=== PATIENT | male | born 1990 | race Caucasian/White ===

== ENCOUNTER 2018-06-30 03:08 | Emergency (ER) | payer SELFPAY ==
[2018-06-30 03:49] LABS: Absolute Lymphocytes (CBC) 3.2 K/uL (0.7-4.9); Basophils % 0.7 % (0-1.3); Eosinophils % 0.8 % (0-4.4); Hematocrit 46.2 % (39.6-49.0); MPV 8.2 fL (7.6-11.3); Monocytes % 7.1 % (3.3-12.3)
[2018-06-30 03:52] LABS: Protime INR 1.09
[2018-06-30] MEDS ORDERED: NA CHLORIDE 0.9% 1,000 ML ONE ×2 (03:59→05:02)
[2018-06-30 04:28] LABS: ALT/SGPT 33 U/L (12-78); AST/SGOT 17 U/L (15-37); Albumin 4.3 g/dL (3.4-5.0); Alkaline Phosphatase 83 U/L (45-117); BUN Blood Urea Nitrogen 21 mg/dL (7-18); Bicarbonate 21 mmol/L (21-32); Bilirubin Direct 0.3 mg/dL (0-0.2); Bilirubin Total 1.4 mg/dL (0.2-1.0); Glucose Level 118 mg/dL (74-106); Potassium 3.2 mmol/L (3.5-5.1); Protein, Total 8.1 g/dL (6.4-8.2); Sodium Level 138 mmol/L (136-145)
[2018-06-30] MEDS ORDERED: POTASSIUM 25 MEQ EFFERV TAB ONE (05:02)
[2018-06-30 05:22] LABS: Urine Blood NEGATIVE (NEG); Urine Glucose NEGATIVE (NEG); Urine Protein NEGATIVE (NEG); Urine Specific Gravity <1.005 (1.005-1.030)
--- NOTE | 2018-06-30 05:22 | ER ---
Nurse's Notes [facility] Name: Vic Hernandez Age: 27 yrs Sex: Male : 1990 Arrival Date: 06/30/2018 Time: 03:19 Bed 7 Private MD: Diagnosis: Palpitations;Abuse of non-psychoactive substances;Hypokalemia;Unspecified kidney failure-insufficency Presentation: 06/30 03:15 Presenting complaint: EMS states: Called for patient with complaint of palpitations; lp1 States meth use about 2 hours ago, + ETOH, + Xanax; States hx of cardiac arrythmia. Transition of care: patient was not received from another setting of care. Onset of symptoms was June 30, 2018. Risk Assessment: Do you want to hurt yourself or someone else? Patient reports no desire to harm self or others. Initial Sepsis Screen: Does the patient meet any 2 criteria? RR > 20 per min. HR > 90 bpm. Does the patient have a suspected source of infection? No. Patient's initial sepsis screen is negative. Care prior to arrival: None. 03:15 Method Of Arrival: EMS: [facility] lp1 03:15 Acuity: ARISTIDES 2 lp1 Historical: - Allergies: 03:31 No Known Allergies; lp1 - Home Meds: 03:31 None [Active]; lp1 - PMHx: 03:31 ADD/ADHD; Anxiety; heart arrythmia; lp1 - PSHx: 03:31 None; lp1 - Immunization history:: Adult Immunizations up to date. - Social history:: Smoking status: Patient uses tobacco products, denies chronic smoking, but will smoke occasionally. - Ebola Screening: : No symptoms or risks identified at this time. - Family history:: not pertinent. Screenin:32 Abuse screen: Denies threats or abuse. Denies injuries from another. Nutritional lp1 screening: No deficits noted. Tuberculosis screening: No symptoms or risk factors identified. Fall Risk None identified. Assessment: 03:32 General: Appears uncomfortable, Behavior is anxious. Pain: Denies pain. Neuro: Level of lp1 Consciousness is awake, alert, obeys commands, Oriented to person, place, time, situation. Cardiovascular: Patient's skin is warm and dry. Respiratory: Respiratory effort is even, Breath sounds are clear bilaterally. Denies shortness of breath. GI: No deficits noted. : No deficits noted. EENT: No deficits noted. Derm: Skin is pink, warm \T\ dry. Musculoskeletal: No deficits noted. 04:30 Reassessment: Patient appears in no apparent distress at this time. Patient and/or lp1 family updated on plan of care and expected duration. Pain level reassessed. Patient states feeling better. 05:30 Reassessment: Patient and/or family updated on plan of care and expected duration. Pain lp1 level reassessed. Patient resting, eyes closed, respirations unlabored Patient states symptoms have improved. 05:57 Reassessment: Patient waiting for Taxi to arrive for ride home. lp1 Vital Signs: 03:15 BP 149 / 108; Pulse 117; Resp 24; Temp 98(O); Pulse Ox 100% on R/A; Weight 77.11 kg; lp1 Height 5 ft. 7 in. (170.18 cm); Pain 0/10; 03:37 BP 145 / 102; Pulse 108; Resp 20; Pulse Ox 99% on R/A; lp1 04:25 BP 136 / 85; Pulse 106; Resp 19; Pulse Ox 98% on R/A; lp1 05:25 BP 144 / 92; Pulse 90; Resp 20; Pulse Ox 98% on R/A; Pain 0/10; lp1 05:56 BP 137 / 89; Pulse 87; Resp 20; Pulse Ox 97% on R/A; Pain 0/10; lp1 03:15 Body Mass Index 26.63 (77.11 kg, 170.18 cm) lp1 ED Course: 03:14 Inserted saline lock: 20 gauge in right antecubital area, using aseptic technique. lp1 Blood collected. 03:18 EKG done, by ED staff, reviewed by Alvarez Leiva MD. lp1 03:19 Patient arrived in ED. ds1 03:22 Peg Yin, RN is Primary Nurse. lp1 03:27 Triage completed. lp1 03:30 Arm band placed on left wrist. lp1 03:32 Patient has correct armband on for positive identification. Placed in gown. Cardiac lp1 monitor on. Pulse ox on. NIBP on. 04:13 Alvarez Leiva MD is Attending Physician. shawn 05:17 Chest Single View XRAY In Process Unspecified. EDMS 05:26 No provider procedures requiring assistance completed. lp1 05:56 IV discontinued, No redness/swelling at site. Pressure dressing applied. lp1 Administered Medications: 03:49 Drug: NS 0.9% 1000 ml Route: IV; Rate: 1000 ml; Site: right antecubital; lp1 05:06 Follow up: IV Status: Completed infusion; IV Intake: 1000ml lp1 05:07 Drug: NS 0.9% 1000 ml Route: IV; Rate: 1 bolus; Site: right antecubital; lp1 05:57 Follow up: IV Status: Completed infusion; IV Intake: 1000ml lp1 05:07 Drug: Potassium Effervescent Tablet 50 mEq Route: PO; lp1 05:57 Follow up: Response: No adverse reaction lp1 Intake: 05:06 IV: 1000ml; Total: 1000ml. lp1 05:57 IV: 1000ml; Total: 2000ml. lp1 Outcome: 05:22 Discharge ordered by MD. escobar 05:56 Discharged to home ambulatory, with taxi lp1 05:56 Condition: good 05:56 Discharge instructions given to patient, Instructed on discharge instructions, follow up and referral plans. Demonstrated understanding of instructions, follow-up care. 06:14 Patient left the ED. lp1 Signatures: Dispatcher [employer] EDMS Alvarez Leiva MD MD cha Sanford, Demi ds1 Peg Yin, RN RN lp1 Corrections: (The following items were deleted from the chart) 03:30 03:30 BP 149 / 108; Pulse 117bpm; Resp 24bpm; Pulse Ox 100% RA; Temp 98F Oral; 77.11 lp1 kg; Height 5 ft. 7 in.; BMI: 26.6; Pain 0/10; lp1
--- NOTE | 2018-06-30 05:23 | EDPHYS ---
Physician Documentation [facility] Name: Vic Hernandez Age: 27 yrs Sex: Male : 1990 Arrival Date: 06/30/2018 Time: 03:19 Bed 7 Private MD: ED Physician Alvarez Leiva HPI: 06/30 04:47 This 27 yrs old Male presents to ER via EMS with complaints of Palpitations. shawn 04:47 The patient presents with a history of irregular heart beat, heart racing. Context: The shawn symptoms occur with anxiety. Onset: The symptoms/episode began/occurred just prior to arrival. Duration: The patient or guardian reports a single episode, that is still ongoing. Modifying factors: The symptoms are aggravated by nothing. The symptoms are alleviated by nothing. Associated signs and symptoms: The patient has no apparent associated signs or symptoms. Severity of symptoms: At their worst the symptoms were moderate. The patient has not experienced similar symptoms in the past. Historical: - Allergies: 03:31 No Known Allergies; lp1 - Home Meds: 03:31 None [Active]; lp1 - PMHx: 03:31 ADD/ADHD; Anxiety; heart arrythmia; lp1 - PSHx: 03:31 None; lp1 - Immunization history:: Adult Immunizations up to date. - Social history:: Smoking status: Patient uses tobacco products, denies chronic smoking, but will smoke occasionally. - Ebola Screening: : No symptoms or risks identified at this time. - Family history:: not pertinent. ROS: 04:47 Constitutional: Negative for fever, chills, and weight loss, Eyes: Negative for injury, shawn pain, redness, and discharge, ENT: Negative for injury, pain, and discharge, Neck: Negative for injury, pain, and swelling, Respiratory: Negative for shortness of breath, cough, wheezing, and pleuritic chest pain, Abdomen/GI: Negative for abdominal pain, nausea, vomiting, diarrhea, and constipation, Back: Negative for injury and pain, : Negative for injury, bleeding, discharge, and swelling, MS/Extremity: Negative for injury and deformity, Skin: Negative for injury, rash, and discoloration, Neuro: Negative for headache, weakness, numbness, tingling, and seizure, Psych: Negative for depression, anxiety, suicide ideation, homicidal ideation, and hallucinations, Allergy/Immunology: Negative for hives, rash, and allergies, Endocrine: Negative for neck swelling, polydipsia, polyuria, polyphagia, and marked weight changes, Hematologic/Lymphatic: Negative for swollen nodes, abnormal bleeding, and unusual bruising. 04:47 Cardiovascular: Positive for chest pain, palpitations. Exam: 04:47 Constitutional: This is a well developed, well nourished patient who is awake, alert, shawn and in no acute distress. Head/Face: Normocephalic, atraumatic. Eyes: Pupils equal round and reactive to light, extra-ocular motions intact. Lids and lashes normal. Conjunctiva and sclera are non-icteric and not injected. Cornea within normal limits. Periorbital areas with no swelling, redness, or edema. ENT: Nares patent. No nasal discharge, no septal abnormalities noted. Tympanic membranes are normal and external auditory canals are clear. Oropharynx with no redness, swelling, or masses, exudates, or evidence of obstruction, uvula midline. Mucous membranes moist. Neck: Trachea midline, no thyromegaly or masses palpated, and no cervical lymphadenopathy. Supple, full range of motion without nuchal rigidity, or vertebral point tenderness. No Meningismus. Chest/axilla: Normal chest wall appearance and motion. Nontender with no deformity. No lesions are appreciated. Cardiovascular: Regular rate and rhythm with a normal S1 and S2. No gallops, murmurs, or rubs. Normal PMI, no JVD. No pulse deficits. Respiratory: Lungs have equal breath sounds bilaterally, clear to auscultation and percussion. No rales, rhonchi or wheezes noted. No increased work of breathing, no retractions or nasal flaring. Abdomen/GI: Soft, non-tender, with normal bowel sounds. No distension or tympany. No guarding or rebound. No evidence of tenderness throughout. Back: No spinal tenderness. No costovertebral tenderness. Full range of motion. Skin: Warm, dry with normal turgor. Normal color with no rashes, no lesions, and no evidence of cellulitis. MS/ Extremity: Pulses equal, no cyanosis. Neurovascular intact. Full, normal range of motion. Neuro: Awake and alert, GCS 15, oriented to person, place, time, and situation. Cranial nerves II-XII grossly intact. Motor strength 5/5 in all extremities. Sensory grossly intact. Cerebellar exam normal. Normal gait. Psych: Awake, alert, with orientation to person, place and time. Behavior, mood, and affect are within normal limits. 04:47 Musculoskeletal/extremity: DVT Exam: No signs of deep vein thrombosis. no pain, no swelling, no tenderness, negative Homans' sign noted on exam, no appreciated bluish discoloration, no erythema, no increased warmth. Vital Signs: 03:15 BP 149 / 108; Pulse 117; Resp 24; Temp 98(O); Pulse Ox 100% on R/A; Weight 77.11 kg; lp1 Height 5 ft. 7 in. (170.18 cm); Pain 0/10; 03:37 BP 145 / 102; Pulse 108; Resp 20; Pulse Ox 99% on R/A; lp1 04:25 BP 136 / 85; Pulse 106; Resp 19; Pulse Ox 98% on R/A; lp1 05:25 BP 144 / 92; Pulse 90; Resp 20; Pulse Ox 98% on R/A; Pain 0/10; lp1 05:56 BP 137 / 89; Pulse 87; Resp 20; Pulse Ox 97% on R/A; Pain 0/10; lp1 03:15 Body Mass Index 26.63 (77.11 kg, 170.18 cm) lp1 MDM: 04:13 Patient medically screened. [facility] 04:49 Data reviewed: vital signs, nurses notes, lab test result(s), EKG, radiologic studies, shawn plain films. 06/30 03:28 Order name: Acetaminophen; Complete Time: 04:46 06/30 03:28 Order name: Basic Metabolic Panel; Complete Time: 04:46 06/30 03:28 Order name: CBC with Diff; Complete Time: 04:46 06/30 03:28 Order name: ETOH Level; Complete Time: 04:46 06/30 03:28 Order name: Hepatic Function; Complete Time: 04:46 06/30 03:28 Order name: PT-INR; Complete Time: 04:46 06/30 03:28 Order name: Ptt, Activated; Complete Time: 04:46 06/30 03:28 Order name: Salicylate; Complete Time: 04:46 06/30 03:28 Order name: Urine Drug Screen lp1 06/30 03:28 Order name: Troponin (emerg Dept Use Only); Complete Time: 04:46 [facility] 06/30 04:50 Order name: Chest Single View XRAY [facility] 06/30 05:04 Order name: Urine Dipstick--Ancillary (enter results) [facility] 06/30 03:28 Order name: EKG; Complete Time: 03:32 [facility] 06/30 03:28 Order name: EKG - Nurse/Tech; Complete Time: 03:36 [facility] 06/30 03:28 Order name: IV Saline Lock; Complete Time: 03:36 06/30 03:28 Order name: Labs collected and sent; Complete Time: 03:36 [facility] 06/30 03:28 Order name: Urine Dipstick-Ancillary (obtain specimen); Complete Time: 05:11 lp Administered Medications: 03:49 Drug: NS 0.9% 1000 ml Route: IV; Rate: 1000 ml; Site: right antecubital; 1 05:06 Follow up: IV Status: Completed infusion; IV Intake: 1000ml lp1 05:07 Drug: NS 0.9% 1000 ml Route: IV; Rate: 1 bolus; Site: right antecubital; lp1 05:57 Follow up: IV Status: Completed infusion; IV Intake: 1000ml lp1 05:07 Drug: Potassium Effervescent Tablet 50 mEq Route: PO; lp1 05:57 Follow up: Response: No adverse reaction 1 Disposition: 06/30/18 05:22 Discharged to Home. Impression: Palpitations, Abuse of non-psychoactive substances, Hypokalemia, Unspecified kidney failure - insufficency. - Condition is Stable. - Discharge Instructions: Stimulant Use Disorder-Amphetamines, Potassium Content of Foods, Palpitations, Substance Use Disorder, Stimulant Use Disorder-Methamphetamines, Palpitations, [id number], Chronic Kidney Disease, Adult, [id number], Hypokalemia. - Medication Reconciliation Form, Thank You Letter, Antibiotic Education, Prescription Opioid Use form. - Follow up: Private Physician; When: 2 - 3 days; Reason: Recheck today's complaints, Continuance of care, Re-evaluation by your physician. - Problem is new. - Symptoms have improved. Signatures: Dispatcher [employer] Alvarez Saenz MD MD cha Pena, Peg, RN RN lp1 Corrections: (The following items were deleted from the chart) 06:14 05:22 06/30/2018 05:22 Discharged to Home. Impression: Palpitations; Abuse of lp1 non-psychoactive substances; Hypokalemia; Unspecified kidney failure - insufficency. Condition is Stable. Discharge Instructions: Stimulant Use Disorder-Amphetamines, Potassium Content of Foods, Palpitations, Substance Use Disorder, Stimulant Use Disorder-Methamphetamines, Palpitations, [id number], Chronic Kidney Disease, Adult, Ilve-ry-Lbod, Hypokalemia. Forms are Medication Reconciliation Form, Thank You Letter, Antibiotic Education, Prescription Opioid Use. Follow up: Private Physician; When: 2 - 3 days; Reason: Recheck today's complaints, Continuance of care, Re-evaluation by your physician. Problem is new. Symptoms have improved. shawn
[2018-06-30 05:37] LABS: Barbiturates NEGATIVE (NEGATIVE); Benzodiazepines NEGATIVE (NEGATIVE); Cocaine NEGATIVE (NEGATIVE); METHAMPHETAM POSITIVE (NEGATIVE); Methadone NEGATIVE (NEGATIVE); Opiates NEGATIVE (NEGATIVE); Phencyclidine NEGATIVE (NEGATIVE); THC Cannibis NEGATIVE (NEGATIVE)
--- NOTE | 2018-06-30 07:11 | EKG ---
Test Date: 2018-06-30 Test Time: 03:18:05 Help Desk Engineer: ROSARIO MEASUREMENT RESULTS: Intervals: Rate: 107 HI: 184 QRSD: 96 QT: 332 QTc: 443 [place]: P: 59 HI: 184 QRS: 45 T: -20 INTERPRETIVE STATEMENTS: Sinus tachycardia T wave abnormality, consider inferior ischemia Abnormal ECG Compared to ECG 11/14/2015 16:09:51 T-wave abnormality now present Possible ischemia now present Sinus rhythm no longer present ST (T wave) deviation no longer present Electronically Signed On 06-30-18 07:11:09 CDT by Keyur Keane
--- NOTE | 2018-06-30 08:36 | RAD REPORT ---
EXAM DESCRIPTION: RAD - Chest Single View - 06/30/2018 5:16 am CLINICAL HISTORY: CHEST PAIN Chest pain. COMPARISON: Chest Single View dated 06/05/2016; CHEST SINGLE VIEW dated 09/14/2008; CHEST PA AND LAT 2 VIEW dated 05/30/2005 FINDINGS: Portable technique limits examination quality. The lungs are grossly clear. The heart is normal in size. No displaced fractures. IMPRESSION: No acute intrathoracic process suspected.
== END 2018-06-30 06:14 | disposition home or self-care (01) ==
LOC: ER 03:08
DX: R00.2 Palpitations (principal); F55.8 Abuse of other non-psychoactive substances; E87.6 Hypokalemia; N19 Unspecified kidney failure; F90.9 Attention-deficit hyperactivity disorder, unspecified type; F41.9 Anxiety disorder, unspecified; Z72.0 Tobacco use
CPT/HCPCS: 36415; 71045; 80048; 80076; 80307; 80320; 80329; 81003; 84484; 85025; 85610; 85730; 93005; 96360; 96361; 99285; J7030

== ENCOUNTER 2018-08-31 22:05 | Emergency (ER) | payer SELFPAY ==
--- NOTE | 2018-08-31 22:54 | EDPHYS ---
Physician Documentation [facility] Name: Vic Hernandez Age: 27 yrs Sex: Male : 1990 Arrival Date: 08/31/2018 Time: 22:07 Bed 13 Private MD: ED Physician Crow Go HPI: 08/31 22:49 This 27 yrs old Male presents to ER via Ambulatory with complaints of Boil. gs 22:49 The patient presents with an abscess of the suprapubic area. Description: The affected gs area is small, confluent, draining, erythematous. Onset: The symptoms/episode began/occurred 2 day(s) ago. Possible cause(s): unknown. Associated signs and symptoms: Pertinent negatives: fever. Modifying factors: the symptoms are alleviated by nothing, the symptoms are aggravated by squeezing the lesion and expressing the contents, touching. Severity of symptoms: At their worst the symptoms were moderate, in the emergency department the symptoms are unchanged. The patient has experienced similar episodes in the past, a few times. Historical: - Allergies: 22:25 No Known Allergies; ak1 - Home Meds: 22:25 hydroxyzine HCl 25 mg Oral tab 1 tab as needed for Anxiety [Active]; ak1 - PMHx: 22:25 ADD/ADHD; Anxiety; Heart Arrythmia; ak1 - PSHx: 22:25 None; ak1 - Immunization history:: Adult Immunizations unknown. - Social history:: Smoking status: Patient uses tobacco products, vape. - Ebola Screening: : No symptoms or risks identified at this time. ROS: 22:49 All other systems are negative. gs Exam: 22:49 Head/Face: Normocephalic, atraumatic. Eyes: Pupils equal round and reactive to light, gs extra-ocular motions intact. Lids and lashes normal. Conjunctiva and sclera are non-icteric and not injected. Cornea within normal limits. Periorbital areas with no swelling, redness, or edema. ENT: Nares patent. No nasal discharge, no septal abnormalities noted. Tympanic membranes are normal and external auditory canals are clear. Oropharynx with no redness, swelling, or masses, exudates, or evidence of obstruction, uvula midline. Mucous membranes moist. Neck: Trachea midline, no thyromegaly or masses palpated, and no cervical lymphadenopathy. Supple, full range of motion without nuchal rigidity, or vertebral point tenderness. No Meningismus. Chest/axilla: Normal chest wall appearance and motion. Nontender with no deformity. No lesions are appreciated. Cardiovascular: Regular rate and rhythm with a normal S1 and S2. No gallops, murmurs, or rubs. Normal PMI, no JVD. No pulse deficits. Respiratory: Lungs have equal breath sounds bilaterally, clear to auscultation and percussion. No rales, rhonchi or wheezes noted. No increased work of breathing, no retractions or nasal flaring. Abdomen/GI: Soft, non-tender, with normal bowel sounds. No distension or tympany. No guarding or rebound. No evidence of tenderness throughout. Back: No spinal tenderness. No costovertebral tenderness. Full range of motion. MS/ Extremity: Pulses equal, no cyanosis. Neurovascular intact. Full, normal range of motion. Neuro: Awake and alert, GCS 15, oriented to person, place, time, and situation. Cranial nerves II-XII grossly intact. Motor strength 5/5 in all extremities. Sensory grossly intact. Cerebellar exam normal. Normal gait. 22:49 Constitutional: The patient appears alert, awake. 22:49 Skin: abscess, that is small, of the suprapubic area, with drainage, with induration, cellulitis, that is mild, on the suprapubic area. Vital Signs: 22:22 BP 132 / 90; Pulse 87; Resp 16; Temp 98.2(O); Pulse Ox 99% on R/A; Weight 76.2 kg (R); ak1 Height 5 ft. 7 in. (170.18 cm) (R); Pain 8/10; 22:22 Body Mass Index 26.31 (76.20 kg, 170.18 cm) ak1 MDM: 22:38 Patient medically screened. gs 22:49 Differential diagnosis: abscess, cellulitis. Data reviewed: vital signs, nurses notes. gs Response to treatment: the patient's symptoms have mildly improved after treatment. ED course: asked for pain meds he has not tried any tylenol or motrin was instructed to try before a rx would be given. Administered Medications: No medications were administered Disposition: 08/31/18 22:52 Discharged to Home. Impression: Cutaneous abscess of trunk, unspecified, Cellulitis of trunk. - Condition is Stable. - Discharge Instructions: Skin Abscess. - Prescriptions for Bactrim DS 800- 160 mg Oral Tablet - take 2 tablet by ORAL route every 12 hours for 7 days; 28 tablet. - Medication Reconciliation Form, Thank You Letter, Antibiotic Education, Prescription Opioid Use form. - Follow up: Private Physician; When: 2 - 3 days; Reason: Re-evaluation by your physician. Signatures: Suzanne Colmenares RN RN cr4 Jade Barfield RN RN ak1 Crow Go MD MD Corrections: (The following items were deleted from the chart) 23:12 22:52 08/31/2018 22:52 Discharged to Home. Impression: Cutaneous abscess of trunk, cr4 unspecified; Cellulitis of trunk. Condition is Stable. Forms are Medication Reconciliation Form, Thank You Letter, Antibiotic Education, Prescription Opioid Use. Follow up: Private Physician; When: 2 - 3 days; Reason: Re-evaluation by your physician. gs
--- NOTE | 2018-08-31 22:54 | ER ---
Nurse's Notes [facility] Name: Vic Hernandez Age: 27 yrs Sex: Male : 1990 Arrival Date: 08/31/2018 Time: 22:07 Bed 13 Private MD: Diagnosis: Cutaneous abscess of trunk, unspecified;Cellulitis of trunk Presentation: 08/31 22:23 Presenting complaint: Patient states: abscess to right lower abd X5 days with ak1 discharge. pt c/o abscess on penis shaft with no discharge at this time. Transition of care: patient was not received from another setting of care. Onset of symptoms is unknown. Risk Assessment: Do you want to hurt yourself or someone else? Patient reports no desire to harm self or others. Initial Sepsis Screen: Does the patient meet any 2 criteria? No. Patient's initial sepsis screen is negative. Does the patient have a suspected source of infection? No. Patient's initial sepsis screen is negative. Care prior to arrival: None. 22:23 Acuity: ARISTIDES 4 ak1 22:23 Method Of Arrival: Ambulatory ak1 Triage Assessment: 22:25 General: Appears in no apparent distress. Behavior is calm, cooperative. ak1 Historical: - Allergies: 22:25 No Known Allergies; ak1 - Home Meds: 22:25 hydroxyzine HCl 25 mg Oral tab 1 tab as needed for Anxiety [Active]; ak1 - PMHx: 22:25 ADD/ADHD; Anxiety; Heart Arrythmia; ak1 - PSHx: 22:25 None; ak1 - Immunization history:: Adult Immunizations unknown. - Social history:: Smoking status: Patient uses tobacco products, vape. - Ebola Screening: : No symptoms or risks identified at this time. Screenin:25 Abuse screen: Denies threats or abuse. Denies injuries from another. Nutritional ak1 screening: No deficits noted. Tuberculosis screening: No symptoms or risk factors identified. Fall Risk None identified. Assessment: 22:35 General: Appears uncomfortable, slender, well groomed, Behavior is calm, cooperative. cr4 Pain: Complains of pain in pelvis and suprapubic area. Neuro: No deficits noted. Cardiovascular: No deficits noted. Respiratory: No deficits noted. GI: No deficits noted. : No deficits noted. EENT: No deficits noted. Derm: Skin has lesions on boil that is draining small amounts of blood, area red and tender to touch. Skin is red. Musculoskeletal: No deficits noted. Vital Signs: 22:22 BP 132 / 90; Pulse 87; Resp 16; Temp 98.2(O); Pulse Ox 99% on R/A; Weight 76.2 kg (R); ak1 Height 5 ft. 7 in. (170.18 cm) (R); Pain 8/10; 22:22 Body Mass Index 26.31 (76.20 kg, 170.18 cm) ak1 ED Course: 22:07 Patient arrived in ED. ds1 22:19 Crow Go MD is Attending Physician. 22:22 Arm band placed on Patient placed in an exam room, on a stretcher, on pulse oximetry, ak1 Patient notified of wait time. 22:24 Triage completed. ak1 22:25 Patient has correct armband on for positive identification. Bed in low position. Call ak1 light in reach. Side rails up X 1. Pulse ox on. NIBP on. 23:09 No provider procedures requiring assistance completed. Patient did not have IV access cr4 during this emergency room visit. Administered Medications: No medications were administered Outcome: 22:52 Discharge ordered by . 23:09 Discharged to home ambulatory. cr4 23:09 Condition: good 23:09 Discharge instructions given to patient, Instructed on discharge instructions, follow up and referral plans. medication usage, Demonstrated understanding of instructions, follow-up care, medications, instructed in use of hibiclens soap. 23:12 Patient left the ED. cr4 Signatures: Christine Prieto ds1 Suzanne Colmenares RN RN cr4 Jade Barfield RN RN ak1 Crow Go MD MD
== END 2018-08-31 23:12 | disposition home or self-care (01) ==
LOC: ER 22:05
DX: L03.319 Cellulitis of trunk, unspecified (principal); F90.9 Attention-deficit hyperactivity disorder, unspecified type; F41.9 Anxiety disorder, unspecified; Z72.0 Tobacco use
CPT/HCPCS: 99283

== ENCOUNTER 2018-09-07 13:55 | Emergency (ER) | payer SELFPAY ==
[2018-09-07 14:33] LABS: Urine Blood TRACE (NEG); Urine Glucose NEGATIVE (NEG); Urine Protein NEGATIVE (NEG); Urine pH 6.5 (5.0-7.0)
[2018-09-07 14:37] LABS: Absolute Lymphocytes (CBC) 2.7 K/uL (0.7-4.9); Basophils % 0.7 % (0-1.3); Eosinophils % 0.2 % (0-4.4); Hematocrit 46.3 % (39.6-49.0); Lymphocytes % 18.2 % (15.3-44.8); MPV 8.2 fL (7.6-11.3); Monocytes % 5.4 % (3.3-12.3)
--- NOTE | 2018-09-07 14:39 | RAD REPORT ---
EXAM DESCRIPTION: RAD - Chest Single View - 09/07/2018 2:33 pm CLINICAL HISTORY: CHEST PAIN Chest pain. COMPARISON: Chest Single View dated 06/30/2018; Chest Single View dated 06/05/2016; CHEST SINGLE VIEW dated 09/14/2008; CHEST PA AND LAT 2 VIEW dated 05/30/2005 FINDINGS: Portable technique limits examination quality. The lungs are grossly clear. The heart is upper limit of normal in size. No displaced fractures. IMPRESSION: No acute intrathoracic process suspected.
[2018-09-07 14:46] LABS: Barbiturates NEGATIVE (NEGATIVE); Benzodiazepines NEGATIVE (NEGATIVE); Cocaine NEGATIVE (NEGATIVE); METHAMPHETAM POSITIVE (NEGATIVE); Methadone NEGATIVE (NEGATIVE); Opiates NEGATIVE (NEGATIVE); Phencyclidine NEGATIVE (NEGATIVE); THC Cannibis NEGATIVE (NEGATIVE)
--- NOTE | 2018-09-07 14:51 | EKG ---
Test Date: 2018-09-07 Test Time: 14:43:47 Security Administrator: RICHA/ MEASUREMENT RESULTS: Intervals: Rate: 91 CO: 198 QRSD: 100 QT: 350 QTc: 430 [place]: P: 49 CO: 198 QRS: 2 T: 0 INTERPRETIVE STATEMENTS: Normal sinus rhythm Minimal voltage criteria for LVH, may be normal variant Borderline ECG Compared to ECG 06/30/2018 03:18:05 Left ventricular hypertrophy now present Sinus tachycardia no longer present T-wave abnormality no longer present Possible ischemia no longer present Electronically Signed On 09-07-18 14:51:08 CDT by Keyur Keane
[2018-09-07 14:56] LABS: Albumin 4.1 g/dL (3.4-5.0); Bilirubin Direct 0.2 mg/dL (0-0.2); Bilirubin Total 0.6 mg/dL (0.2-1.0); Magnesium 2.2 mg/dL (1.8-2.4); Potassium 3.7 mmol/L (3.5-5.1); Protein, Total 8.2 g/dL (6.4-8.2); Troponin (Emerg Dept Use Only) 0.03 ng/mL (0.0-0.045)
--- NOTE | 2018-09-07 16:03 | EDPHYS ---
Physician Documentation [facility] Name: Vic Hernandez Age: 27 yrs Sex: Male : 1990 Arrival Date: 09/07/2018 Time: 13:59 Bed 26 Private MD: ED Physician Crow Go HPI: 09/07 15:50 This 27 yrs old Male presents to ER via EMS with complaints of Chest pain, pm1 palpitations, anxiety. 15:50 The patient or guardian reports chest pain that is located primarily in the mid-sternal pm1 area. The pain does not radiate. Associated signs and symptoms: Pertinent positives: palpitations, Anxiety. The chest pain is described as sharp. Duration: The patient or guardian reports a single episode, that is now resolved. Modifying factors: The symptoms are alleviated by nothing. the symptoms are aggravated by Meth - smoke and ate it last night. Onset of palpitations, chest pain, and anxiety after drug use. Severity of pain: in the emergency department the pain has resolved. The patient has not recently seen a physician. Historical: - Allergies: 14:04 No Known Allergies; mg2 - Home Meds: 14:04 hydroxyzine HCl 25 mg Oral tab 1 tab as needed for Anxiety [Active]; Metoprolol mg2 Tartrate Oral [Active]; - PMHx: 14:04 ADD/ADHD; Anxiety; Heart Arrythmia; mg2 - PSHx: 14:04 None; mg2 - Immunization history:: Flu vaccine is not up to date. - Social history:: Smoking status: Patient uses tobacco products, vape, Patient uses alcohol, on a daily basis. street drugs, Methamphetamine (Meth). - Ebola Screening: : No symptoms or risks identified at this time. ROS: 15:50 Constitutional: Negative for fever, chills, and weight loss, Eyes: Negative for injury, pm1 pain, redness, and discharge, ENT: Negative for injury, pain, and discharge, Neck: Negative for injury, pain, and swelling, Respiratory: Negative for shortness of breath, cough, wheezing, and pleuritic chest pain. 15:50 Abdomen/GI: Negative for abdominal pain, nausea, vomiting, diarrhea, and constipation, Back: Negative for injury and pain, : Negative for injury, bleeding, discharge, and swelling, MS/Extremity: Negative for injury and deformity, Skin: Negative for injury, rash, and discoloration, Neuro: Negative for headache, weakness, numbness, tingling, and seizure. 15:50 Cardiovascular: Positive for chest pain, palpitations, Negative for edema. 15:50 Psych: Positive for anxiety, Negative for auditory hallucinations, visual hallucinations, homicidal ideation, suicide gesture, suicidal ideation. Exam: 15:50 Constitutional: This is a well developed, well nourished patient who is awake, alert, pm1 and in no acute distress. Head/Face: Normocephalic, atraumatic. Eyes: Pupils equal round and reactive to light, extra-ocular motions intact. Lids and lashes normal. Conjunctiva and sclera are non-icteric and not injected. Cornea within normal limits. Periorbital areas with no swelling, redness, or edema. ENT: Nares patent. No nasal discharge, no septal abnormalities noted. Tympanic membranes are normal and external auditory canals are clear. Oropharynx with no redness, swelling, or masses, exudates, or evidence of obstruction, uvula midline. Mucous membranes moist. Neck: Trachea midline, no thyromegaly or masses palpated, and no cervical lymphadenopathy. Supple, full range of motion without nuchal rigidity, or vertebral point tenderness. No Meningismus. Chest/axilla: Normal chest wall appearance and motion. Nontender with no deformity. No lesions are appreciated. Cardiovascular: Regular rate and rhythm with a normal S1 and S2. No gallops, murmurs, or rubs. Normal PMI, no JVD. No pulse deficits. Respiratory: Lungs have equal breath sounds bilaterally, clear to auscultation and percussion. No rales, rhonchi or wheezes noted. No increased work of breathing, no retractions or nasal flaring. Abdomen/GI: Soft, non-tender, with normal bowel sounds. No distension or tympany. No guarding or rebound. No evidence of tenderness throughout. Back: No spinal tenderness. No costovertebral tenderness. Full range of motion. Skin: Warm, dry with normal turgor. Normal color with no rashes, no lesions, and no evidence of cellulitis. MS/ Extremity: Pulses equal, no cyanosis. Neurovascular intact. Full, normal range of motion. 15:50 Neuro: Orientation: is normal, Motor: is normal, moves all fours, Sensation: is normal, no obvious gross deficits, Gait: is steady, at a normal pace, without difficulty. Vital Signs: 14:02 BP 144 / 101; Pulse 98; Resp 18; Temp 99.2; Pulse Ox 100% on R/A; Weight 76.2 kg; mg2 Height 5 ft. 6 in. (167.64 cm); Pain 0/10; 15:21 Pulse 97; Resp 18; Pulse Ox 100% on R/A; Pain 0/10; mg2 16:15 BP 149 / 91; Pulse 97; Resp 18; Temp 98; Pulse Ox 100% on R/A; Pain 0/10; mg2 14:02 Body Mass Index 27.12 (76.20 kg, 167.64 cm) mg2 MDM: 14:14 Patient medically screened. pm1 16:00 Data reviewed: vital signs. Data interpreted: Pulse oximetry: on room air is 100 %. pm1 Interpretation: normal. 16:00 Counseling: I had a detailed discussion with the patient and/or guardian regarding: the pm1 historical points, exam findings, and any diagnostic results supporting the discharge/admit diagnosis, lab results, radiology results, the need for outpatient follow up, to return to the emergency department if symptoms worsen or persist or if there are any questions or concerns that arise at home, Drug use cessation. 09/07 14:11 Order name: Basic Metabolic Panel; Complete Time: 15:[facility] [place] 09/07 14:11 Order name: CBC with Diff; Complete Time: 15:49 [facility] [place] 09/07 14:11 Order name: LFT's; Complete Time: 15:49 [facility] [place] 09/07 14:11 Order name: Magnesium; Complete Time: 15:49 [facility] [place] 09/07 14:11 Order name: NT PRO-BNP; Complete Time: 15:49 [facility] [place] 09/07 14:11 Order name: PT-INR; Complete Time: 14:54 [facility] [place] 09/07 14:11 Order name: Troponin (emerg Dept Use Only); Complete Time: 15:49 [facility] [place] 09/07 14:12 Order name: UDS; Complete Time: 14:54 [facility] [place] 09/07 14:19 Order name: Acetaminophen; Complete Time: 15:49 pm1 09/07 14:19 Order name: ETOH Level; Complete Time: 15:49 pm1 09/07 14:19 Order name: Ptt, Activated; Complete Time: 15:49 pm1 09/07 14:19 Order name: Salicylate; Complete Time: 15:49 pm1 09/07 14:31 Order name: Urine Dipstick--Ancillary (enter results) 09/07 14:33 Order name: Urine Dipstick-Ancillary EDND 09/07 14:05 Order name: EKG - Nurse/Tech; Complete Time: 14:51 mg2 09/07 14:11 Order name: XRAY Chest (1 view); Complete Time: 14:54 mg2 09/07 14:11 Order name: EKG; Complete Time: 14:12 mg2 09/07 14:11 Order name: Cardiac monitoring; Complete Time: 14:23 mg2 09/07 14:11 Order name: IV Saline Lock; Complete Time: 14:23 mg2 09/07 14:11 Order name: Labs collected and sent; Complete Time: 14:23 mg2 09/07 14:11 Order name: O2 Per Protocol; Complete Time: 14:23 mg2 09/07 14:11 Order name: O2 Sat Monitoring; Complete Time: 14:23 mg2 09/07 14:19 Order name: Urine Dipstick-Ancillary (obtain specimen); Complete Time: 14:23 pm1 Administered Medications: No medications were administered Disposition: 09/07/18 16:02 Discharged to Home. Impression: Other stimulant abuse - methamphetmine abuse, Chest pain, unspecified, Palpitations. - Condition is Stable. - Discharge Instructions: Nonspecific Chest Pain, Palpitations, Stimulant Use Disorder-Methamphetamines. - Medication Reconciliation Form, Thank You Letter, Antibiotic Education, Prescription Opioid Use form. - Follow up: Emergency Department; When: As needed; Reason: Worsening of condition. Follow up: Private Physician; When: 2 - 3 days; Reason: Recheck today's complaints, Continuance of care, Re-evaluation by your physician. - Problem is new. - Symptoms have improved. Addendum: 09/09/2018 07:37 Co-signature as Attending Physician, Crow Go MD. g s Signatures: Dispatcher [employer] [facility] Richard Guallpa, CULINARY SPECIALIST CULINARY SPECIALIST pm1 Crow Go MD MD Aristeo Strange RN RN mg2 Corrections: (The following items were deleted from the chart) 09/07 16:19 16:02 09/07/2018 16:02 Discharged to Home. Impression: Other stimulant abuse - mg2 methamphetmine abuse; Chest pain, unspecified; Palpitations. Condition is Stable. Forms are Medication Reconciliation Form, Thank You Letter, Antibiotic Education, Prescription Opioid Use. Follow up: Emergency Department; When: As needed; Reason: Worsening of condition. Follow up: Private Physician; When: 2 - 3 days; Reason: Recheck today's complaints, Continuance of care, Re-evaluation by your physician. Problem is new. Symptoms have improved. pm1
--- NOTE | 2018-09-07 16:03 | ER ---
Nurse's Notes [facility] Name: Vic Hernandez Age: 27 yrs Sex: Male : 1990 Arrival Date: 09/07/2018 Time: 13:59 Bed 26 Private MD: Diagnosis: Other stimulant abuse-methamphetmine abuse;Chest pain, unspecified;Palpitations Presentation: 09/07 13:59 Presenting complaint: EMS states: patient reported chest pain and palpitation and mg2 anxiety since last night. denies chest pain now. had 0.2 gm of meth last night. BGL-80 mg/dl, history of cardiac arrythmia on metoprolol. he also had hydroxyzine for his anxiety. Transition of care: patient was not received from another setting of care. Onset of symptoms was September 06, 2018. Risk Assessment: Do you want to hurt yourself or someone else? Patient reports no desire to harm self or others. Initial Sepsis Screen: Does the patient meet any 2 criteria? No. Patient's initial sepsis screen is negative. Does the patient have a suspected source of infection? No. Patient's initial sepsis screen is negative. Care prior to arrival: None. 13:59 Method Of Arrival: EMS mg2 13:59 Acuity: ARISTIDES 3 mg2 Historical: - Allergies: 14:04 No Known Allergies; mg2 - Home Meds: 14:04 hydroxyzine HCl 25 mg Oral tab 1 tab as needed for Anxiety [Active]; Metoprolol mg2 Tartrate Oral [Active]; - PMHx: 14:04 ADD/ADHD; Anxiety; Heart Arrythmia; mg2 - PSHx: 14:04 None; mg2 - Immunization history:: Flu vaccine is not up to date. - Social history:: Smoking status: Patient uses tobacco products, vape, Patient uses alcohol, on a daily basis. street drugs, Methamphetamine (Meth). - Ebola Screening: : No symptoms or risks identified at this time. Screenin:26 Abuse screen: Denies threats or abuse. Denies injuries from another. Nutritional mg2 screening: No deficits noted. Tuberculosis screening: No symptoms or risk factors identified. Fall Risk IV access (20 points). Assessment: 14:24 General: Appears in no apparent distress. comfortable, Behavior is calm, cooperative. mg2 Pain: Denies pain. Neuro: Level of Consciousness is awake, alert, obeys commands, Oriented to person, place, time, situation. Cardiovascular: Capillary refill < 3 seconds Patient's skin is warm and dry. Cardiovascular: Reports chest pain, palpitations. Respiratory: Airway is patent Respiratory effort is even, unlabored, Respiratory pattern is regular, symmetrical. GI: No signs and/or symptoms were reported involving the gastrointestinal system. : No signs and/or symptoms were reported regarding the genitourinary system. EENT: No signs and/or symptoms were reported regarding the EENT system. Derm: Skin is intact, is healthy with good turgor, Skin is pink, warm \T\ dry. normal. Musculoskeletal: Circulation, motion, and sensation intact. Capillary refill < 3 seconds. 14:26 Neuro: Reports anxiety last night. mg2 Vital Signs: 14:02 BP 144 / 101; Pulse 98; Resp 18; Temp 99.2; Pulse Ox 100% on R/A; Weight 76.2 kg; mg2 Height 5 ft. 6 in. (167.64 cm); Pain 0/10; 15:21 Pulse 97; Resp 18; Pulse Ox 100% on R/A; Pain 0/10; mg2 16:15 BP 149 / 91; Pulse 97; Resp 18; Temp 98; Pulse Ox 100% on R/A; Pain 0/10; mg2 14:02 Body Mass Index 27.12 (76.20 kg, 167.64 cm) mg2 ED Course: 13:59 Patient arrived in ED. mg2 14:02 Triage completed. mg2 14:05 Aristeo Strange, RICKY is Primary Nurse. mg2 14:05 Arm band placed on. mg2 14:11 Richard Guallpa NP is PHCP. pm1 14:11 Crow Go MD is Attending Physician. pm1 14:26 No provider procedures requiring assistance completed. Inserted saline lock: 20 gauge mg2 in left antecubital area, using aseptic technique. Blood collected. by ANNA Bryan Tech. 14:27 Patient has correct armband on for positive identification. surveillance system monitor on. Pulse mg2 ox on. NIBP on. Door closed. Warm blanket given. 14:31 X-ray completed. Portable x-ray completed in exam room. Patient tolerated procedure ls3 well. 14:34 XRAY Chest (1 view) In Process Unspecified. EDMS 14:48 EKG done, by configuration technician. reviewed by Crow Go MD. tc 16:15 IV discontinued, intact, bleeding controlled, No redness/swelling at site. Pressure mg2 dressing applied. Administered Medications: No medications were administered Outcome: 16:02 Discharge ordered by . pm1 16:15 Discharged to home ambulatory. mg2 16:15 Condition: stable 16:15 Discharge instructions given to patient, Instructed on discharge instructions, follow up and referral plans. Demonstrated understanding of instructions, follow-up care. 16:19 Patient left the ED. mg2 Signatures: Dispatcher [employer] EDMS Pinky Reaves, plowing gardens EKG Ttc Richard Guallpa, KAROL CARBURETOR REBUILDER pm1 Aristeo Strange, RICKY RN mg2 Az Mahmood ls3
== END 2018-09-07 16:19 | disposition home or self-care (01) ==
LOC: ER 13:55
DX: F15.10 Other stimulant abuse, uncomplicated (principal); R07.9 Chest pain, unspecified; R00.2 Palpitations; F41.9 Anxiety disorder, unspecified; F90.9 Attention-deficit hyperactivity disorder, unspecified type; Z72.0 Tobacco use
CPT/HCPCS: 36415; 71045; 80048; 80076; 80307; 80320; 80329; 81003; 83735; 83880; 84484; 85025; 85610; 85730; 93005; 99284

== ENCOUNTER 2018-10-30 23:06 | Emergency (ER) | payer SELFPAY ==
--- OUTSIDE RECORDS SUMMARY | 2018-10-30 23:08 | XMS REPORT | Summary of Care ---
:1990 Author Organization [facility] - Health Address [address] [place] [id number] Care Team Providers Name Role Phone Lupe Arora Primary Care Provider Reason for Visit Reason Comments Penis/Scrotum Problem Auth/Cert Status Reason Specialty Diagnoses / Referred By Referred To Procedures Contact Contact [facility] [address] [place] [address] [place] [address] Encounter Details Date Type Department Care Team Description 10/20/2018 Emergency [facility]Emer[facility] Kassandra Ybarra, Folliculitis (Primary Department NURSE MONITORING Dx) [address] [place] [address] [facility] [place] [address] [id number] [place], [place] [id number] Allergies No Known Allergiesdocumented as of this encounter (statuses as of 10/20/2018) Medications Medication Sig Dispensed Refills Start Date End Date Status losartan 50 mg tablet Take 50 mg by 0 Active mouth daily. cephALEXin (KEFLEX) Take 1 capsule 28 capsule 0 10/20/2018 10/27/2018 Active 500 mg by mouth 4 capsuleIndications: (four) times Folliculitis daily for 7 days. ibuprofen 600 mg Take 1 tablet 30 tablet 0 10/20/2018 Active tabletIndications: by mouth every Folliculitis 6 (six) hours as needed for Pain (scale 1-3). chlorhexidine 4 % Apply to 1 Bottle 2 10/20/2018 Active external area(s) once liquidIndications: daily as needed Folliculitis for Wound care. documented as of this encounter (statuses as of 10/20/2018) Active Problems No known active problemsdocumented as of this encounter (statuses as of 2018) Social History Tobacco Use Types Packs/Day Years Used Date Never Assessed Sex Assigned at Date Recorded Not on file Job Start Date Occupation Industry Not on file Not on file Not on file Travel History Travel Start Travel End No recent travel history available. documented as of this encounter Last Filed Vital Signs Vital Sign Reading Time Taken Comments Blood Pressure 134/77 10/20/2018 8:06 PM CDT Pulse 98 10/20/2018 8:06 PM CDT Temperature 37.1 C (98.8 F) 10/20/2018 8:06 PM CDT Respiratory Rate 20 10/20/2018 8:06 PM CDT Oxygen Saturation 98% 10/20/2018 8:06 PM CDT Inhaled Oxygen Concentration - - Weight 77.1 kg (170 lb) 10/20/2018 8:06 PM CDT Height 167.6 cm (5' 6") 10/20/2018 8:06 PM CDT Body Mass Index 27.44 10/20/2018 8:06 PM CDT documented in this encounter Discharge Instructions Kassandra Ortiz NP - 10/20/2018Diagnosis: Folliculitis Prescriptions for Cephalexin , Motrin, Chlorhexidine liquid Sent to your [facility] Follow up in the clinic as needed ALWAYS USE PROTECTION AttachmentsThe following attachments cannot be sent through Care Everywhere.Folliculitis (Rwandan)Folliculitis, Understanding (Rwandan) documented in this encounter Plan of Treatment Health Maintenance Due Date Last Done Comments VARICELLA VACCINES (1 of 2 - 13+ 2001 2-dose series) DTaP,Tdap,and Td Vaccines (1 - 12/27/2007 Tdap) INFLUENZA VACCINE (#1) 2018 PNEUMOCOCCAL 0-64 YEARS COMBINED Aged Out No longer eligible based on SERIES patient's age to complete this topic documented as of this encounter Procedures Procedure Name Priority Date/Time Associated Diagnosis Comments NOTICE OF PRIVACY Routine 10/20/2018 7:57 PM CDT PRACTICES CONSENT/REFUSAL FOR Routine 10/20/2018 7:56 PM CDT DIAGNOSIS AND TREATMENT documented in this encounter Results Not on filedocumented in this encounter Visit Diagnoses Diagnosis Folliculitis - Primary Other specified disease of hair and hair follicles documented in this encounter Administered Medications Medication Order MAR Action Action Date Dose Rate Site cephALEXin (KEFLEX) capsule 500 Given 10/20/2018 8:42 PM CDT 500 mg mg 500 mg, Oral, ONCE, 1 dose, Tue10/20/18 at 2130, JOEL, Reason for Anti-Infective: Documented Infection, Documented Infection Site: Skin / Soft Tissue, Duration of Therapy: 7 days ibuprofen (IBU) tablet 800 mg Given 10/20/2018 8:42 PM CDT 800 mg 800 mg, Oral, ONCE, 1 dose, Tue10/20/18 at 2130, JOEL documented in this encounter
--- OUTSIDE RECORDS SUMMARY | 2018-10-30 23:08 | XMS REPORT ---
:1990 [facility] Address [address] [place] [address] Dr. Alicia [address] [place] [id number] Care Team Providers Name Role Phone Unavailable Unavailable Unavailable Problems This patient has no known problems. Allergies, Adverse Reactions, Alerts This patient has no known allergies or adverse reactions. Medications This patient has no known medications.
--- NOTE | 2018-10-30 23:37 | ER ---
Nurse's Notes [facility] Name: Vic Hernandez Age: 27 yrs Sex: Male : 1990 Arrival Date: 10/30/2018 Time: 23:09 Bed 19 Private MD: Diagnosis: Other stimulant abuse-methamphetamine abuse;Benzodiazepine abuse Presentation: 10/30 23:16 Presenting complaint: Patient states: States "my heart was feeling like it was beating ea out of my chest" pt reports symptoms started 5 hours ago. Reports he started feeling dizzy and started having tingling that radiated to his left arm. Pt reports he used xanax and meth today. Transition of care: patient was not received from another setting of care. Onset of symptoms was October 30, 2018. Risk Assessment: Do you want to hurt yourself or someone else? Patient reports no desire to harm self or others. Initial Sepsis Screen: Does the patient meet any 2 criteria? No. Patient's initial sepsis screen is negative. Does the patient have a suspected source of infection? No. Patient's initial sepsis screen is negative. Care prior to arrival: None. 23:16 Method Of Arrival: Ambulatory ea 23:16 Acuity: ARISTIDES 3 ea Triage Assessment: 23:21 General: Appears in no apparent distress. Behavior is appropriate for age. Pain: ea Complains of pain in chest. Cardiovascular: Patient's skin is warm and dry. Historical: - Allergies: 23:20 No Known Allergies; ea - Home Meds: 23:20 Metoprolol Tartrate Oral [Active]; hydroxyzine HCl 25 mg Oral tab 1 tab as needed for ea Anxiety [Active]; - PMHx: 23:20 Heart Arrythmia; Anxiety; ADD/ADHD; ea - PSHx: 23:20 None; ea - Immunization history:: Adult Immunizations up to date. - Social history:: Smoking status: Patient/guardian denies using tobacco, Patient uses alcohol, on a daily basis. street drugs, Methamphetamine (Meth). - Ebola Screening: : No symptoms or risks identified at this time. Screenin:19 Abuse screen: Denies threats or abuse. Nutritional screening: No deficits noted. ea Tuberculosis screening: No symptoms or risk factors identified. Fall Risk None identified. Assessment: 23:22 General: Appears in no apparent distress. Behavior is appropriate for age. Pain: ea Complains of pain in chest Pain does not radiate. report his left arm feels like it is tingling Pain began 5 hours ago. Neuro: Level of Consciousness is awake, alert, obeys commands, Oriented to person, place, time, situation. Cardiovascular: Patient's skin is warm and dry. Respiratory: Airway is patent Respiratory effort is even, unlabored, Respiratory pattern is regular, symmetrical. 10/31 00:06 Reassessment: Discharge instructions given to patient. Patient agree with the POC and ao to follow up with PCP. Patient refused to sign Discharge paper and states that he want to get lab work done. Richard Guallpa NP notified. Vital Signs: 10/30 23:18 BP 150 / 102; Pulse 81; Resp 20; Temp 97.9; Pulse Ox 100% ; Weight 77.11 kg; Height 5 ea ft. 6 in. (167.64 cm); Pain 9/10; 23:18 Body Mass Index 27.44 (77.11 kg, 167.64 cm) ea ED Course: 23:09 Patient arrived in ED. cf2 23:11 Cruz Ramesh RN is Primary Nurse. ao 23:13 Richard Guallpa NP is PHCP. pm1 23:13 Koko Alvares MD is Attending Physician. pm1 23:18 Triage completed. ea 23:20 Patient has correct armband on for positive identification. Bed in low position. Call ea light in reach. youth nutritional monitor on. Pulse ox on. NIBP on. 23:23 Arm band placed on right wrist. Patient placed in an exam room, on a stretcher, on ea pulse oximetry. 23:23 Patient maintains SpO2 saturation greater than 95% on room air. ea 23:29 EKG done, by ED staff. jd2 10/31 00:05 No provider procedures requiring assistance completed. Patient did not have IV access ao during this emergency room visit. Administered Medications: No medications were administered Outcome: 10/30 23:36 Discharge ordered by . pm1 10/31 00:06 Discharged to home ambulatory. ao Condition: stable Discharge instructions given to patient, Instructed on discharge instructions, follow up and referral plans. Demonstrated understanding of instructions, follow-up care, medications. 00:10 Patient left the ED. ao Signatures: Cruz Ramesh RN RN ao Marinas, Patrick, NP SAFETY AIDE pm1 Aruna Zimmerman jd2 Ankita Salmon, RN RN ea Sunni Mendez cf2
--- NOTE | 2018-10-30 23:37 | EDPHYS ---
Physician Documentation [facility] Name: Vic Hernandez Age: 27 yrs Sex: Male : 1990 Arrival Date: 10/30/2018 Time: 23:09 Bed 19 Private MD: ED Physician Koko Alvares HPI: 10/30 23:35 This 27 yrs old Male presents to ER via Ambulatory with complaints of Chest pm1 Pain. 23:35 The patient or guardian reports chest pain that is located primarily in the anterior pm1 chest wall, bilaterally. The pain does not radiate. Associated signs and symptoms: Pertinent negatives: abdominal pain, cough, dizziness, headache, nausea, shortness of breath, vomiting. The chest pain is described as aching. Modifying factors: the symptoms are aggravated by Drug abuse. Patient smoked meth and then started feeling anxious with chest pain so he took some Xanax in an attempt to calm down. The patient has experienced similar episodes in the past, multiple times, and the symptoms today are exactly the same, Drug abuse with chest pain. The patient has not recently seen a physician. Historical: - Allergies: 23:20 No Known Allergies; ea - Home Meds: 23:20 Metoprolol Tartrate Oral [Active]; hydroxyzine HCl 25 mg Oral tab 1 tab as needed for ea Anxiety [Active]; - PMHx: 23:20 Heart Arrythmia; Anxiety; ADD/ADHD; ea - PSHx: 23:20 None; ea - Immunization history:: Adult Immunizations up to date. - Social history:: Smoking status: Patient/guardian denies using tobacco, Patient uses alcohol, on a daily basis. street drugs, Methamphetamine (Meth). - Ebola Screening: : No symptoms or risks identified at this time. ROS: 23:35 Constitutional: Negative for fever, chills, and weight loss, Eyes: Negative for injury, pm1 pain, redness, and discharge, ENT: Negative for injury, pain, and discharge, Neck: Negative for injury, pain, and swelling. 23:35 Respiratory: Negative for shortness of breath, cough, wheezing, and pleuritic chest pain, Abdomen/GI: Negative for abdominal pain, nausea, vomiting, diarrhea, and constipation, Back: Negative for injury and pain, : Negative for injury, bleeding, discharge, and swelling, MS/Extremity: Negative for injury and deformity, Skin: Negative for injury, rash, and discoloration, Neuro: Negative for headache, weakness, numbness, tingling, and seizure. 23:35 Cardiovascular: Positive for chest pain, Negative for edema, palpitations. 23:35 Psych: Positive for anxiety, drug abuse. Exam: 23:35 Constitutional: This is a well developed, well nourished patient who is awake, alert, pm1 and in no acute distress. Head/Face: Normocephalic, atraumatic. Eyes: Pupils equal round and reactive to light, extra-ocular motions intact. Lids and lashes normal. Conjunctiva and sclera are non-icteric and not injected. Cornea within normal limits. Periorbital areas with no swelling, redness, or edema. ENT: Nares patent. No nasal discharge, no septal abnormalities noted. Tympanic membranes are normal and external auditory canals are clear. Oropharynx with no redness, swelling, or masses, exudates, or evidence of obstruction, uvula midline. Mucous membranes moist. Neck: Trachea midline, no thyromegaly or masses palpated, and no cervical lymphadenopathy. Supple, full range of motion without nuchal rigidity, or vertebral point tenderness. No Meningismus. Chest/axilla: Normal chest wall appearance and motion. Nontender with no deformity. No lesions are appreciated. Cardiovascular: Regular rate and rhythm with a normal S1 and S2. No gallops, murmurs, or rubs. Normal PMI, no JVD. No pulse deficits. Respiratory: Lungs have equal breath sounds bilaterally, clear to auscultation and percussion. No rales, rhonchi or wheezes noted. No increased work of breathing, no retractions or nasal flaring. Abdomen/GI: Soft, non-tender, with normal bowel sounds. No distension or tympany. No guarding or rebound. No evidence of tenderness throughout. Back: No spinal tenderness. No costovertebral tenderness. Full range of motion. Skin: Warm, dry with normal turgor. Normal color with no rashes, no lesions, and no evidence of cellulitis. MS/ Extremity: Pulses equal, no cyanosis. Neurovascular intact. Full, normal range of motion. 23:35 Neuro: Orientation: is normal, Mentation: is normal, Motor: is normal, moves all fours, Sensation: is normal, no obvious gross deficits. 23:35 Psych: Behavior/mood is anxious, Affect is animated, Oriented to person, place, time. Vital Signs: 23:18 BP 150 / 102; Pulse 81; Resp 20; Temp 97.9; Pulse Ox 100% ; Weight 77.11 kg; Height 5 ea ft. 6 in. (167.64 cm); Pain 9/10; 23:18 Body Mass Index 27.44 (77.11 kg, 167.64 cm) ea MDM: 23:13 Patient medically screened. pm1 23:35 Data reviewed: vital signs. Data interpreted: Pulse oximetry: on room air is 100 %. pm1 Interpretation: normal. Counseling: I had a detailed discussion with the patient and/or guardian regarding: the historical points, exam findings, and any diagnostic results supporting the discharge/admit diagnosis, the need for outpatient follow up, to return to the emergency department if symptoms worsen or persist or if there are any questions or concerns that arise at home. 10/30 23:18 Order name: EKG; Complete Time: 23:19 pm1 10/30 23:18 Order name: EKG - Nurse/Tech; Complete Time: 23:29 pm1 EC:20 Rate is 91 beats/min. Rhythm is regular. No Q waves. T waves are Normal. No ST changes pm1 noted. Clinical impression: Normal ECG. Administered Medications: No medications were administered Disposition: 10/31 06:26 Co-signature as Attending Physician, Koko Alvares MD I agree with the assessment and tw4 plan of care. Disposition: 10/30/18 23:36 Discharged to Home. Impression: Other stimulant abuse - methamphetamine abuse, Benzodiazepine abuse. - Condition is Stable. - Discharge Instructions: Finding Treatment for Addiction, Nonspecific Chest Pain, Stimulant Use Disorder-Methamphetamines. - Medication Reconciliation Form, Thank You Letter, Antibiotic Education, Prescription Opioid Use form. - Follow up: Emergency Department; When: As needed; Reason: Worsening of condition. Follow up: Private Physician; When: 2 - 3 days; Reason: Recheck today's complaints, Continuance of care, Re-evaluation by your physician. - Problem is new. - Symptoms have improved. Signatures: Cruz Ramesh RN Richard Jose, CONTINUOUS MINING MACHINE LODE MINER CONTINUOUS MINING MACHINE LODE MINER pm1 Ankita Salmon RN RN ea Wadley, Terrence, MD MD tw4 Corrections: (The following items were deleted from the chart) 00:10 10/30 23:36 10/30/2018 23:36 Discharged to Home. Impression: Other stimulant abuse - ao methamphetamine abuse; Benzodiazepine abuse. Condition is Stable. Discharge Instructions: Finding Treatment for Addiction, Stimulant Use Disorder-Methamphetamines, Nonspecific Chest Pain. Forms are Medication Reconciliation Form, Thank You Letter, Antibiotic Education, Prescription Opioid Use. Follow up: Emergency Department; When: As needed; Reason: Worsening of condition. Follow up: Private Physician; When: 2 - 3 days; Reason: Recheck today's complaints, Continuance of care, Re-evaluation by your physician. Problem is new. Symptoms have improved. pm1
[2018-10-31 01:01] VITALS: BP 150/102; TEMP 97.9; O2SAT 100
--- NOTE | 2018-10-31 10:37 | EKG ---
Test Date: 2018-10-30 Test Time: 23:15:52 Solid Waste Disposal Manager: RENETTA MEASUREMENT RESULTS: Intervals: Rate: 91 [place]: 186 QRSD: 100 QT: 372 QTc: 457 [place]: P: 47 NJ: 186 QRS: 15 T: 34 INTERPRETIVE STATEMENTS: Normal sinus rhythm Normal ECG Compared to ECG 09/07/2018 14:43:47 Left ventricular hypertrophy no longer present Electronically Signed On 10-31-18 10:36:31 CDT by Keyur Keane
== END 2018-10-31 00:10 | disposition home or self-care (01) ==
LOC: ER 23:06
DX: T43.621S Poisoning by amphetamines, accidental (unintentional), sequela (principal); T42.4X1S Poisoning by benzodiazepines, accidental (unintentional), sequela; F41.9 Anxiety disorder, unspecified
CPT/HCPCS: 93005; 99284

== ENCOUNTER 2018-10-31 01:11 | Emergency (ER) | payer SELFPAY ==
--- OUTSIDE RECORDS SUMMARY | 2018-10-31 01:14 | XMS REPORT ---
:1990 [facility] Address [address] [place] [address] Dr. Alicia [address] [place] [id number] Care Team Providers Name Role Phone Unavailable Unavailable Unavailable Problems This patient has no known problems. Allergies, Adverse Reactions, Alerts This patient has no known allergies or adverse reactions. Medications This patient has no known medications.
--- NOTE | 2018-10-31 01:48 | EDPHYS ---
Physician Documentation [facility] Name: Vic Hernandez Age: 27 yrs Sex: Male : 1990 Arrival Date: 10/31/2018 Time: 01:15 Bed 20 Private MD: ED Physician Koko Alvares HPI: 10/31 01:43 This 27 yrs old Male presents to ER via EMS with complaints of Chest pain, pm1 Palpitations. 01:43 The patient presents with a history of heart racing. Context: The symptoms occur due to pm1 drug use - methamphetamine - smoked and ate it. Onset: The symptoms/episode began/occurred yesterday. Duration: The patient or guardian reports a single episode, that is still ongoing. Modifying factors: The symptoms are aggravated by substance abuse amphetamines, The symptoms are alleviated by nothing. Associated signs and symptoms: Pertinent positives: anxiety, chest pain, SOB, Pertinent negatives: cough, fever, nausea, vomiting. Severity of symptoms: in the emergency department the symptoms are unchanged. The patient has experienced similar episodes in the past, multiple times. The patient has been recently seen at the [facility] Emergency Department, just prior to arrival, by me, for similar complaints normal EKG. Historical: - Allergies: 01:22 No Known Allergies; ea - Home Meds: 01:22 None [Active]; ea - PMHx: 01:22 Heart Arrythmia; Anxiety; ADD/ADHD; ea - PSHx: 01:22 None; ea - Immunization history:: Adult Immunizations up to date. - Social history:: Smoking status: Patient/guardian denies using tobacco, Patient uses alcohol, on a daily basis. street drugs, Methamphetamine (Meth). - Ebola Screening: : No symptoms or risks identified at this time. ROS: 01:43 Constitutional: Negative for fever, chills, and weight loss, Eyes: Negative for injury, pm1 pain, redness, and discharge, ENT: Negative for injury, pain, and discharge, Neck: Negative for injury, pain, and swelling. 01:43 Abdomen/GI: Negative for abdominal pain, nausea, vomiting, diarrhea, and constipation, Back: Negative for injury and pain, : Negative for injury, bleeding, discharge, and swelling, MS/Extremity: Negative for injury and deformity, Skin: Negative for injury, rash, and discoloration, Neuro: Negative for headache, weakness, numbness, tingling, and seizure. 01:43 Cardiovascular: Positive for chest pain, palpitations, Negative for edema. 01:43 Respiratory: Positive for shortness of breath, Negative for cough, sputum production, wheezing. Exam: 01:43 Constitutional: This is a well developed, well nourished patient who is awake, alert, pm1 and in no acute distress. Head/Face: Normocephalic, atraumatic. Eyes: Pupils equal round and reactive to light, extra-ocular motions intact. Lids and lashes normal. Conjunctiva and sclera are non-icteric and not injected. Cornea within normal limits. Periorbital areas with no swelling, redness, or edema. ENT: Nares patent. No nasal discharge, no septal abnormalities noted. Tympanic membranes are normal and external auditory canals are clear. Oropharynx with no redness, swelling, or masses, exudates, or evidence of obstruction, uvula midline. Mucous membranes moist. Neck: Trachea midline, no thyromegaly or masses palpated, and no cervical lymphadenopathy. Supple, full range of motion without nuchal rigidity, or vertebral point tenderness. No Meningismus. Chest/axilla: Normal chest wall appearance and motion. Nontender with no deformity. No lesions are appreciated. Cardiovascular: Regular rate and rhythm with a normal S1 and S2. No gallops, murmurs, or rubs. Normal PMI, no JVD. No pulse deficits. Respiratory: Lungs have equal breath sounds bilaterally, clear to auscultation and percussion. No rales, rhonchi or wheezes noted. No increased work of breathing, no retractions or nasal flaring. Abdomen/GI: Soft, non-tender, with normal bowel sounds. No distension or tympany. No guarding or rebound. No evidence of tenderness throughout. Back: No spinal tenderness. No costovertebral tenderness. Full range of motion. Skin: Warm, dry with normal turgor. Normal color with no rashes, no lesions, and no evidence of cellulitis. MS/ Extremity: Pulses equal, no cyanosis. Neurovascular intact. Full, normal range of motion. 01:43 Neuro: Orientation: is normal, Motor: is normal, moves all fours. 01:43 Psych: Behavior/mood is anxious, Affect is animated, Oriented to person, place, time. Vital Signs: 01:20 BP 154 / 107; Pulse 97; Resp 18; Temp 97.6; Pulse Ox 100% on R/A; ea 02:07 BP 148 / 96; Pulse 92; Resp 19; Temp 97.8(O); Pulse Ox 100% ; ea MDM: 01:20 Patient medically screened. pm1 01:43 Data reviewed: vital signs. Data interpreted: Pulse oximetry: on room air is 100 %. pm1 Interpretation: normal. Counseling: I had a detailed discussion with the patient and/or guardian regarding: the historical points, exam findings, and any diagnostic results supporting the discharge/admit diagnosis, the need for outpatient follow up, to return to the emergency department if symptoms worsen or persist or if there are any questions or concerns that arise at home. Administered Medications: No medications were administered Disposition: 06:26 Co-signature as Attending Physician, Koko Alvares MD I agree with the assessment and tw4 plan of care. Disposition: 10/31/18 01:47 Discharged to Home. Impression: Other stimulant abuse - Methamphetamine, Benzodiazepine abuse. - Condition is Stable. - Discharge Instructions: Substance Use Disorder, Stimulant Use Disorder-Methamphetamines. - Medication Reconciliation Form, Thank You Letter, Antibiotic Education, Prescription Opioid Use form. - Follow up: Emergency Department; When: As needed; Reason: Worsening of condition. Follow up: Private Physician; When: 2 - 3 days; Reason: Recheck today's complaints, Continuance of care, Re-evaluation by your physician. - Problem is new. - Symptoms have improved. Signatures: Richard Guallpa, KAROL MEDICAL INTERPRETER pm1 Ankita Salmon RN RN ea Wadley, Terrence, MD MD tw4 Corrections: (The following items were deleted from the chart) 02:08 01:47 10/31/2018 01:47 Discharged to Home. Impression: Other stimulant abuse - ea Methamphetamine; Benzodiazepine abuse. Condition is Stable. Discharge Instructions: Stimulant Use Disorder-Methamphetamines. Forms are Medication Reconciliation Form, Thank You Letter, Antibiotic Education, Prescription Opioid Use. Follow up: Emergency Department; When: As needed; Reason: Worsening of condition. Follow up: Private Physician; When: 2 - 3 days; Reason: Recheck today's complaints, Continuance of care, Re-evaluation by your physician. Problem is new. Symptoms have improved. pm1
--- NOTE | 2018-10-31 01:48 | ER ---
Nurse's Notes [facility] Name: Vic Hernandez Age: 27 yrs Sex: Male : 1990 Arrival Date: 10/31/2018 Time: 01:15 Bed 20 Private MD: Diagnosis: Other stimulant abuse-Methamphetamine;Benzodiazepine abuse Presentation: 10/31 01:15 Presenting complaint: EMS states: Pt called EMS reported his heart was beating fast and ea he is feeling short of breath. EMS reports pt was at the ED a few hours ago. Pt admitted to doing meth yesterday. Transition of care: patient was not received from another setting of care. Onset of symptoms was October 31, 2018. Risk Assessment: Do you want to hurt yourself or someone else? Patient reports no desire to harm self or others. Initial Sepsis Screen: Does the patient meet any 2 criteria? No. Patient's initial sepsis screen is negative. Does the patient have a suspected source of infection? No. Patient's initial sepsis screen is negative. Care prior to arrival: 12 lead. 01:15 Method Of Arrival: EMS: [facility] ea 01:15 Acuity: ARIST[place] 4 ea Triage Assessment: 01:20 General: Appears in no apparent distress. Behavior is calm, cooperative, appropriate ea for age. Pain: Complains of pain in chest. Historical: - Allergies: 01:22 No Known Allergies; ea - Home Meds: 01:22 None [Active]; ea - PMHx: 01:22 Heart Arrythmia; Anxiety; ADD/ADHD; ea - PSHx: 01:22 None; ea - Immunization history:: Adult Immunizations up to date. - Social history:: Smoking status: Patient/guardian denies using tobacco, Patient uses alcohol, on a daily basis. street drugs, Methamphetamine (Meth). - Ebola Screening: : No symptoms or risks identified at this time. Screenin:19 Abuse screen: Denies threats or abuse. Nutritional screening: No deficits noted. ea Tuberculosis screening: No symptoms or risk factors identified. Fall Risk None identified. Assessment: 01:20 General: Appears in no apparent distress. Behavior is cooperative. Pain: Complains of ea pain in chest. Neuro: Level of Consciousness is awake, alert, obeys commands, Oriented to person, place, time, situation. Cardiovascular: Patient's skin is warm and dry. Respiratory: Airway is patent Respiratory effort is even, unlabored, Respiratory pattern is regular, symmetrical. Derm: Skin is pink, warm \T\ dry. Musculoskeletal: Circulation, motion, and sensation intact. Vital Signs: 01:20 BP 154 / 107; Pulse 97; Resp 18; Temp 97.6; Pulse Ox 100% on R/A; ea 02:07 BP 148 / 96; Pulse 92; Resp 19; Temp 97.8(O); Pulse Ox 100% ; ea ED Course: 01:15 Patient arrived in ED. ea 01:16 Richard Guallpa NP is PHCP. pm1 01:16 Koko Alvares MD is Attending Physician. pm1 01:19 Triage completed. ea 01:19 Arm band placed on right wrist. Patient placed in an exam room, on a stretcher, on ea pulse oximetry. 01:20 Patient has correct armband on for positive identification. Bed in low position. Call ea light in reach. Side rails up X2. 02:06 No provider procedures requiring assistance completed. Patient did not have IV access ea during this emergency room visit. Administered Medications: No medications were administered Outcome: 01:47 Discharge ordered by . pm1 02:06 Discharged to home ambulatory. ea 02:06 Condition: stable 02:06 Discharge instructions given to patient, Instructed on discharge instructions, follow up and referral plans. Demonstrated understanding of instructions, follow-up care. 02:08 Patient left the ED. ea Signatures: Richard Guallpa NP SOUND DESIGNER pm1 Ankita Salmon RN RN ea
[2018-10-31 02:15] VITALS: O2SAT 100
[2018-10-31 02:17] VITALS: BP 148/96; TEMP 97.8
== END 2018-10-31 02:08 | disposition home or self-care (01) ==
LOC: ER 01:11
DX: T43.621S Poisoning by amphetamines, accidental (unintentional), sequela (principal); T42.4X1S Poisoning by benzodiazepines, accidental (unintentional), sequela; R00.2 Palpitations
CPT/HCPCS: 99283

== ENCOUNTER 2018-11-09 13:49 | Emergency (ER) | payer SELFPAY ==
--- OUTSIDE RECORDS SUMMARY | 2018-11-09 13:51 | XMS REPORT ---
:1990 [facility] Address [address] [place] [address] Dr. Alicia [address] [place] [id number] Care Team Providers Name Role Phone Unavailable Unavailable Unavailable Problems This patient has no known problems. Allergies, Adverse Reactions, Alerts This patient has no known allergies or adverse reactions. Medications This patient has no known medications.
[2018-11-09 14:40] LABS: Absolute Lymphocytes (CBC) 2.6 K/uL (0.7-4.9); Basophils % 0.7 % (0-1.3); Hematocrit 44.3 % (39.6-49.0); Lymphocytes % 26.4 % (15.3-44.8); RBC Red Blood Cell Count 5.03 M/uL (4.33-5.43)
[2018-11-09 14:52] LABS: Potassium 3.3 mmol/L (3.5-5.1)
--- NOTE | 2018-11-09 14:58 | RAD REPORT ---
EXAM DESCRIPTION: RAD - Chest Single View - 11/09/2018 2:38 pm CLINICAL HISTORY: Shortness of breath, palpitations COMPARISON: September 07 TECHNIQUE: AP portable chest image was obtained 1421 hours . FINDINGS: Lungs are clear. Heart size is upper normal to slightly enlarged. This is similar to jack rison. No acute vascular engorgement. No measurable pleural effusion and no pneumothorax. No acute anupam ny abnormality seen. No acute aortic findings suspected. IMPRESSION: No acute lung parenchymal process. Heart size upper normal to slightly enlarged. No failure or volume overload findings.
[2018-11-09 15:07] LABS: Barbiturates NEGATIVE (NEGATIVE); Benzodiazepines NEGATIVE (NEGATIVE); Cocaine NEGATIVE (NEGATIVE); METHAMPHETAM POSITIVE (NEGATIVE); Methadone NEGATIVE (NEGATIVE); Opiates NEGATIVE (NEGATIVE); Phencyclidine NEGATIVE (NEGATIVE); THC Cannibis NEGATIVE (NEGATIVE)
[2018-11-09] MEDS ORDERED: NA CHLORIDE 0.9% 1,000 ML ONE (15:08)
[2018-11-09 15:09] LABS: Urine Blood NEGATIVE (NEG); Urine Glucose NEGATIVE (NEG); Urine Protein NEGATIVE (NEG); Urine Specific Gravity <1.005 (1.005-1.030); Urine pH 6.5 (5.0-7.0)
--- NOTE | 2018-11-09 15:37 | ER ---
Nurse's Notes [facility] Name: Vic Hernandez Age: 27 yrs Sex: Male : 1990 Arrival Date: 11/09/2018 Time: 13:53 Bed 16 Private MD: Diagnosis: Palpitations;Drug Abuse Presentation: 11/09 14:00 Presenting complaint: Patient states: He has been using meth for the past 2 days, today aj1 he started having dizziness and palpitations. Denies shortness of breath, denies pain. Transition of care: patient was not received from another setting of care. Onset of symptoms was November 09, 2018. Risk Assessment: Do you want to hurt yourself or someone else? Patient reports no desire to harm self or others. Initial Sepsis Screen: Does the patient meet any 2 criteria? HR > 90 bpm. No. Patient's initial sepsis screen is negative. Does the patient have a suspected source of infection? No. Patient's initial sepsis screen is negative. Care prior to arrival: None. 14:00 Method Of Arrival: EMS: [facility] aj1 14:00 Acuity: ARISTIDES 3 aj1 Triage Assessment: 14:02 General: Appears in no apparent distress. comfortable, Behavior is calm, cooperative, aj1 appropriate for age. Pain: Denies pain. Historical: - Allergies: 14:02 No Known Allergies; aj1 - Home Meds: 14:02 losartan oral oral [Active]; aj1 - PMHx: 14:02 ADD/ADHD; Anxiety; Heart Arrythmia; Hypertension; aj1 - Immunization history:: Flu vaccine is not up to date. - Social history:: Smoking status: Patient uses tobacco products, denies chronic smoking, but will smoke occasionally, Patient uses alcohol, [address], Methamphetamine (Meth). - Ebola Screening: : Patient denies travel to an Ebola-affected area in the 21 days before illness onset. Screenin:04 Abuse screen: Denies threats or abuse. Denies injuries from another. Nutritional aj1 screening: No deficits noted. Tuberculosis screening: No symptoms or risk factors identified. 15:52 Fall Risk None identified. aj1 Assessment: 14:04 General: Appears in no apparent distress. comfortable, Behavior is calm, cooperative, aj1 appropriate for age. Pain: Denies pain. Neuro: Level of Consciousness is awake, alert, obeys commands, Oriented to person, place, time, situation. Cardiovascular: Reports palpitations, Denies chest pain, shortness of breath, Heart tones S1 S2 present Patient's skin is warm and dry. Rhythm is sinus tachycardia. Respiratory: Airway is patent Respiratory effort is even, unlabored, Respiratory pattern is regular, symmetrical, Breath sounds are clear bilaterally. GI: No signs and/or symptoms were reported involving the gastrointestinal system. Abdomen is flat, non-distended. : No signs and/or symptoms were reported regarding the genitourinary system. EENT: No signs and/or symptoms were reported regarding the EENT system. Derm: No signs and/or symptoms reported regarding the dermatologic system. Skin is pink, warm \T\ dry. normal. Musculoskeletal: No signs and/or symptoms reported regarding the musculoskeletal system. Circulation, motion, and sensation intact. 15:05 Reassessment: Patient appears in no apparent distress at this time. No changes from aj1 previously documented assessment. Patient and/or family updated on plan of care and expected duration. Pain level reassessed. Patient is alert, oriented x 3, equal unlabored respirations, skin warm/dry/pink. Vital Signs: 14:02 BP 133 / 96; Pulse 101; Resp 22; Temp 99.2; Pulse Ox 100% on R/A; Weight 77.11 kg (R); aj1 Height 5 ft. 6 in. (167.64 cm) (R); Pain 0/10; 14:02 Body Mass Index 27.44 (77.11 kg, 167.64 cm) aj1 ED Course: 13:53 Patient arrived in ED. aj1 13:54 Nawaf Wilson PA is PHCP. jr8 13:54 Jaylen Hay MD is Attending Physician. jr8 13:58 Jes Mauricio, RICKY is Primary Nurse. aj1 14:01 Triage completed. aj1 14:02 Arm band placed on. aj1 14:04 Patient has correct armband on for positive identification. shelter monitor on. Pulse aj1 ox on. NIBP on. 14:04 No provider procedures requiring assistance completed. aj1 14:30 Inserted saline lock: 20 gauge in right antecubital area, using aseptic technique. aj1 Blood collected. 14:47 EKG done, by mammography technician. reviewed by Nawaf RAM. at1 14:53 Bed in low position. Verbal reassurance given. mb4 15:52 IV discontinued, intact, bleeding controlled, No redness/swelling at site. Pressure aj1 dressing applied. Administered Medications: 15:12 Drug: NS 0.9% 1000 ml Route: IV; Rate: 1 bolus; Site: left forearm; aj1 15:50 Follow up: IV Status: Completed infusion; IV Intake: 1000ml aj1 15:50 Drug: Potassium Chloride 20 mEq Route: PO; aj1 15:51 Follow up: Response: No adverse reaction aj1 Intake: 15:50 IV: 1000ml; Total: 1000ml. aj1 Outcome: 15:35 Discharge ordered by . jr8 15:52 Discharged to home ambulatory. aj1 15:52 Condition: good 15:52 Discharge instructions given to patient, Instructed on discharge instructions, follow up and referral plans. Demonstrated understanding of instructions, follow-up care. 15:53 Patient left the ED. aj1 Signatures: Jes Mauricio RN RN aj1 Nawaf Wilson PA PA jr8 Narda More, cathode maker EKG Tat1 Aubrie Samaniego mb4
--- NOTE | 2018-11-09 15:38 | EDPHYS ---
Physician Documentation [facility] Name: Vic Hernandez Age: 27 yrs Sex: Male : 1990 Arrival Date: 11/09/2018 Time: 13:53 Bed 16 Private MD: ED Physician Jaylen Hay HPI: 11/09 14:04 This 27 yrs old Male presents to ER via EMS with complaints of palpitations. jr8 14:04 The patient presents with a history of irregular heart beat. Context: The symptoms jr8 occur after using meth. Onset: The symptoms/episode began/occurred this morning. The patient has not experienced similar symptoms in the past. I used meth this morning and when I was coming down I started having palpitations and it felt like my heart was going to stop so I wanted to get checked out. Pt denies chest pain at this time. . Historical: - Allergies: 14:02 No Known Allergies; aj1 - Home Meds: 14:02 losartan oral oral [Active]; aj1 - PMHx: 14:02 ADD/ADHD; Anxiety; Heart Arrythmia; Hypertension; aj1 - Immunization history:: Flu vaccine is not up to date. - Social history:: Smoking status: Patient uses tobacco products, denies chronic smoking, but will smoke occasionally, Patient uses alcohol, [address], Methamphetamine (Meth). - Ebola Screening: : Patient denies travel to an Ebola-affected area in the 21 days before illness onset. ROS: 14:04 Constitutional: Negative for fever, chills, and weight loss, Eyes: Negative for injury, jr8 pain, redness, and discharge, ENT: Negative for injury, pain, and discharge, Neck: Negative for injury, pain, and swelling, Cardiovascular: Negative for chest pain, palpitations, and edema, Respiratory: Negative for shortness of breath, cough, wheezing, and pleuritic chest pain, Abdomen/GI: Negative for abdominal pain, nausea, vomiting, diarrhea, and constipation, Back: Negative for injury and pain, MS/Extremity: Negative for injury and deformity, Skin: Negative for injury, rash, and discoloration, Neuro: Negative for headache, weakness, numbness, tingling, and seizure. Exam: 14:04 Constitutional: This is a well developed, well nourished patient who is awake, alert, jr8 and in no acute distress. Head/Face: Normocephalic, atraumatic. Eyes: Pupils equal round and reactive to light, extra-ocular motions intact. Lids and lashes normal. Conjunctiva and sclera are non-icteric and not injected. Cornea within normal limits. Periorbital areas with no swelling, redness, or edema. ENT: Nares patent. No nasal discharge, no septal abnormalities noted. Tympanic membranes are normal and external auditory canals are clear. Oropharynx with no redness, swelling, or masses, exudates, or evidence of obstruction, uvula midline. Mucous membranes moist. Neck: Trachea midline, no thyromegaly or masses palpated, and no cervical lymphadenopathy. Supple, full range of motion without nuchal rigidity, or vertebral point tenderness. No Meningismus. Chest/axilla: Normal chest wall appearance and motion. Nontender with no deformity. No lesions are appreciated. Cardiovascular: Regular rate and rhythm with a normal S1 and S2. No gallops, murmurs, or rubs. Normal PMI, no JVD. No pulse deficits. Respiratory: Lungs have equal breath sounds bilaterally, clear to auscultation and percussion. No rales, rhonchi or wheezes noted. No increased work of breathing, no retractions or nasal flaring. Abdomen/GI: Soft, non-tender, with normal bowel sounds. No distension or tympany. No guarding or rebound. No evidence of tenderness throughout. Skin: Warm, dry with normal turgor. Normal color with no rashes, no lesions, and no evidence of cellulitis. MS/ Extremity: Pulses equal, no cyanosis. Neurovascular intact. Full, normal range of motion. Neuro: Awake and alert, GCS 15, oriented to person, place, time, and situation. Cranial nerves II-XII grossly intact. Motor strength 5/5 in all extremities. Sensory grossly intact. Cerebellar exam normal. Normal gait. Vital Signs: 14:02 BP 133 / 96; Pulse 101; Resp 22; Temp 99.2; Pulse Ox 100% on R/A; Weight 77.11 kg (R); aj1 Height 5 ft. 6 in. (167.64 cm) (R); Pain 0/10; 14:02 Body Mass Index 27.44 (77.11 kg, 167.64 cm) aj1 MDM: 13:54 Patient medically screened. 8 15:31 Data reviewed: vital signs, nurses notes, lab test result(s), EKG, radiologic studies, [facility] and as a result, I will discharge patient. Data interpreted: Pulse oximetry: on room air is 99 %. Interpretation: normal. Counseling: I had a detailed discussion with the patient and/or guardian regarding: the historical points, exam findings, and any diagnostic results supporting the discharge/admit diagnosis, the presence of at least one elevated blood pressure reading (>120/80) during this emergency department visit, lab results, radiology results, the need for outpatient follow up, to return to the emergency department if symptoms worsen or persist or if there are any questions or concerns that arise at home. ED course: EKG, CXR, labs WNL, pt denies symptoms during ED stay, discussed need to stop using meth and decrease ETOH consumption, strict return precautions given.. 11/09 14:03 Order name: CBC with Diff [facility] 11/09 14:03 Order name: BMP [facility] 11/09 14:03 Order name: UDS [facility] 11/09 14:40 Order name: Urine Dipstick--Ancillary (enter results) 11/09 14:55 Order name: Basic Metabolic Panel; Complete Time: 14:57 EDFL 11/09 15:08 Order name: Urine Drug Screen; Complete Time: 15:12 EDFL 11/09 14:03 Order name: EKG - Nurse/Tech; Complete Time: 14:43 [facility] 11/09 14:03 Order name: Chest Single View XRAY [facility] 11/09 15:11 Order name: Urine Dipstick-Ancillary; Complete Time: 15:12 EDFL 11/09 15:13 Order name: CBC with Automated Diff; Complete Time: 15:21 EDMS Administered Medications: 15:12 Drug: NS 0.9% 1000 ml Route: IV; Rate: 1 bolus; Site: left forearm; aj1 15:50 Follow up: IV Status: Completed infusion; IV Intake: 1000ml aj1 15:50 Drug: Potassium Chloride 20 mEq Route: PO; aj1 15:51 Follow up: Response: No adverse reaction aj1 Disposition: 11/10 07:57 Co-signature as Attending Physician, Jaylen Hay MD I agree with the assessment and kdr plan of care. Disposition: 11/09/18 15:35 Discharged to Home. Impression: Palpitations, Drug Abuse. - Condition is Stable. - Discharge Instructions: Palpitations, Stimulant Use Disorder-Methamphetamines. - Medication Reconciliation Form, Thank You Letter form. - Follow up: Private Physician; When: 2 - 3 days; Reason: Recheck today's complaints, Re-evaluation by your physician. Follow up: Emergency Department; When: As needed; Reason: Worsening of condition. - Problem is new. - Symptoms are resolved. Signatures: Dispatcher [employer] EDJes Hillman RN RN aj1 Jaylen Hay MD MD kdr Nawaf Wilson PA PA jr8 Corrections: (The following items were deleted from the chart) 11/09 15:37 15:35 11/09/2018 15:35 Discharged to Home. Impression: Palpitations. Condition is jr8 Stable. Forms are Medication Reconciliation Form, Thank You Letter, Antibiotic Education, Prescription Opioid Use. Follow up: Private Physician; When: 2 - 3 days; Reason: Recheck today's complaints, Re-evaluation by your physician. Follow up: Emergency Department; When: As needed; Reason: Worsening of condition. Problem is new. Symptoms are resolved. jr8 15:53 15:37 11/09/2018 15:35 Discharged to Home. Impression: Palpitations; Drug Abuse. aj1 Condition is Stable. Discharge Instructions: Palpitations, Stimulant Use Disorder-Methamphetamines. Forms are Medication Reconciliation Form, Thank You Letter. Follow up: Private Physician; When: 2 - 3 days; Reason: Recheck today's complaints, Re-evaluation by your physician. Follow up: Emergency Department; When: As needed; Reason: Worsening of condition. Problem is new. Symptoms are resolved. jr8
[2018-11-09] MEDS ORDERED: POTASSIUM CL SA 10 MEQ TAB PO ONE (15:42)
[2018-11-09 17:14] VITALS: BP 133/96; TEMP 99.2; O2SAT 100
--- NOTE | 2018-11-10 10:34 | EKG ---
Test Date: 2018-11-09 Test Time: 14:34:49 Bakery Helper: JAYME MEASUREMENT RESULTS: Intervals: Rate: 88 NJ: 196 QRSD: 98 QT: 358 QTc: 433 [place]: P: 45 NJ: 196 QRS: 40 T: 9 INTERPRETIVE STATEMENTS: Normal sinus rhythm T wave abnormality, consider inferior ischemia Abnormal ECG Compared to ECG 10/30/2018 23:15:52 T-wave abnormality now present Possible ischemia now present Electronically Signed On 11-10-18 10:31:41 CDT by Keyur Keane
== END 2018-11-09 15:53 | disposition home or self-care (01) ==
LOC: ER 13:49
DX: R00.2 Palpitations (principal); F15.10 Other stimulant abuse, uncomplicated; I10 Essential (primary) hypertension
CPT/HCPCS: 36415; 71045; 80048; 80307; 81003; 85025; 93005; 96360; 99284; J7030

== ENCOUNTER 2019-04-19 00:55 | Observation (INO) | payer SELFPAY ==
--- OUTSIDE RECORDS SUMMARY | 2019-04-19 01:27 | XMS REPORT ---
:1990 [facility] Address [address] [place] [address] Dr. Alicia [address] [place] [id number] Care Team Providers Name Role Phone Unavailable Unavailable Unavailable Problems This patient has no known problems. Allergies, Adverse Reactions, Alerts This patient has no known allergies or adverse reactions. Medications This patient has no known medications.
[2019-04-19 02:08] VITALS: BMI 27.7
[2019-04-19] MEDS ORDERED: ACETAMINOPHEN 500 MG TAB PO PRN (03:13)
[2019-04-19] MEDS ORDERED: ALPRAZOLAM 0.25 MG TABLET PO PRN (03:13)
[2019-04-19] MEDS ORDERED: MORPHINE 4 MG/ML SYR IV PRN (03:13)
[2019-04-19 07:23] LABS: Barbiturates NEGATIVE (NEGATIVE); Benzodiazepines NEGATIVE (NEGATIVE); Cocaine NEGATIVE (NEGATIVE); METHAMPHETAM NEGATIVE (NEGATIVE); Methadone NEGATIVE (NEGATIVE); Opiates NEGATIVE (NEGATIVE); Phencyclidine NEGATIVE (NEGATIVE); THC Cannibis NEGATIVE (NEGATIVE)
[2019-04-19] MEDS ORDERED: ENOXAPARIN 40 MG/0.4 ML SQ SCH (09:00)
[2019-04-19] MEDS ORDERED: FOLIC ACID 1 MG TABLET PO SCH (09:00)
[2019-04-19] MEDS ORDERED: THIAMINE HCL 100 MG TABLET PO SCH (09:00)
[2019-04-19] MEDS ORDERED: lisinopriL 10 MG TAB PO SCH (09:00)
[2019-04-19] MEDS ORDERED: ASPIRIN EC 81 MG TAB PO SCH (09:00)
[2019-04-19 09:42] VITALS: O2SAT 98
--- NOTE | 2019-04-19 11:30 | P.DS ---
Admission Date: 04/19/19 Discharge Date: 04/19/19 Primary Care Provider: none Disposition: ROUTINE DISCHARGE Discharge Condition: GOOD Reason for Admission: chest pain Consultations: Cardiology-Dr. Keane Procedures: Cardiac exercise stress test: No stress-induced ischemia noted. Echocardiogram: Unremarkable Medical problem list: Chest pain likely atypical Hypertension Alcohol abuse Brief History of Present Illness: 28-year-old male presented to outpatient ER-[place] for chest pain. Patient was a direct admit to further observe. Patient with history of hypertension and alcohol abuse. Hospital Course: Patient presented with chest pain. Cardiac enzymes unremarkable. Cardiac stress test performed. Cardiac stress test and echocardiogram unremarkable. No stress-induced ischemia noted. No further intervention required. Patient also with underlying hypertension. Lisinopril was started. Blood pressure better controlled. At discharge patient may continue with lisinopril 10 mg daily. Recommend to maintain blood pressures less 150/80. Further adjustment can be done by his PCP. Patient will follow up with a PCP to establish care and to follow up this hospitalization. Patient admits alcohol abuse. Alcohol cessation addressed in detail. Patient plans to quit. Will provide thiamine 100 mg daily. Vital Signs/Physical Exam: Temp Pulse Resp BP Pulse Ox 97.5 F 68 18 134/81 98 04/19/19 08:00 04/19/19 09:57 04/19/19 08:00 04/19/19 09:57 04/19/19 08:00 General: Alert, In no apparent distress, Oriented x3, Cooperative HEENT: Atraumatic Neck: Supple Respiratory: Clear to auscultation bilaterally, Normal air movement Cardiovascular: Normal pulses, Regular rate/rhythm Gastrointestinal: Normal bowel sounds, Soft and benign, Non-distended, No masses , No rebound, No guarding Neurological: Normal speech, Normal strength at 5/5 x4 extr, Normal tone, Normal affect Laboratory Data at Discharge: Troponin I < 0.02 ng/mL (0.0-0.045) 04/19/19 07:07 Triglycerides 160 mg/dL (<150) H 04/19/19 03:24 Cholesterol 137 mg/dL (<200) 04/19/19 03:24 HDL Cholesterol 36 mg/dL (40-60) L 04/19/19 03:24 Cholesterol/HDL Ratio 3.81 04/19/19 03:24 Home Medications: Thiamine HCl [Vitamin B-1*] 100 mg PO DAILY #90 tablet 04/19/19 lisinopriL [Prinivil*] 10 mg PO DAILY #30 tab 04/19/19 New Medications: lisinopriL [Prinivil*] 10 mg PO DAILY #30 tab Thiamine HCl [Vitamin B-1*] 100 mg PO DAILY #90 tablet Patient Discharge Instructions: Patient presented with chest pain. Cardiac enzymes unremarkable. Cardiac stress test performed. No further intervention required. Patient also with underlying hypertension. Lisinopril was started. Blood pressure better controlled. At discharge patient may continue with lisinopril 10 mg daily. Recommend to maintain blood pressures less 150/80. Further adjustment can be done by his PCP. Patient will follow up with a PCP to establish care and to follow up this hospitalization. Patient admits alcohol abuse. Alcohol cessation addressed in detail. Patient plans to quit. Will provide thiamine 100 mg daily. Diet: AHA Activity: Ad arabella Time spent managing pt's care (in minutes): 55
[2019-04-19 13:22] VITALS: BP 145/80; TEMP 98
--- NOTE | 2019-04-19 13:30 | ECHO ---
HEIGHT: 5 ft 6 in WEIGHT: 172 lb 0 oz DATE OF STUDY: 04/19/[address]: Yuni Amaya MD 2-DIMENSIONAL: YES M.MODE: YES DOPPLER: YES COLOR FLOW: YES TDS: NO PORTABLE: NO DEFINITY: NO BUBBLE STUDY: NO DIAGNOSIS: CHEST PAIN RULE OUT ACS CARDIAC HISTORY: CATHERIZATION: NO SURGERY: NO PROSTHETIC VALVE: NO PACEMAKER: NO MEASUREMENTS (cm) DIASTOLIC (NORMALS) SYSTOLIC (NORMALS) IVSd 1.0 (0.6-1.2) LA Diam 3.5 (1.9-4.0) LVEF 57% LVIDd 4.2 (3.5-5.7) LVIDs 2.9 (2.0-3.5) %FS 30% LVPWd 1.1 (0.6-1.2) Ao Diam 2.6 (2.0-3.7) 2 DIMENSIONAL ASSESSMENT: RIGHT ATRIUM: NORMAL LEFT ATRIUM: NORMAL RIGHT VENTRICLE: NORMAL LEFT VENTRICLE: NORMAL TRICUSPID VALVE: NORMAL MITRAL VALVE: NORMAL PULMONIC VALVE: NORMAL AORTIC VALVE: NORMAL PERICARDIAL EFFUSION: NONE AORTIC ROOT: NORMAL LEFT VENTRICULAR WALL MOTION: NORMAL DOPPLER/COLOR FLOW: NORMAL COMMENTS: NORMAL 2D ECHOCARDIOGRAM WITH DOPPLER. NO WALL MOTION ABNORMALITY. NO EFFUSION. TECHNOLOGIST: Yoan BOUDREAUX
--- NOTE | 2019-04-19 13:35 | TREADMILL ---
70% H.R.: 133 85% H.R.: 162 90% H.R.: 171 100% H.R.: 190 DX: CHEST PAIN Date of Study: 04/19/2019 Ht: 5 6 Wt: 172 lb 0 oz Consulting Physician: GAGAN MEDICATIONS: TYLENOL, ASPIRIN, LOVENOX, PRINIVIL. HISTORY: 28 YEAR OLD MALE WITH HYPERTENSION, ARRHYTHMIA, SMOKER OF ONE PACK DAILY, DAILYT DRINKER, METH AND COCAINE USE. PHYSICIAL EXAMINATION: RESTING B.P.: 134/88 RESTING H.R.: 61 RESTING EKG: NORMAL PROTOCOL: FABIOLA ROUTINE EXERCISE TIME: 5:11 MAXIMUM HEART RATE: 171 90 % OF PREDICTED B.P. AT PEAK STRESS: 164/86 H.R. AT 1 MINUTE POST EXERCISE: 139 IMPRESSION: ROUTINE TREADMILL, STOPPED DUE TO TARGET HEART RATE REACH. NO SUPRAVENTRICULAR TACHYCARDIA, VENTRICULAR TACHYCARDIA, PREMATURE ATRIAL COMPLEXES OR PREMATURE VENTRICULAR COMPLEXES NOTED. PATIENT REPORTED NO CHEST PAIN.
--- NOTE | 2019-04-20 01:15 | P.HP ---
Certification for Inpatient Patient admitted to: Observation With expected LOS: <2 Midnights Patient will require the following post-hospital care: None Practitioner: I am a practitioner with admitting privileges, knowledge of patient current condition, hospital course, and medical plan of care. Services: Services provided to patient in accordance with Admission requirements found in Title 42 Section 412.3 of the Code of Federal Regulations Patient History Date of Service: 04/19/19 Reason for admission: chest pain History of Present Illness: Patient is a 28-year-old gentleman who came to the hospital with chest discomfort. He actually was was at [facility] when he came into the emergency room for evaluation. In the emergency room he was found to have an arrhythmia in the emergency room. I spoke to the physician at the local emergency room for transfer to our facility. Because of concern regarding his arrhythmia which was new and he had never suffered from before I decided to admit him for observation. When he got here his initial troponins have been negative. We will go ahead and repeat EKG in the morning. I will get an echocardiogram and a treadmill stress test. If these are negative then he should be able to go home for outpatient follow-up. Patient does admit to polysubstance abuse. The last time he did in fact it means was 4 weeks ago. He did use cocaine 3 weeks ago. But since that time he has been exercising. He has cut down on his alcohol use to a couple of drinks daily. He wants to cut it completely. He is running regularly and he is hoping that he will be able to stop completely over the next week. Hopefully patient will be able does get away from polysubstance abuse as that will increase his risk of cardiac disease. Allergies No Known Allergies Allergy (Verified 04/19/19 03:22) Home Medications: Thiamine HCl [Vitamin B-1*] 100 mg PO DAILY #90 tablet 04/19/19 lisinopriL [Prinivil*] 10 mg PO DAILY #30 tab 04/19/19 - Past Medical/Surgical History Diabetic: No -: anxiety -: panic disorder -: drug/alcohol abuse -: smoker (quit early February) -: arrythmia - Family History Father Medical History: Heart disease, Hypertension, Diabetes Notes: cardiac arrest Mother Medical History: Liver disease Notes: cirrhosis. spinal stenosis - Social History Smoking Status: Former smoker Alcohol use: Yes CD- Drugs: Yes Caffeine use: No Place of Residence: Home Review of Systems 10-point ROS is otherwise unremarkable Physical Examination - Vital Signs Temperature: 98 F Blood Pressure: 145/80 Pulse: 89 Respirations: 18 Pulse Ox (%): 96 - Physical Exam General: Alert, In no apparent distress, Oriented x3 HEENT: Atraumatic, PERRLA, Mucous membr. moist/pink, EOMI, Sclerae nonicteric Neck: Supple, 2+ carotid pulse no bruit, No LAD, Without JVD or thyroid abnormality Respiratory: Clear to auscultation bilaterally, Normal air movement Cardiovascular: Regular rate/rhythm, Normal S1 S2, No murmurs Gastrointestinal: Normal bowel sounds, Soft and benign, Non-distended, No tenderness Musculoskeletal: No clubbing, No swelling, No tenderness Integumentary: No rashes Neurological: Normal gait, Normal speech, Normal strength at 5/5 x4 extr, Normal tone, Sensation intact, Cranial nerves 3-12 intact, Normal affect Lymphatics: No axilla or inguinal lymphadenopathy - Studies Laboratory Data (last 24 hrs) 04/19/19 07:07: Troponin I < 0.02 04/19/19 03:24: Triglycerides 160 H, Cholesterol 137, HDL Cholesterol 36 L, Cholesterol/HDL Ratio 3.81 04/19/19 03:24: Troponin I < 0.02 Assessment & Plan - Problems (Diagnosis) (1) Chest pain, rule out acute myocardial infarction Status: Acute - Plan 1. Serial troponins and EKG 2. Cardiology consultation 3. Echocardiogram and inpatient Treadmill stress test(pending cardiology evaluation) 4. Anti-platelet therapy, anti coagulation, beta-eleuterio, statin, and O2 as needed 5. IV morphine for pain 6. Nitro p.r.n. 7. Patient has been counseled regarding polysubstance abuse. I spent about 30 minutes talking to him regarding this and he told me his game plan on quitting. Hopefully patient will be able to continue with his exercise regimen and quit using alcohol completely. He has cut down on the amphetamine and cocaine use completely and hopefully he will be able to accomplish his goals of stopping drinking over the next 7 days. Discharge Plan: Home Plan to discharge in: 24 Hours - Advance Directives Does patient have a Living Will: No Does patient have a Durable POA for Healthcare: No - Code Status/Comfort Care Code Status Assessed: Yes Code Status: Full Code Critical Care: No Time Spent Managing PTS Care (In Minutes): 45
== END 2019-04-19 13:50 | disposition home or self-care (01) ==
LOC: 4TH 01:25
PROVIDERS: ADMIT Hospitalist; ATTEND Family Medicine
DX: R07.9 Chest pain, unspecified (principal); I10 Essential (primary) hypertension; F10.20 Alcohol dependence, uncomplicated; Z79.899 Other long term (current) drug therapy; Z87.891 Personal history of nicotine dependence
CPT/HCPCS: 36415; 80061; 80307; 84484; 93017; 93306; G0378; G0379; J1650

== ENCOUNTER 2020-04-18 00:01 | Emergency (ER) | payer SELFPAY ==
--- OUTSIDE RECORDS SUMMARY | 2020-04-18 00:04 | XMS REPORT | Continuity of Care Document ---
:1990 Author Organization [facility] t Address [address] [place] [address] Care Team Providers Name Role Phone Adrien GARCÍA, D Attending Clinician Unavailable Mitali VAZQUEZ R Attending Clinician Jareth Ybarra NP Attending Clinician Problems This patient has no known problems. Allergies, Adverse Reactions, Alerts This patient has no known allergies or adverse reactions. Medications This patient has no known medications. Procedures This patient has no known procedures. Encounters Start End Encounter Admission Attending Care Care Encounter Source Date/Time Date/Time Type Type Clinicians Facility Department ID 2020-03-16 2020-03-16 Telephone MILAGRO Jurado [id number] 00:00:00 00:00:00 Clarita PLASCENCIA [id number] [place] [id number] 2020-03-09 2020-03-09 Emergency [facility] [id number] 19:09:00 19:31:00 Chantelle Guadarrama [id number] [place] [id number] [place] [id number] 2018-10-20 2018-10-20 Emergency [facility] [id number] 20:09:23 21:25:00 Kassandra Guadarrama [id number] [place] [id number] [place] [id number] Results This patient has no known results.
[2020-04-18 00:59] LABS: Absolute Lymphocytes (CBC) 2.4 K/uL (0.7-4.9); Basophils % 0.5 % (0-1.3); Hematocrit 46.9 % (39.6-49.0); Lymphocytes % 28.7 % (15.3-44.8); MPV 8.4 fL (7.6-11.3); RBC Red Blood Cell Count 5.19 M/uL (4.33-5.43)
[2020-04-18 01:00] LABS: Protime INR 1.05
[2020-04-18 01:15] LABS: ALT/SGPT 28 U/L (12-78); AST/SGOT 12 U/L (15-37); Albumin 4.2 g/dL (3.4-5.0); Alkaline Phosphatase 67 U/L (45-117); BUN Blood Urea Nitrogen 11 mg/dL (7-18); Bicarbonate 28 mmol/L (21-32); Bilirubin Direct 0.2 mg/dL (0-0.2); Bilirubin Total 1.1 mg/dL (0.2-1.0); Glucose Level 90 mg/dL (74-106); Magnesium 2.2 mg/dL (1.8-2.4); NT PRO-BNP 15 pg/mL (<125); Potassium 3.4 mmol/L (3.5-5.1); Protein, Total 7.9 g/dL (6.4-8.2); Sodium Level 138 mmol/L (136-145); Troponin (Emerg Dept Use Only) < 0.02 ng/mL (0.0-0.045)
--- NOTE | 2020-04-18 01:48 | ER ---
Nurse's Notes [facility] [place] Name: Vic Hernandez Age: 29 yrs Sex: Male : 1990 Arrival Date: 04/18/2020 Time: 00:04 Bed 2 Private MD: Diagnosis: Chest pain, unspecified;Adverse effect of amphetamines;Abuse of non-psychoactive substances;Hypokalemia Presentation: 04/18 00:05 Chief complaint: EMS states: complaints of chest pain started around 5 PM today. rr5 Coronavirus screen: Client denies travel out of the [place] in the last 14 days. At this time, the client does not indicate any symptoms associated with coronavirus-19. Ebola Screen: Patient negative for fever greater than or equal to 101.5 degrees Fahrenheit, and additional compatible Ebola Virus Disease symptoms Patient denies exposure to infectious person. Patient denies travel to an Ebola-affected area in the 21 days before illness onset. Initial Sepsis Screen: Does the patient meet any 2 criteria? No. Patient's initial sepsis screen is negative. Does the patient have a suspected source of infection? No. Patient's initial sepsis screen is negative. Risk Assessment: Do you want to hurt yourself or someone else? Patient reports no desire to harm self or others. Note patient denies chest pain right now. characteristic of on and off pain. he feels weak. last intake of alcohol last night. methamphetamine and Xanax taken as stated. Onset of symptoms was April 17, 2020 at 17:00. 00:05 Method Of Arrival: EMS: [facility] rr5 00:05 Acuity: [place] 3 rr5 Triage Assessment: 00:05 General: Appears in no apparent distress. Behavior is calm, cooperative, appropriate rr5 for age. Historical: - Allergies: 00:09 No Known Allergies; rr5 - PMHx: 00:09 ADD/ADHD; Anxiety; Heart Arrythmia; Hypertension; rr5 - Immunization history:: Adult Immunizations not up to date. - Social history:: Smoking status: Patient reports the use of cigarette tobacco products, denies chronic smoking, but will smoke occasionally, Patient uses alcohol, on a daily basis. claims drinking about a 6 pack/day. street drugs, Methamphetamine (Meth) xanax. - Family history:: not pertinent. Screenin:38 Abuse screen: Denies threats or abuse. Nutritional screening: No deficits noted. ea Tuberculosis screening: No symptoms or risk factors identified. Fall Risk IV access (20 points). Assessment: 00:05 General: Appears in no apparent distress. Behavior is calm, cooperative, appropriate rr5 for age. Pain: Denies pain. Complains of pain in chest Pain does not radiate. Pain currently is 0 out of 10 on a pain scale. Pain began. Neuro: Level of Consciousness is awake, alert, obeys commands, Oriented to person, place, time, situation, Reports weakness. Cardiovascular: Reports chest pain, Capillary refill < 3 seconds Patient's skin is warm and dry. 00:05 Respiratory: Airway is patent Respiratory effort is even, unlabored, Respiratory rr5 pattern is regular, symmetrical. GI: No signs and/or symptoms were reported involving the gastrointestinal system. : No signs and/or symptoms were reported regarding the genitourinary system. EENT: No signs and/or symptoms were reported regarding the EENT system. Derm: Skin is intact, is healthy with good turgor, Skin temperature is warm. Musculoskeletal: Capillary refill < 3 seconds. 01:55 Reassessment: Patient appears in no apparent distress at this time. Patient is alert, rr5 oriented x 3, equal unlabored respirations, skin warm/dry/pink. order for discharge after the UDS result. 02:05 Reassessment: confirm by Ankita to provider if patient can go home, with verbal order he rr5 can go. 02:35 Reassessment: Patient appears in no apparent distress at this time. Patient is alert, rr5 oriented x 3, equal unlabored respirations, skin warm/dry/pink. discharge instruction given and explained without complaints made. Vital Signs: 00:05 BP 131 / 93; Pulse 98; Resp 18; Temp 98; Pulse Ox 100% ; Weight 74.84 kg; Height 5 ft. rr5 6 in. (167.64 cm); Pain 0/10; 02:04 BP 128 / 99; Pulse 80; Resp 18; Pulse Ox 100% ; ea 02:34 BP 121 / 70; Pulse 75; Resp 17; Pulse Ox 98% ; rr5 00:05 Body Mass Index 26.63 (74.84 kg, 167.64 cm) rr5 ED Course: 00:04 Patient arrived in ED. rr5 00:09 Triage completed. rr5 00:16 Logan Maynard, RN is Primary Nurse. rr5 00:16 Arm band placed on right wrist. rr5 00:30 EKG done, by ED staff, reviewed by Alvarez Leiva MD. rr5 00:43 Alvarez Leiva MD is Attending Physician. shawn 00:51 XRAY Chest (1 view) In Process Unspecified. EDMS 01:38 Patient has correct armband on for positive identification. Bed in low position. Call ea light in reach. telemetry monitor on. Pulse ox on. NIBP on. 01:47 Kendall Toscano MD is Referral Physician. shawn 02:05 Patient maintains SpO2 saturation greater than 95% on room air. ea 02:35 No provider procedures requiring assistance completed. IV discontinued, intact, ea bleeding controlled, No redness/swelling at site. Pressure dressing applied. Administered Medications: 01:55 Drug: Potassium Effervescent Tablet 25 mEq Route: PO; ea 02:30 Follow up: Response: No adverse reaction ea 01:55 Drug: NS 0.9% 1000 ml Route: IV; Rate: 1 bolus; Site: right antecubital; ea 02:30 Follow up: Response: No adverse reaction; IV Status: Completed infusion; IV Intake: ea 1000ml Intake: 02:30 IV: 1000ml; Total: 1000ml. ea Outcome: 01:48 Discharge ordered by . shawn 02:35 Discharged to home with family. ea 02:35 Condition: stable 02:35 Discharge instructions given to patient, Instructed on discharge instructions, follow up and referral plans. medication usage, Demonstrated understanding of instructions, follow-up care, medications, Prescriptions given X 1. 02:36 Patient left the ED. ea Signatures: Dispatcher [employer] EDND Alvarez Leiva MD MD cha Antunez, Elena, RN RN Logan Salcedo, RN RN rr5 Corrections: (The following items were deleted from the chart) 00:16 00:05 BP 131 / 93; Pulse 98bpm; Resp 88bpm; Pulse Ox 100%; Temp 98F; 74.84 kg; Height 5 rr5 ft. 6 in.; BMI: 26.6; Pain 0/10; rr5 02:34 00:05 Note patient denies chest pain right now. characteristic of on and off pain. he rr5 feels weak. last intake of alcohol last night rr5
--- NOTE | 2020-04-18 01:48 | EDPHYS ---
Physician Documentation [facility] [place] Name: Vic Hernandez Age: 29 yrs Sex: Male : 1990 Arrival Date: 04/18/2020 Time: 00:04 Bed 2 Private MD: ANNA Physician Alvarez Leiva HPI: 04/18 01:09 This 29 yrs old Male presents to ER via EMS with complaints of Chest Pain. shawn 01:09 The patient or guardian reports chest pain that is located primarily in the anterior [facility] chest wall. The pain does not radiate. Associated signs and symptoms: The patient has no apparent associated signs or symptoms. The chest pain is described as a pressure. Duration: The patient or guardian reports multiple episodes, with no pattern. Modifying factors: The symptoms are alleviated by nothing. the symptoms are aggravated by nothing. Severity of pain: At its worst the pain was mild in the emergency department the pain is unchanged. The patient has not experienced similar symptoms in the past. Historical: - Allergies: 00:09 No Known Allergies; rr5 - PMHx: 00:09 ADD/ADHD; Anxiety; Heart Arrythmia; Hypertension; rr5 - Immunization history:: Adult Immunizations not up to date. - Social history:: Smoking status: Patient reports the use of cigarette tobacco products, denies chronic smoking, but will smoke occasionally, Patient uses alcohol, on a daily basis. claims drinking about a 6 pack/day. street drugs, Methamphetamine (Meth) xanax. - Family history:: not pertinent. ROS: 01:09 Constitutional: Negative for fever, chills, and weight loss, Eyes: Negative for injury, shawn pain, redness, and discharge, ENT: Negative for injury, pain, and discharge, Neck: Negative for injury, pain, and swelling, Respiratory: Negative for shortness of breath, cough, wheezing, and pleuritic chest pain, Abdomen/GI: Negative for abdominal pain, nausea, vomiting, diarrhea, and constipation, Back: Negative for injury and pain, : Negative for injury, bleeding, discharge, and swelling, MS/Extremity: Negative for injury and deformity, Skin: Negative for injury, rash, and discoloration, Neuro: Negative for headache, weakness, numbness, tingling, and seizure, Psych: Negative for depression, anxiety, suicide ideation, homicidal ideation, and hallucinations, Allergy/Immunology: Negative for hives, rash, and allergies, Endocrine: Negative for neck swelling, polydipsia, polyuria, polyphagia, and marked weight changes, Hematologic/Lymphatic: Negative for swollen nodes, abnormal bleeding, and unusual bruising. : Cardiovascular: Positive for chest pain, of the chest. Exam: : Constitutional: This is a well developed, well nourished patient who is awake, alert, shawn and in no acute distress. Head/Face: Normocephalic, atraumatic. Eyes: Pupils equal round and reactive to light, extra-ocular motions intact. Lids and lashes normal. Conjunctiva and sclera are non-icteric and not injected. Cornea within normal limits. Periorbital areas with no swelling, redness, or edema. ENT: Nares patent. No nasal discharge, no septal abnormalities noted. Tympanic membranes are normal and external auditory canals are clear. Oropharynx with no redness, swelling, or masses, exudates, or evidence of obstruction, uvula midline. Mucous membranes moist. Neck: Trachea midline, no thyromegaly or masses palpated, and no cervical lymphadenopathy. Supple, full range of motion without nuchal rigidity, or vertebral point tenderness. No Meningismus. Chest/axilla: Normal chest wall appearance and motion. Nontender with no deformity. No lesions are appreciated. Cardiovascular: Regular rate and rhythm with a normal S1 and S2. No gallops, murmurs, or rubs. Normal PMI, no JVD. No pulse deficits. Respiratory: Lungs have equal breath sounds bilaterally, clear to auscultation and percussion. No rales, rhonchi or wheezes noted. No increased work of breathing, no retractions or nasal flaring. Abdomen/GI: Soft, non-tender, with normal bowel sounds. No distension or tympany. No guarding or rebound. No evidence of tenderness throughout. Back: No spinal tenderness. No costovertebral tenderness. Full range of motion. Male : Normal genitalia with no discharge or lesions. Skin: Warm, dry with normal turgor. Normal color with no rashes, no lesions, and no evidence of cellulitis. MS/ Extremity: Pulses equal, no cyanosis. Neurovascular intact. Full, normal range of motion. Neuro: Awake and alert, GCS 15, oriented to person, place, time, and situation. Cranial nerves II-XII grossly intact. Motor strength 5/5 in all extremities. Sensory grossly intact. Cerebellar exam normal. Normal gait. Psych: Awake, alert, with orientation to person, place and time. Behavior, mood, and affect are within normal limits. 01:09 Musculoskeletal/extremity: Extremities: all appear grossly normal, with no appreciated pain with palpation, ROM: no acute changes, Circulation is intact in all extremities. Sensation intact. Compartment Syndrome exam of affected extremity: is normal. DVT Exam: No signs of deep vein thrombosis. no pain, no swelling, no tenderness, negative Homans' sign noted on exam, no appreciated bluish discoloration, no erythema, no increased warmth. 01:13 ECG was reviewed by the Attending Physician. [facility] Vital Signs: 00:05 BP 131 / 93; Pulse 98; Resp 18; Temp 98; Pulse Ox 100% ; Weight 74.84 kg; Height 5 ft. rr5 6 in. (167.64 cm); Pain 0/10; 02:04 BP 128 / 99; Pulse 80; Resp 18; Pulse Ox 100% ; ea 02:34 BP 121 / 70; Pulse 75; Resp 17; Pulse Ox 98% ; rr5 00:05 Body Mass Index 26.63 (74.84 kg, 167.64 cm) rr5 MDM: 00:43 Patient medically screened. shawn 01:11 Differential diagnosis: abnormal EKG, chest wall pain, costochondritis, hiatal hernia, shawn pancreatitis, stable angina, unstable angina. HEART Score: History: Slightly Suspicious (0), ECG: Normal (0), Age: < or = 45 years (0), Risk Factors: 1 or 2 risk factors (1), [Active Smoker] [+ Family HX] Troponin: < or = 1 x Normal Limit (0). The patient's deep vein thrombosis risk score was calculated as follows: Total Score: 3 or more points. This patient was found to be at high risk for a deep vein thrombosis by using the Well's assessment criteria. The patient's pulmonary embolism risk score was calculated as follows: Total Score: 0-2 points. This patient was found to be at low risk for a pulmonary embolism by using the Well's assessment criteria. SAI Risk Score: not applicable. Data reviewed: vital signs, nurses notes, lab test result(s), EKG, radiologic studies, plain films. Data interpreted: ekg monitor tech: rate is 98 beats/min, rhythm is regular, Pulse oximetry: on room air is 100 %. Test interpretation: by ED physician or midlevel provider: ECG, plain radiologic studies. Counseling: I had a detailed discussion with the patient and/or guardian regarding: the historical points, exam findings, and any diagnostic results supporting the discharge/admit diagnosis, lab results, radiology results, the need for outpatient follow up, for definitive care, a family practitioner, a psychiatrist. 04/18 00:18 Order name: Basic Metabolic Panel 04/18 00:18 Order name: CBC with Diff; Complete Time: 01:14 04/18 00:18 Order name: LFT's; Complete Time: :45 04/18 00:18 Order name: Magnesium; Complete Time: :45 04/18 00:18 Order name: NT PRO-BNP; Complete Time: :45 04/18 00:18 Order name: Troponin (emerg Dept Use Only); Complete Time: :45 04/18 00:19 Order name: Basic Metabolic Panel; Complete Time: 01:45 EDMS 04/18 00:26 Order name: ETOH Level; Complete Time: :45 04/18 00:26 Order name: Ptt, Activated; Complete Time: 01:14 04/18 00:26 Order name: Salicylate; Complete Time: 01:45 04/18 00:49 Order name: Protime (+INR); Complete Time: 01:14 EDMS 04/18 00:18 Order name: XRAY Chest (1 view) 04/18 00:18 Order name: EKG; Complete Time: 00:20 04/18 00:18 Order name: Cardiac monitoring; Complete Time: 00:57 04/18 00:18 Order name: EKG - Nurse/Tech; Complete Time: 00:57 04/18 00:18 Order name: IV Saline Lock; Complete Time: 00:57 04/18 00:18 Order name: Labs collected and sent; Complete Time: 00:57 04/18 00:18 Order name: O2 Per Protocol; Complete Time: 00:57 04/18 00:18 Order name: O2 Sat Monitoring; Complete Time: 00:58 rr5 04/18 00:59 Order name: Acetaminophen Level; Complete Time: 01:45 EDMS EC:13 Rate is 85 beats/min. Rhythm is regular. QRS [place] is Normal. CT interval is normal. QRS shawn interval is normal. QT interval is normal. No Q waves. T waves are Normal. No ST changes noted. Clinical impression: NSR w/ Non-specific ST/T Changes and No evidence of ischemia. Interpreted by me. Reviewed by me. Administered Medications: :55 Drug: Potassium Effervescent Tablet 25 mEq Route: PO; ea 02:30 Follow up: Response: No adverse reaction ea :55 Drug: NS 0.9% 1000 ml Route: IV; Rate: 1 bolus; Site: right antecubital; ea 02:30 Follow up: Response: No adverse reaction; IV Status: Completed infusion; IV Intake: ea 1000ml Disposition: 04/18/20 01:48 Discharged to Home. Impression: Chest pain, unspecified, Adverse effect of amphetamines, Abuse of non-psychoactive substances, Hypokalemia. - Condition is Stable. - Discharge Instructions: Stimulant Use Disorder-Amphetamines, Nonspecific Chest Pain, Potassium Content of Foods, Substance Use Disorder, Chest Wall Pain, [id number], Nonspecific Chest Pain, [id number]-kk-Frfp, Stimulant Use Disorder-Methamphetamines, Aspirin and Your Heart, Hypokalemia. - Prescriptions for Pepcid 20 mg Oral Tablet - take 1 tablet by ORAL route every 12 hours for 10 days; 20 tablet. - Medication Reconciliation Form, Thank You Letter, Antibiotic Education, Prescription Opioid Use form. - Follow up: Private Physician; When: 2 - 3 days; Reason: Recheck today's complaints, Continuance of care, Re-evaluation by your physician. Follow up: Kendall Toscano; When: 2 - 3 days; Reason: Recheck today's complaints, Continuance of care, Re-evaluation by your physician. - Problem is new. - Symptoms have improved. Signatures: Dispatcher [employer] EDChapo Pan, RN Alvarez Muñoz MD MD cha Antunez, Elena, RN RN ea Roque, Raymond RN RN rr5 Corrections: (The following items were deleted from the chart) 00:49 00:20 PROTIME (+INR)+COAG.LAB.BRZ ordered. EDMS EDMS 00:59 00:27 ACETAMINOPHEN+C.LAB.BRZ ordered. EDMN EDMS 02:36 01:48 04/18/2020 01:48 Discharged to Home. Impression: Chest pain, unspecified; Adverse ea effect of amphetamines; Abuse of non-psychoactive substances; Hypokalemia. Condition is Stable. Discharge Instructions: Stimulant Use Disorder-Amphetamines, Nonspecific Chest Pain, Substance Use Disorder, Chest Wall Pain, Rcql-sv-[id number], Nonspecific Chest Pain, Rglv-qb-Ospt, Stimulant Use Disorder-Methamphetamines, Aspirin and Your Heart. Prescriptions for Pepcid 20 mg Oral Tablet - take 1 tablet by ORAL route every 12 hours for 10 days; 20 tablet. and Forms are Medication Reconciliation Form, Thank You Letter, Antibiotic Education, Prescription Opioid Use. Follow up: Private Physician; When: 2 - 3 days; Reason: Recheck today's complaints, Continuance of care, Re-evaluation by your physician. Follow up: Kendall Toscano; When: 2 - 3 days; Reason: Recheck today's complaints, Continuance of care, Re-evaluation by your physician. Problem is new. Symptoms have improved. shawn
[2020-04-18] MEDS ORDERED: POTASSIUM 25 MEQ EFFERV TAB ONE (02:08)
[2020-04-18] MEDS ORDERED: NA CHLORIDE 0.9% 1,000 ML ONE (02:08)
[2020-04-18 07:21] VITALS: TEMP 98
[2020-04-18 07:23] VITALS: BP 121/70; O2SAT 98
--- NOTE | 2020-04-18 07:55 | RAD REPORT ---
EXAM DESCRIPTION: RAD - Chest Single View - 04/18/2020 12:51 am CLINICAL HISTORY: CHEST PAIN COMPARISON: Portable October 2018 TECHNIQUE: AP portable chest image was obtained 04/18/2020 12:51 am . FINDINGS: Lungs are clear. Interstitial pattern matches comparison. Heart and vasculature are normal . No measurable pleural effusion and no pneumothorax. No acute bony abnormality seen. No acute aortic findings suspected. IMPRESSION: No acute cardiopulmonary process. No significant change from comparison study.
--- NOTE | 2020-04-18 14:09 | EKG ---
Test Date: 2020-04-18 Test Time: 00:22:11 [employer]: RR MEASUREMENT RESULTS: Intervals: Rate: 85 ND: 204 QRSD: 102 QT: 374 QTc: 445 [place]: P: 71 ND: 204 QRS: 61 T: 41 INTERPRETIVE STATEMENTS: Normal sinus rhythm Normal ECG Compared to ECG 11/09/2018 14:34:49 T-wave abnormality no longer present Possible ischemia no longer present Electronically Signed On 04-18-20 14:08:51 ANIMAL CARE ASSISTANT by Keyur Keane
== END 2020-04-18 02:36 | disposition home or self-care (01) ==
LOC: ER 00:01
DX: F55.8 Abuse of other non-psychoactive substances (principal); T43.625A Adverse effect of amphetamines, initial encounter; E87.6 Hypokalemia; I10 Essential (primary) hypertension; F17.210 Nicotine dependence, cigarettes, uncomplicated
CPT/HCPCS: 36415; 71045; 80048; 80076; 80320; 80329; 83735; 83880; 84484; 85025; 85610; 85730; 93005; 96360; 99285; J7030

== ENCOUNTER 2020-08-25 06:53 | Emergency (ER) | payer SELFPAY ==
--- OUTSIDE RECORDS SUMMARY | 2020-08-25 07:08 | XMS REPORT | Continuity of Care Document ---
:1990 Author Organization [facility] t Address [address] [place] [address] Dr. Alicia [address] [place] [address] Care Team Providers Name Role Phone Giovani VAZQUEZ Attending Clinician Doctor Unassigned, Name Attending Clinician Unavailable Adrien RN, D Attending Clinician Unavailable Mitali VAZQUEZ, R Attending Clinician Tate ROBERSON, G Attending Clinician Problems This patient has no known problems. Allergies, Adverse Reactions, Alerts This patient has no known allergies or adverse reactions. Medications This patient has no known medications. Procedures This patient has no known procedures. Encounters Start End Encounter Admission Attending Care Care Encounter Source Date/Time Date/Time Type Type Clinicians Facility Department ID 2020-08-09 2020-08-09 Emergency Giovani [facility] [[email or web address] [id number] 12:33:00 13:51:00 Tess Guadarrama [id number] [place] [id number] [place] [id number] 2020-08-09 2020-08-09 Orders Doctor [place] [id number] 00:00:00 00:00:00 Only UnassTHAIS ho [id number] [place] [id number] 2020-03-16 2020-03-16 Telephone MILAGRO [place] [id number] 00:00:00 00:00:00 Clarita PLASCENCIA [id number] [id number] 2020-03-09 2020-03-[address] [facility] [id number] 19:09:00 19:31:00 Chantelle Guadarrama [id number] [place] [id number] [place] [id number] 2018-10-20 2018-10-20 Emergency [facility] [id number] 20:09:23 21:25:00 Kassandra Gu[place]arrama [id number] [place] [id number] [place] [id number] Results This patient has no known results.
[2020-08-25] MEDS ORDERED: NA CHLORIDE 0.9% 1,000 ML ONE (07:40)
[2020-08-25] MEDS ORDERED: ASPIRIN 81 MG CHEWABLE TABLET ONE (07:40)
[2020-08-25 08:15] LABS: Urine Blood Negative (Negative); Urine Glucose Negative (Negative); Urine Protein Negative (Negative); Urine Specific Gravity 1.015 (1.005-1.030)
[2020-08-25 08:24] LABS: Absolute Lymphocytes (CBC) 1.3 K/uL (0.7-4.9); Hematocrit 39.5 % (39.6-49.0); Lymphocytes % 11.9 % (15.3-44.8); MPV 7.5 fL (7.6-11.3); RBC Red Blood Cell Count 4.49 M/uL (4.33-5.43)
--- NOTE | 2020-08-25 08:33 | RAD REPORT ---
EXAM DESCRIPTION: RAD - Chest Single View - 08/25/2020 7:43 am CLINICAL HISTORY: CHEST PAIN COMPARISON: April 18 TECHNIQUE: AP portable chest image was obtained 08/25/2020 7:43 am . FINDINGS: Lungs are clear. Heart and vasculature are normal. No measurable pleural effusion and no p neumothorax. No acute bony abnormality seen. No acute aortic findings suspected. IMPRESSION: No acute cardiopulmonary process. No significant change from comparison study.
[2020-08-25 08:34] LABS: Protime INR 1.04
[2020-08-25 08:46] LABS: ALT/SGPT 22 U/L (12-78); AST/SGOT 13 U/L (15-37); Albumin 2.8 g/dL (3.4-5.0); Alkaline Phosphatase 46 U/L (45-117); BUN Blood Urea Nitrogen 8 mg/dL (7-18); Bicarbonate 24 mmol/L (21-32); Bilirubin Direct < 0.1 mg/dL (0-0.2); Bilirubin Total 0.3 mg/dL (0.2-1.0); Glucose Level 80 mg/dL (74-106); Potassium 3.1 mmol/L (3.5-5.1); Protein, Total 5.5 g/dL (6.4-8.2); Sodium Level 145 mmol/L (136-145); Troponin (Emerg Dept Use Only) 0.02 ng/mL (0.0-0.045)
--- NOTE | 2020-08-25 08:50 | EDPHYS ---
Physician Documentation [facility] Name: Vic Hernandez Age: 29 yrs Sex: Male : 1990 Arrival Date: 08/25/2020 Time: 06:55 Bed 8 Private MD: ED Physician Alvarez Leiva HPI: 08/25 07:27 This 29 yrs old Male presents to ER via EMS with complaints of USED COCAINE, shawn HEART RACING. 07:27 The patient presents with a history of heart racing. Context: The symptoms occur at shawn rest. Onset: The symptoms/episode began/occurred this morning, today. Duration: The patient or guardian reports multiple episodes, that are intermittent. Modifying factors: The symptoms are aggravated by nothing. The symptoms are alleviated by nothing. Associated signs and symptoms: The patient has no apparent associated signs or symptoms. Severity of symptoms: At their worst the symptoms were mild in the emergency department the symptoms are unchanged. The patient has experienced similar episodes in the past, several times. Historical: - Allergies: 06:57 No Known Allergies; em - Home Meds: 06:57 losartan Oral [Active]; em - PMHx: 06:57 ADD/ADHD; Anxiety; Heart Arrythmia; Hypertension; em - PSHx: 06:57 None; em - Immunization history:: Adult Immunizations up to date. - Social history:: Smoking status: Reported history of juuling and/or vaping. - Family history:: not pertinent. ROS: 07:27 Constitutional: Negative for fever, chills, and weight loss, Eyes: Negative for injury, shawn pain, redness, and discharge, ENT: Negative for injury, pain, and discharge, Neck: Negative for injury, pain, and swelling, Respiratory: Negative for shortness of breath, cough, wheezing, and pleuritic chest pain, Abdomen/GI: Negative for abdominal pain, nausea, vomiting, diarrhea, and constipation, Back: Negative for injury and pain, : Negative for injury, bleeding, discharge, and swelling, MS/Extremity: Negative for injury and deformity, Skin: Negative for injury, rash, and discoloration, Neuro: Negative for headache, weakness, numbness, tingling, and seizure, Psych: Negative for depression, anxiety, suicide ideation, homicidal ideation, and hallucinations, Allergy/Immunology: Negative for hives, rash, and allergies, Endocrine: Negative for neck swelling, polydipsia, polyuria, polyphagia, and marked weight changes, Hematologic/Lymphatic: Negative for swollen nodes, abnormal bleeding, and unusual bruising. 07:27 Cardiovascular: Positive for palpitations. Exam: 07:27 Constitutional: This is a well developed, well nourished patient who is awake, alert, shawn and in no acute distress. Head/Face: Normocephalic, atraumatic. Eyes: Pupils equal round and reactive to light, extra-ocular motions intact. Lids and lashes normal. Conjunctiva and sclera are non-icteric and not injected. Cornea within normal limits. Periorbital areas with no swelling, redness, or edema. ENT: Nares patent. No nasal discharge, no septal abnormalities noted. Tympanic membranes are normal and external auditory canals are clear. Oropharynx with no redness, swelling, or masses, exudates, or evidence of obstruction, uvula midline. Mucous membranes moist. Neck: Trachea midline, no thyromegaly or masses palpated, and no cervical lymphadenopathy. Supple, full range of motion without nuchal rigidity, or vertebral point tenderness. No Meningismus. Chest/axilla: Normal chest wall appearance and motion. Nontender with no deformity. No lesions are appreciated. Cardiovascular: Regular rate and rhythm with a normal S1 and S2. No gallops, murmurs, or rubs. Normal PMI, no JVD. No pulse deficits. Respiratory: Lungs have equal breath sounds bilaterally, clear to auscultation and percussion. No rales, rhonchi or wheezes noted. No increased work of breathing, no retractions or nasal flaring. Abdomen/GI: Soft, non-tender, with normal bowel sounds. No distension or tympany. No guarding or rebound. No evidence of tenderness throughout. Back: No spinal tenderness. No costovertebral tenderness. Full range of motion. Male : Normal genitalia with no discharge or lesions. Skin: Warm, dry with normal turgor. Normal color with no rashes, no lesions, and no evidence of cellulitis. MS/ Extremity: Pulses equal, no cyanosis. Neurovascular intact. Full, normal range of motion. Neuro: Awake and alert, GCS 15, oriented to person, place, time, and situation. Cranial nerves II-XII grossly intact. Motor strength 5/5 in all extremities. Sensory grossly intact. Cerebellar exam normal. Normal gait. Psych: Awake, alert, with orientation to person, place and time. Behavior, mood, and affect are within normal limits. 07:34 ECG was reviewed by the Attending Physician. [facility] Vital Signs: 06:55 BP 152 / 111; Pulse 90; Resp 16; Temp 97.8; Pulse Ox 98% on R/A; Weight 74.84 kg; em Height 5 ft. 7 in. (170.18 cm); Pain 0/10; 07:36 BP 146 / 110; Pulse 85; Resp 18; Pulse Ox 100% on R/A; ph 08:00 BP 146 / 99; Pulse 57; Resp 20; Pulse Ox 100% on R/A; kg 08:30 BP 141 / 103; Pulse 70; Resp 20; Pulse Ox 100% on R/A; kg 09:00 BP 145 / 102; Pulse 78; Resp 20; Pulse Ox 100% on R/A; kg 06:55 Body Mass Index 25.84 (74.84 kg, 170.18 cm) em MDM: 07:06 Patient medically screened. [facility] 07:31 Differential diagnosis: arrythmia, dehydration. Data reviewed: vital signs, nurses [facility] notes, lab test result(s), EKG, radiologic studies, plain films. Data interpreted: desk monitor: rate is 90 beats/min, rhythm is regular. Test interpretation: by ED physician or midlevel provider: ECG, plain radiologic studies. Counseling: I had a detailed discussion with the patient and/or guardian regarding: the historical points, exam findings, and any diagnostic results supporting the discharge/admit diagnosis, lab results, radiology results, the need for outpatient follow up, for definitive care, a sas programmer, a family practitioner. 08/25 06:58 Order name: Acetaminophen em 08/25 06:58 Order name: Basic Metabolic Panel 08/25 06:58 Order name: CBC with Diff; Complete Time: 08:49 em 08/25 06:58 Order name: ETOH Level; Complete Time: 08:49 08/25 06:58 Order name: Hepatic Function em 08/25 06:58 Order name: PT-INR; Complete Time: 08:49 08/25 06:58 Order name: Ptt, Activated; Complete Time: 08:49 em 08/25 06:58 Order name: Salicylate; Complete Time: 08:49 em 08/25 06:58 Order name: Urine Drug Screen em 08/25 06:58 Order name: Chest Single View XRAY; Complete Time: 08:49 em 08/25 06:58 Order name: Troponin (emerg Dept Use Only) em 08/25 08:14 Order name: Urine Dipstick-Ancillary; Complete Time: 08:18 EDMS 08/25 06:58 Order name: EKG; Complete Time: 06:59 em 08/25 06:58 Order name: EKG - Nurse/Tech; Complete Time: 07:34 em 08/25 06:58 Order name: IV Saline Lock; Complete Time: 07:34 em 08/25 06:58 Order name: Labs collected and sent; Complete Time: 07:34 em 08/25 06:58 Order name: Suicide Screening ([place]); Complete Time: 07:34 em 08/25 06:58 Order name: Urine Dipstick-Ancillary (obtain specimen); Complete Time: 08:15 em 08/25 08:01 Order name: Labs - recollect needed: recollect all labs; Complete Time: 08:15 bd EC:34 Rate is 82 beats/min. Rhythm is regular. QRS [place] is Normal. [place] interval is normal. QRS shawn interval is normal. QT interval is normal. No Q waves. T waves are Normal. No ST changes noted. Clinical impression: NSR w/ Non-specific ST/T Changes and No evidence of ischemia. Interpreted by me. Reviewed by me. Administered Medications: 07:33 Drug: Aspirin Chewable Tablet 162 mg Route: PO; bs2 08:15 Follow up: Response: No adverse reaction ph 07:33 Drug: NS 0.9% 1000 ml Route: IV; Rate: 1 bolus; Site: left antecubital; bs2 09:11 Follow up: IV Status: Completed infusion; IV Intake: 1000ml kg 09:10 Drug: Potassium Effervescent Tablet 50 mEq Route: PO; kg 09:11 Follow up: Response: No adverse reaction kg 09:10 Drug: Norvasc (amlodipine) 5 mg Route: PO; kg 09:11 Follow up: Response: No adverse reaction kg 09:10 Drug: Atarax (hydrOXYzine) 50 mg Route: PO; kg 09:10 Follow up: Response: No adverse reaction kg Disposition Summary: 08/25/20 08:50 Discharge Ordered Location: Home shawn Problem: new shawn Symptoms: have improved shawn Condition: Stable shawn Diagnosis - Palpitations shawn - Essential (primary) hypertension shawn - Hypokalemia shawn - Cocaine abuse(08/25/20 09:10) shawn Followup: shawn - With: Private Physician - When: 2 - 3 days - Reason: Recheck today's complaints, Continuance of care, Re-evaluation by your physician Followup: shawn - With: - When: 2 - 3 days - Reason: Recheck today's complaints, Continuance of care, Re-evaluation by your physician Discharge Instructions: - Discharge Summary Sheet shawn - Cocaine Use Disorder shawn - Hypertension, Adult shawn - Palpitations shawn - Hypertension, Adult, [id number] shawn - Potassium Content of Foods shawn - How to Take Your Blood Pressure, [id number] shawn - Aspirin and Your Heart shawn - Palpitations, Ulcx-sw-[id number] shawn - Managing Your Hypertension shawn - Hypokalemia shawn - Form - Return To Work kg Forms: - Medication Reconciliation Form shawn - Thank You Letter shawn - Antibiotic Education shawn - Prescription Opioid Use shawn - Work release form kg Prescriptions: - Norvasc 5 mg Oral Tablet - take 1 tablet by ORAL route once daily; 20 tablet; Refills: 0, Product shawn Selection Permitted - Hydroxyzine HCl 50 mg Oral Tablet - take 1 tablet by ORAL route every 8 hours As needed; 20 tablet; Refills: 0, shawn Product Selection Permitted Signatures: Dispatcher [employer] Shakira Haines Corey, MD MD cha Munoz, Edgar RN RN Melida Smith RN RN Dian Sotelo bs2 Alyssa Ramos RN ph Corrections: (The following items were deleted from the chart) : 08:50 Cocaine abuse shawn shawn
--- NOTE | 2020-08-25 08:50 | ER ---
Nurse's Notes [facility] [place] Name: Vic Hernandez Age: 29 yrs Sex: Male : 1990 Arrival Date: 08/25/2020 Time: 06:55 Bed 8 Private MD: Diagnosis: Palpitations;Essential (primary) hypertension;Hypokalemia;Cocaine abuse Presentation: 08/25 06:55 Chief complaint: EMS states: reports using cocaine last night at 2 AM, reported chest em pain and heart racing, 20 G LAC. Coronavirus screen: Client denies travel out of the [place] in the last 14 days. Ebola Screen: Patient negative for fever greater than or equal to 101.5 degrees Fahrenheit, and additional compatible Ebola Virus Disease symptoms Patient denies exposure to infectious person. Patient denies travel to an Ebola-affected area in the 21 days before illness onset. No symptoms or risks identified at this time. Initial Sepsis Screen: Does the patient meet any 2 criteria? No. Patient's initial sepsis screen is negative. Does the patient have a suspected source of infection? No. Patient's initial sepsis screen is negative. Risk Assessment: Do you want to hurt yourself or someone else? Patient reports no desire to harm self or others. Onset of symptoms was August 25, 2020. 06:55 Method Of Arrival: EMS: [facility] em 06:55 Acuity: [facility] 3 em Historical: - Allergies: 06:57 No Known Allergies; em - Home Meds: 06:57 losartan Oral [Active]; em - PMHx: 06:57 ADD/ADHD; Anxiety; Heart Arrythmia; Hypertension; em - PSHx: 06:57 None; em - Immunization history:: Adult Immunizations up to date. - Social history:: Smoking status: Reported history of juuling and/or vaping. - Family history:: not pertinent. Screenin:35 Abuse screen: Denies threats or abuse. Denies injuries from another. Nutritional bs2 screening: No deficits noted. Tuberculosis screening: No symptoms or risk factors identified. Fall Risk None identified. No fall in past 12 months (0 pts). No secondary diagnosis (0 pts). IV access (20 points). Ambulatory Aid- None/Bed Rest/Nurse Assist (0 pts). Gait- Normal/Bed Rest/Wheelchair (0 pts) Mental Status- Oriented to own ability (0 pts). Total [place] Fall Scale indicates No Risk (0-24 pts). Assessment: 07:35 General: Appears in no apparent distress. Behavior is calm, cooperative, appropriate bs2 for age, quiet. Pain: Denies pain. Neuro: No deficits noted. Cardiovascular: Heart tones S1 S2. Respiratory: No deficits noted. GI: No deficits noted. GI: Reports nausea. : No deficits noted. EENT: No deficits noted. Derm: No deficits noted. Musculoskeletal: No deficits noted. 08:14 Reassessment: Patient appears in no apparent distress at this time. Patient and/or ph family updated on plan of care and expected duration. Pain level reassessed. Patient is alert, oriented x 3, equal unlabored respirations, skin warm/dry/pink. Blood recollected and sent to lab, pt ambulated to restroom w/ steady gait, awaiting lab results. Vital Signs: 06:55 BP 152 / 111; Pulse 90; Resp 16; Temp 97.8; Pulse Ox 98% on R/A; Weight 74.84 kg; em Height 5 ft. 7 in. (170.18 cm); Pain 0/10; 07:36 BP 146 / 110; Pulse 85; Resp 18; Pulse Ox 100% on R/A; ph 08:00 BP 146 / 99; Pulse 57; Resp 20; Pulse Ox 100% on R/A; kg 08:30 BP 141 / 103; Pulse 70; Resp 20; Pulse Ox 100% on R/A; kg 09:00 BP 145 / 102; Pulse 78; Resp 20; Pulse Ox 100% on R/A; kg 06:55 Body Mass Index 25.84 (74.84 kg, 170.18 cm) em ED Course: 06:55 Patient arrived in ED. em 06:57 Triage completed. em 06:57 Arm band placed on. em 07:06 Alvarez Leiva MD is Attending Physician. [facility] 07:10 Alyssa Ramos RN is Primary Nurse. ph 07:15 Maintain EMS IV. Dressing intact. Good blood return noted. Site clean \T\ dry. Gauge \T\ kg site: 20 L AC. 07:34 Chest Single View XRAY Sent. bs2 07:34 Acetaminophen Sent. bs2 07:34 CBC with Diff Sent. bs2 07:34 Basic Metabolic Panel Sent. bs2 07:34 ETOH Level Sent. bs2 07:34 Hepatic Function Sent. bs2 07:34 Ptt, Activated Sent. bs2 07:34 Salicylate Sent. bs2 07:34 Urine Drug Screen Sent. bs2 07:35 Patient has correct armband on for positive identification. Bed in low position. Call bs2 light in reach. Side rails up X 1. 07:43 Chest Single View XRAY In Process Unspecified. EDMS 08:50 Keyur Keane MD is Referral Physician. shawn 09:17 IV discontinued, intact, bleeding controlled, No redness/swelling at site. Pressure kg dressing applied. 09:17 No provider procedures requiring assistance completed. kg Administered Medications: 07:33 Drug: Aspirin Chewable Tablet 162 mg Route: PO; bs2 08:15 Follow up: Response: No adverse reaction ph 07:33 Drug: NS 0.9% 1000 ml Route: IV; Rate: 1 bolus; Site: left antecubital; bs2 09:11 Follow up: IV Status: Completed infusion; IV Intake: 1000ml kg 09:10 Drug: Potassium Effervescent Tablet 50 mEq Route: PO; kg 09:11 Follow up: Response: No adverse reaction kg 09:10 Drug: Norvasc (amlodipine) 5 mg Route: PO; kg 09:11 Follow up: Response: No adverse reaction kg 09:10 Drug: Atarax (hydrOXYzine) 50 mg Route: PO; kg 09:10 Follow up: Response: No adverse reaction kg Intake: 09:11 IV: 1000ml; Total: 1000ml. kg Outcome: 08:50 Discharge ordered by . shawn 09:17 Discharged to home ambulatory. kg 09:17 Condition: improved 09:17 Discharge instructions given to patient, Instructed on discharge instructions, follow up and referral plans. Demonstrated understanding of instructions, follow-up care, medications, Prescriptions given X 2. 09:18 Patient left the ED. kg Signatures: Dispatcher [employer] Alvarez Saenz MD MD cha Munoz, Edgar, RN RN Alyssa Vivas RN RN Melida Sales RN RN kg Smith, Bridget bs2 Corrections: (The following items were deleted from the chart) 09:17 07:53 Maintain EMS IV. Dressing intact. Good blood return noted. Site clean \T\ dry. kg Gauge \T\ site: 20 L AC. bs2
[2020-08-25 09:23] VITALS: TEMP 97.8
[2020-08-25] MEDS ORDERED: hydrOXYzine HCL 25 MG TAB ONE (09:23)
[2020-08-25] MEDS ORDERED: POTASSIUM 25 MEQ EFFERV TAB ONE (09:23)
[2020-08-25] MEDS ORDERED: AMLODIPINE 5 MG TAB ONE (09:23)
[2020-08-25 09:24] VITALS: O2SAT 100
[2020-08-25 09:30] VITALS: BP 145/102
[2020-08-25 10:55] LABS: Barbiturates NEGATIVE (NEGATIVE); Benzodiazepines NEGATIVE (NEGATIVE); Cocaine POSITIVE (NEGATIVE); METHAMPHETAM NEGATIVE (NEGATIVE); Methadone NEGATIVE (NEGATIVE); Opiates NEGATIVE (NEGATIVE); Phencyclidine NEGATIVE (NEGATIVE); THC Cannibis NEGATIVE (NEGATIVE)
--- NOTE | 2020-08-26 16:14 | EKG ---
Test Date: 2020-08-25 Test Time: 07:08:56 [employer]crete Plant Laborer: MENG MEASUREMENT RESULTS: Intervals: Rate: 82 VT: 202 QRSD: 102 QT: 368 QTc: 429 [place]: P: 44 VT: 202 QRS: 14 T: 32 INTERPRETIVE STATEMENTS: Normal sinus rhythm Normal ECG Compared to ECG 04/18/2020 00:22:11 No significant changes Electronically Signed On 08-26-20 16:09:01 CDT by Keyur Keane
== END 2020-08-25 09:18 | disposition home or self-care (01) ==
LOC: ER 06:53
DX: F14.10 Cocaine abuse, uncomplicated (principal); I10 Essential (primary) hypertension; E87.6 Hypokalemia
CPT/HCPCS: 36415; 71045; 80048; 80076; 80307; 80320; 80329; 81003; 84484; 85025; 85610; 85730; 93005; 96360; 96361; 99284; J7030

== ENCOUNTER 2021-03-09 23:54 | Emergency (ER) | payer SELFPAY ==
--- OUTSIDE RECORDS SUMMARY | 2021-03-09 23:58 | XMS REPORT | Continuity of Care Document ---
:1990 Author Organization [facility] [place] [facility] t Address [address] [place] [address] Care Team Providers Name Role Phone Giovani VAZQUEZ Attending Clinician Doctor Unassigned, Name Attending Clinician Unavailable Adrien RN, D Attending Clinician Unavailable Elijah VAZQUEZ R Attending Clinician Savita NAVA Attending Clinician Unavailable Tate LD TEACHER, G Attending Clinician Problems Condition Condition Condition Status Onset Resolution Last Treating Co mments Source Name Details Category Date Date Treatment Clinician Date No known No known Disease Unive rs active active ity of problems problems [facility] Allergies, Adverse Reactions, Alerts Allergy Allergy Status Severity Reaction(s) Onset Inactive Treating Comm ents Source Name Type Date Date Clinician NO KNOWN Drug Active Univers ALLERGIE Class ity of S [facility] Social History Social Habit Start Date Stop Date Quantity Comments Source Exposure to Not sure [facility] SARS-CoV-2 (event) Medica l [place] Sex Assigned At [birth year] [facility] 00:00:00 00:00:00 [facility] Smoking Status Start Date Stop Date Source Unknown if ever smoked [facility] Medications Ordered Filled Start Stop Current Ordering Indication Dosage Frequency Signature Comments Components Source Medication Medication Date Date Medication? Clinician (SIG) Name Name hydrOXYzine No 25mg 25 mg, Uni vers (ATARAX) 08-09 Oral, ity of tablet 25 18:45: 17:59 [place]CE, [place] mg [place] :[place] dose, [facility] Medical 08/09/20 at Branch 1345, JOEL ondansetron 2020- No 4mg 4 mg, Univ ers (ZOFRAN-ODT 08-09 Oral, ity of ) 18:45: 17:59 ONCE, 1 [place] disintegrat 00 :00 dose, Sat Med ical ing tablet 08/09/20 at [facility] 4 mg 1345, Routine ondansetron Yes [id number] 4mg Take 1 Univers (ZOFRAN 08-09 tablet by ity of ODT) 4 mg 00:00: mouth [place] disintegrat 00 every 8 Medic al ing tablet (eight) Branch hours as needed for Nausea and Vomiting (N/V). cephALEXin 2018- No 500mg 500 mg, Un yuliet (KEFLEX) 10-21 Oral, ity of capsule 500 02:30: 01:42 [place]CE[place] 1 [place] 00 :[place] dose, Tue Medical 10/20/18 at Branch 2130, JOEL
Re ason for Anti-Infec tive: Documented Infection< br>Documen serina Infection Site: Skin / Soft Tissue
Duration of Therapy: 7 days ibuprofen 2018- No 800mg 800 mg, Uni vers (IBU) 10-21 Oral, ity of tablet 800 02:30: 01:42 ONCE, 1 [place] mg 00 :00 dose, [facility] Medical 10/20/18 at Branch 2130, JOEL losartan 50 Yes 50mg Take 50 mg Univers mg tablet 10-21 by mouth ity of 01:51: daily. [address] losartan 50 Yes 50mg Take 50 mg Univers mg tablet 10-21 by mouth ity of 01:51: daily. [address] losartan 50 Yes 50mg Take 50 mg Univers mg tablet - by mouth ity of 01:51: daily. [address] losartan 50 Yes 50mg Take 50 mg Univers mg tablet - by mouth ity of 01:51: daily. [address] losartan 50 Yes 50mg Take 50 mg Univers mg tablet 10-21 by mouth ity of 01:51: daily. [address] ibuprofen Yes [id number] 600mg Take 1 U nivers 600 mg 8-30 tablet by ity of tablet 00:00: mouth [place] 00 every 6 Medical (six) Branch hours as needed for Pain (scale 1-3). chlorhexidi Yes [id number] Apply to Univers ne 4 % 8-30 area(s) ity of external 00:00: once daily [place] liquid 00 as needed Medical for Wound Branch care. ibuprofen Yes [id number] 600mg Take 1 U nivers 600 mg 8-30 tablet by ity of tablet 00:00: mouth [place] 00 every 6 Medical (six) Branch hours as needed for Pain (scale 1-3). chlorhexidi Yes [id number] Apply to Univers ne 4 % 8-30 area(s) ity of external 00:00: once daily [place] liquid 00 as needed Medical for Wound Branch care. ibuprofen Yes [id number] 600mg Take 1 U nivers 600 mg 8-30 tablet by ity of tablet 00:00: mouth [place] 00 every 6 Medical (six) Branch hours as needed for Pain (scale 1-3). chlorhexidi Yes [id number] Apply to Univers ne 4 % 8-30 area(s) ity of external 00:00: once daily [place] liquid 00 as needed Medical for Wound Branch care. ibuprofen Yes [id number] 600mg Take 1 U nivers 600 mg 8-30 tablet by ity of tablet 00:00: mouth [place] 00 every 6 Medical (six) Branch hours as needed for Pain (scale 1-3). chlorhexidi 2018- Yes [id number] Apply to Univers ne 4 % 8-30 area(s) ity of external 00:00: once daily [place] liquid 00 as needed Medical for Wound Branch care. ibuprofen Yes [id number] 600mg Take 1 U nivers 600 mg 8-30 tablet by ity of tablet 00:00: mouth [place] 00 every 6 Medical (six) Branch hours as needed for Pain (scale 1-3). chlorhexidi 2018-0 Yes [id number] Apply to Univers ne 4 % 8-30 area(s) ity of external 00:00: once daily [place] liquid 00 as needed Medical for Wound Branch care. cephALEXin 2019- No [id number] 500mg Take 1 Univers (KEFLEX) 8-30 - capsule by ity of 500 mg 00:00: 04:59 mouth 4 [place] capsule 00 :00 (four) Medical times Branch daily for 7 days. Vital Signs Vital Name Observation Time Observation Value Comments Source Systolic blood 2020-08-09 17:30:00 150 mm[Hg] Univer sity of pressure [place] [facility] Diastolic blood 2020-08-09 17:30:00 97 mm[Hg] Unive rsity of pressure [place] [facility] Heart rate 2020-08-09 17:30:00 96 /min Universi ty [facility] [place] [facility] Body temperature 2020-08-09 17:30:00 36.89 Ligia Univ ers[facility] [place] [facility] Respiratory rate 2020-08-09 17:30:00 18 /min Univ [facility] [place] [facility] Body weight 2020-08-09 17:30:00 77.111 kg [facility] [place] [facility] BMI 2020-08-09 17:30:00 25.85 kg/m2 [facility] [place] [facility] Oxygen saturation in 2020-08-09 17:30:00 97 /min University of Arterial blood by [facility] Pulse oximetry Branch Systolic blood 2020-08-09 17:30:00 150 mm[Hg] Univer sity of pressure [place] [facility] Diastolic blood 2020-08-09 17:30:00 97 mm[Hg] Unive rsity of pressure [place] [facility] Heart rate 2020-08-09 17:30:00 96 /min [facility]i ty [facility] [place] [facility] Body temperature 2020-08-09 17:30:00 36.89 [place] Univ [facility] [place] [facility] Respiratory rate 2020-08-09 17:30:00 18 /min Univ [facility] [place] [facility] Body weight 2020-08-09 17:30:00 77.111 kg [facility] [place] [facility] BMI 2020-08-09 17:30:00 25.85 kg/m2 [facility] [place] [facility] Oxygen saturation in 2020-08-09 17:30:00 97 /min University of Arterial blood by [facility] Pulse oximetry Branch Body weight 2020-03-10 01:06:00 77.111 kg [facility]i [facility] [place] [facility] BMI 2020-03-10 01:06:00 25.85 kg/m2 [facility] [place] [facility] Systolic blood 2020-03-10 01:05:00 110 mm[Hg] Univer sity of pressure [place] [facility] Diastolic blood 2020-03-10 01:05:00 78 mm[Hg] Unive rsity of pressure [place] [facility] Heart rate 2020-03-10 01:05:00 83 /min [facility] ty [facility] [place] [facility] Body temperature 2020-03-10 01:05:00 37.06 Ligia Univ [facility] [place] [facility] Respiratory rate 2020-03-10 01:05:00 18 /min Univ [facility] [place] [facility] Body height 2020-03-10 01:05:00 172.7 cm Universi ty [facility] [place] [facility] Oxygen saturation in 2020-03-10 01:05:00 100 /min University of Arterial blood by [place] [employer] [facility] bryan Pulse oximetry Branch Body weight 2020-03-10 01:06:00 77.111 kg [facility]i [facility] [place] [facility] BMI 2020-03-10 01:06:00 25.85 kg/m2 [facility] [place] [facility] Systolic blood 2020-03-10 01:05:00 110 mm[Hg] Univer sity of pressure [place] [facility] Diastolic blood 2020-03-10 01:05:00 78 mm[Hg] Unive rsity of pressure [place] [facility] Heart rate 2020-03-10 01:05:00 83 /min [facility]i ty [facility] [place] [facility] Body temperature 2020-03-10 01:05:00 37.06 Ligia Univ [facility] [place] [facility] Respiratory rate 2020-03-10 01:05:00 18 /min Univ ers[facility] [place] [facility] Body height 2020-03-10 01:05:00 172.7 cm Universi ty [facility] [place] [facility] Oxygen saturation in 2020-03-10 01:05:00 100 /min University of Arterial blood by [place] [employer] [facility] bryan Pulse oximetry Branch Body height 2018-10-21 01:06:00 167.6 cm [facility] [place] [facility] Body weight 2018-10-21 01:06:00 77.111 kg [facility] [place] [facility] BMI 2018-10-21 01:06:00 27.44 kg/m2 [facility] [place] [facility] Oxygen saturation in 2018-10-21 01:06:00 98 /min University of Arterial blood by [place] [employer] [place] bryan Pulse oximetry Branch Systolic blood 2018-10-21 01:06:00 134 mm[Hg] Univer sity of pressure [place] [facility] Diastolic blood 2018-10-21 01:06:00 77 mm[Hg] Unive rsity of pressure [place] [facility] Heart rate 2018-10-21 01:06:00 98 /min [facility]i ty [facility] [place] [facility] [place] Body temperature 2018-10-21 01:06:00 37.11 Ligia Univ [facility] [place] [facility] Respiratory rate 2018-10-21 01:06:00 20 /min Univ [facility] [place] [facility] Body height 2018-10-21 01:06:00 167.6 cm [facility]i ty [facility] [place] [facility] [place] Body weight 2018-10-21 01:06:00 77.111 kg [facility] [place] [facility] BMI 2018-10-21 01:06:00 27.44 kg/m2 Universi ty of [facility] Oxygen saturation in 2018-10-21 01:06:00 98 /min [facility] Arterial blood by [facility] Pulse oximetry Branch Systolic blood 2018-10-21 01:06:00 134 mm[Hg] Univer sity of pressure [place] [facility] Diastolic blood 2018-10-21 01:06:00 77 mm[Hg] Unive rsity of pressure [place] [facility] Heart rate 2018-10-21 01:06:00 98 /min Universi ty of [place] [facility] [place] Body temperature 2018-10-21 01:06:00 37.11 Ligia Univ ersity of [facility] Branch Respiratory rate 2018-10-21 01:06:00 20 /min [facility] Procedures Procedure Date / Time Performed Performing Clinician Sourc e URINALYSIS 2020-08-09 17:48:00 Tess Matute [facility] CONSENT/REFUSAL FOR 2020-08-09 17:15:05 Doctor Unassigned, No [facility] [place] DIAGNOSIS AND Name Medical Branch TREATMENT NOTICE OF PRIVACY 2020-03-10 00:50:22 Doctor Unassigned, No Univ ersity of [facility] Name Medical Branch CONSENT/REFUSAL FOR 2020-03-10 00:49:54 Doctor Unassigned, No [facility] [place] DIAGNOSIS AND Name Medical Branch TREATMENT NOTICE OF PRIVACY 2018-10-21 00:57:37 Doctor Unassigned, No Univ ersity of [facility] Name Medical Branch CONSENT/REFUSAL FOR 2018-10-21 00:56:48 Doctor Unassigned, No [facility] [place] DIAGNOSIS AND Name Medical Branch TREATMENT Encounters Start End Encounter Admission Attending Care Care Encounter Source Date/Time Date/Time Type Type Clinicians Facility Department ID 2020-08-09 2020-08-09 Emergency [facility] [id number] 12:33:00 13:51:00 Tess Guadarrama [id number].686 [place] [id number] 2020-08-09 2020-08-09 Emergency [facility] [id number] Univers 12:33:00 13:51:00 Tess Fraustoton [id number] i ty [address] [place] [address] [id number] [place] [id number] [place] 2020-08-09 2020-08-09 Emergency X RUST ERT [id number] Univers 12:17:00 12:17:00 ity of [facility] 2020-08-09 2020-08-09 Orders Doctor HUMPHREY [id number] 00:00:00 00:00:00 Only Unassigned, THAIS [id number] [place] [id number] 2020-08-09 2020-08-09 Orders Doctor HUMPHREY [id number] Univers 00:00:00 00:00:00 Only Unassigned, THAIS [id number] ity of [place] [address].686 [place] [id number] [facility] 009 Branch 2020-03-16 2020-03-16 Telephone MILAGRO Jurado [id number] Univers 00:00:00 00:00:00 Clarita PLASCENCIA [id number] i ty of [facility] 4.2.7.2.686 [place] as [id number] [facility] 019 Branch 2020-03-16 2020-03-16 Telephone MILAGRO Jurado [id number] 00:00:00 00:00:00 Clarita PLASCENCIA [id number] [facility] 4.2.7.2.686 [id number] 2020-03-09 2020-03-09 Emergency Elijah, RUST [id number] Univers 19:09:00 19:31:00 Geena Barney [place] [id number] i ty of [place] 4.2.7.2.686 [facility] [id number] [address] 2020-03-09 2020-03-09 Emergency Elijah, RUST [id number] 19:09:00 19:31:00 Geena Barney [place] [id number] [place] [address] [place] [address] [id number] 2020-03-09 2020-03-09 Emergency X ELIJAH, RUST ERT [id number] Univers 19:09:00 19:09:00 GEENA buchanan [facility] 2018-10-20 2018-10-20 Emergency [facility] [id number] [facility] 20:09:23 21:25:00 Kassandra Templeton [place] [id number] ity [facility] 4.2.7.2.686 [facility] [id number] [address] 2018-10-20 2018-10-20 Emergency [facility] [id number] 20:09:23 21:25:00 Kassandra Templeton [place] [id number] [place] [address] [place] [address] [id number] Results Test Description Test Time Test Comments Results Result Comments Source Urinalysis 2020-08-09 18:03:51 Test Item Value Reference Range Interpretation Comme nts APPEARANCE (test code = Clear Clear 1908102343) COLOR (test code = 9387092300) Yellow Yellow PH (test code = 0903011277) 4.8-8.0 SP GRAVITY (test code = 1.003-1.030 3715010171) GLU U QUAL (test code = Normal Normal 2409823962) BLOOD (test code = 5277942618) Negative Negative KETONES (test code = 4366581416) Negative Negative PROTEIN (test code = 2887-8) Negative Negative UROBILIN (test code = Normal Normal 7149820688) BILIRUBIN (test code = Negative Negative 9810351707) NITRITE (test code = 9738333382) Negative Negative [facility] MED (test code = Negative Negative 5535226619) RBC/HPF (test code = 6250121238) See_Comment [Automated message] The system which ge nerated this result transmit serina reference range: 0 - 3 HP F. The reference range was not used to interpret th is result as normal/abnormal . WBC/HPF (test code = 5679117743) See_Comment [Automated message] The system which ge nerated this result transmit serina reference range: 0 - 5 HP F. The reference range was not used to interpret th is result as normal/abnormal . BACTERIA (test code = Negative Negative 2108058601) MUCOUS (test code = 4501946246) Slight Negative LPF A SQ EPITH (test code = <1 HPF 9491891929) Lab Interpretation (test code = Abnormal 24043-0) [facility]
[2021-03-10] MEDS ORDERED: NA CHLORIDE 0.9% 2,000 ML ONE (00:30)
[2021-03-10] MEDS ORDERED: METOPROLOL TARTRATE 5 MG/5 ML INJ IV ONE (00:31)
[2021-03-10 00:52] LABS: Absolute Lymphocytes (CBC) 2.8 K/uL (0.7-4.9); Hematocrit 51.2 % (39.6-49.0); Lymphocytes % 25.6 % (15.3-44.8); MPV 8.2 fL (7.6-11.3); RBC Red Blood Cell Count 5.81 M/uL (4.33-5.43)
[2021-03-10 00:54] LABS: Protime INR 1.03
[2021-03-10 01:11] LABS: ALT/SGPT 31 U/L (12-78); AST/SGOT 13 U/L (15-37); Albumin 4.4 g/dL (3.4-5.0); Alkaline Phosphatase 77 U/L (45-117); BUN Blood Urea Nitrogen 20 mg/dL (7-18); Bicarbonate 24 mmol/L (21-32); Bilirubin Direct 0.3 mg/dL (0-0.2); Bilirubin Total 1.5 mg/dL (0.2-1.0); Glucose Level 95 mg/dL (74-106); Potassium 3.4 mmol/L (3.5-5.1); Protein, Total 8.8 g/dL (6.4-8.2); Sodium Level 134 mmol/L (136-145)
[2021-03-10] MEDS ORDERED: LORazepam 2 MG/ML VIAL ONE (02:02)
[2021-03-10 02:13] LABS: Urine Blood Negative (Negative); Urine Glucose Negative (Negative); Urine Protein Negative (Negative); Urine pH 5.5 (5.0-7.0)
[2021-03-10] MEDS ORDERED: POTASSIUM 25 MEQ EFFERV TAB ONE (02:18)
[2021-03-10] MEDS ORDERED: POTASSIUM CL SA 10 MEQ TAB PO ONE (02:20)
[2021-03-10 02:39] LABS: Barbiturates NEGATIVE (NEGATIVE); Benzodiazepines NEGATIVE (NEGATIVE); Cocaine POSITIVE (NEGATIVE); METHAMPHETAM POSITIVE (NEGATIVE); Methadone NEGATIVE (NEGATIVE); Opiates NEGATIVE (NEGATIVE); Phencyclidine NEGATIVE (NEGATIVE); THC Cannibis NEGATIVE (NEGATIVE)
--- NOTE | 2021-03-10 04:59 | EDPHYS ---
Physician Documentation [facility] Name: Vic Hernandez Age: 30 yrs Sex: Male : 1990 Arrival Date: 03/10/2021 Time: 00:08 Bed 28 Private MD: ED Physician Woodrow Hendrix HPI: 03/10 00:19 This 30 yrs old Male presents to ER via EMS with unknown complaint. pkl 00:19 The patient or guardian reports chest pain that is located primarily in the substernal pkl area. The pain does not radiate. Associated signs and symptoms: Pertinent positives: palpitations. The chest pain is described as tightness. Patient admits to taking Meth for the past 3 days. Historical: - Allergies: 00:11 No Known Allergies; kd3 - Home Meds: 00:11 Norvasc 5 mg Oral tab 1 tab once daily for hypertension [Active]; Hydroxyzine Pamoate kd3 Oral for anxiety [Active]; - PMHx: 00:11 ADD/ADHD; Hypertension; Heart Arrythmia; Anxiety; kd3 - PSHx: 00:11 None; kd3 - Immunization history:: Adult Immunizations up to date, Client reports having NOT received the Covid vaccine. - Social history:: Smoking status: Patient reports the use of cigarette tobacco products, denies chronic smoking, but will smoke occasionally. ROS: 00:19 Eyes: Negative for injury, pain, redness, and discharge, ENT: Negative for injury, pkl pain, and discharge, Neck: Negative for injury, pain, and swelling. 00:19 Cardiovascular: Positive for chest pain, palpitations. 00:19 Respiratory: Negative for cough, shortness of breath. 00:19 Abdomen/GI: Negative for abdominal pain, nausea, vomiting, and diarrhea. 00:19 Back: Negative for acute changes. 00:19 : Negative for urinary symptoms. 00:19 MS/extremity: Negative for acute changes. 00:19 Skin: Negative for rash. 00:19 Neuro: Negative for altered mental status, loss of consciousness. Exam: 00:19 Head/Face: Normocephalic, atraumatic. Eyes: Pupils equal round and reactive to light, pkl extra-ocular motions intact. Lids and lashes normal. Conjunctiva and sclera are non-icteric and not injected. Cornea within normal limits. Periorbital areas with no swelling, redness, or edema. ENT: Nares patent. No nasal discharge, no septal abnormalities noted. Tympanic membranes are normal and external auditory canals are clear. Oropharynx with no redness, swelling, or masses, exudates, or evidence of obstruction, uvula midline. Mucous membranes moist. Neck: Trachea midline, no thyromegaly or masses palpated, and no cervical lymphadenopathy. Supple, full range of motion without nuchal rigidity, or vertebral point tenderness. No Meningismus. Chest/axilla: Normal chest wall appearance and motion. Nontender with no deformity. No lesions are appreciated. 00:19 Cardiovascular: Rate: tachycardic, actual rate is 111 bpm, Rhythm: regular. 00:19 Respiratory: the patient does not display signs of respiratory distress, Respirations: normal, Breath sounds: are clear throughout. 00:19 Abdomen/GI: Bowel sounds: normal, Palpation: abdomen is soft and non-tender, in all quadrants. 00:19 Back: Exam negative for acute changes. 00:19 : Exam negative for acute changes. 00:19 Musculoskeletal/extremity: Exam is negative for acute changes. 00:19 Skin: Exam negative for rash. 00:19 Neuro: Orientation: is normal, Mentation: is normal, Cranial nerves: grossly normal, Motor: is normal. Vital Signs: 00:08 BP 144 / 108; Pulse 111; Resp 16; Temp 98.1; Pulse Ox 98% on R/A; Weight 77.56 kg; kd3 Height 5 ft. 7 in. (170.18 cm); Pain 0/10; 01:36 BP 170 / 98; Pulse 97; Resp 18; Pulse Ox 99% on R/A; kd3 02:26 BP 151 / 111; Pulse 103; Resp 11; Pulse Ox 100% ; kd3 03:29 BP 127 / 94; Pulse 88; Resp 17; Pulse Ox 98% on R/A; kd3 04:01 BP 120 / 98; Pulse 94; Resp 18; Pulse Ox 99% on R/A; kd3 04:24 BP 118 / 81; Pulse 81; Resp 16; Pulse Ox 97% ; kd3 04:50 BP 111 / 82; Pulse 80; Resp 17; Pulse Ox 94% on R/A; kd3 05:18 BP 116 / 79; Pulse 81; Resp 16; Pulse Ox 95% on R/A; kd3 00:08 Body Mass Index 26.78 (77.56 kg, 170.18 cm) kd3 MDM: 00:12 Patient medically screened. pkl 04:56 Data reviewed: vital signs, nurses notes, lab test result(s), EKG. ED course: Patient pkl feeling better. Advised to follow up with PCP in 1 to 2 days. To return if necessary. Patient understood instructions. 03/10 00:17 Order name: Acetaminophen; Complete Time: pkl 03/10 00:17 Order name: Basic Metabolic Panel; Complete Time: pkl 03/10 00:17 Order name: CBC with Diff; Complete Time: pkl 03/10 00:17 Order name: ETOH Level; Complete Time: pkl 03/10 00:17 Order name: Hepatic Function; Complete Time: pkl 03/10 00:17 Order name: PT-INR; Complete Time: pkl 03/10 00:17 Order name: Ptt, Activated; Complete Time: pkl 03/10 00:17 Order name: Salicylate; Complete Time: :38 pkl 03/10 00:17 Order name: Urine Drug Screen; Complete Time: 02:46 pkl 03/10 00:17 Order name: Troponin High Sensitivity; Complete Time: :38 pkl 03/10 02:13 Order name: Urine Dipstick-Ancillary; Complete Time: 02:46 EDMS 03/10 00:17 Order name: EKG; Complete Time: 00:17 pkl 03/10 00:17 Order name: EKG - Nurse/Tech; Complete Time: 00:24 pkl 03/10 00:17 Order name: IV Saline Lock; Complete Time: 00:24 pkl 03/10 00:17 Order name: Labs collected and sent; Complete Time: 00:24 pkl 03/10 00:17 Order name: Suicide Screening ([place]); Complete Time: 02:27 pkl 03/10 00:17 Order name: Urine Dipstick-Ancillary (obtain specimen); Complete Time: 02:16 pkl Administered Medications: 00:39 Drug: Lopressor (metoprolol) 5 mg Route: IVP; Site: right antecubital; kd3 00:40 Drug: NS 0.9% 1000 ml Route: IV; Rate: 1000 ml; Site: right antecubital; kd3 02:16 Drug: Ativan (LORazepam) 1 mg Route: IVP; Site: right antecubital; kd3 02:20 Drug: K-Dur (potassium chloride) 20 mEq Route: PO; kd3 02:53 Not Given (Duplicate Order): NS 0.9% 1000 ml IV at 125 ml/hr continuous pkl 04:13 Drug: NS 0.9% 1000 ml Route: IV; Rate: 1000 ml; Site: right antecubital; kd3 Disposition Summary: 03/10/21 04:59 Discharge Ordered Location: Home pkl Problem: new pkl Symptoms: have improved pkl Condition: Stable pkl Diagnosis - Substance abuse pkl Followup: pkl - With: Private Physician - When: 1 - 2 days - Reason: Re-evaluation by your physician Forms: - Medication Reconciliation Form pkl - Thank You Letter pkl - Antibiotic Education pkl - Prescription Opioid Use pkl Signatures: Dispatcher [employer] EDWoodrow Jones MD MD pkl Roseann Mccord RN RN kd3
--- NOTE | 2021-03-10 04:59 | ER ---
Nurse's Notes [facility] [place] Name: Vic Hernandez Age: 30 yrs Sex: Male : 1990 Arrival Date: 03/10/2021 Time: 00:08 Bed 28 Private MD: Diagnosis: Substance abuse Presentation: 03/10 00:08 Chief complaint: Patient states: [facility] STATES PATIENT IS A 30 Y/O MALE WHO EAS ON A kd3 3 DAY BINGE OF METH USE. TOOK HIS LAST HIT AT 2100 LAST NIGHT. PT STARTED FEELING CHEST PAINS AND HEART RACING AND CALLED 911. Coronavirus screen: Vaccine status: Patient reports being unvaccinated. At this time, the client does not indicate any symptoms associated with coronavirus-19. Ebola Screen: No symptoms or risks identified at this time. Initial Sepsis Screen: Does the patient meet any 2 criteria? No. Patient's initial sepsis screen is negative. Does the patient have a suspected source of infection? No. Patient's initial sepsis screen is negative. Risk Assessment: Do you want to hurt yourself or someone else? Patient reports no desire to harm self or others. Onset of symptoms was March 10, 2021. 00:08 Method Of Arrival: EMS: [facility] kd3 00:08 Acuity: ARISTIDES 3 kd3 Triage Assessment: 00:11 General: Appears uncomfortable, Behavior is anxious. Pain: Complains of pain in kd3 anterior aspect of left upper chest. Historical: - Allergies: 00:11 No Known Allergies; kd3 - Home Meds: 00:11 Norvasc 5 mg Oral tab 1 tab once daily for hypertension [Active]; Hydroxyzine Pamoate kd3 Oral for anxiety [Active]; - PMHx: 00:11 ADD/ADHD; Hypertension; Heart Arrythmia; Anxiety; kd3 - PSHx: 00:11 None; kd3 - Immunization history:: Adult Immunizations up to date, Client reports having NOT received the Covid vaccine. - Social history:: Smoking status: Patient reports the use of cigarette tobacco products, denies chronic smoking, but will smoke occasionally. Screenin:15 Abuse screen: Denies threats or abuse. Denies injuries from another. Nutritional kd3 screening: No deficits noted. Tuberculosis screening: No symptoms or risk factors identified. Fall Risk IV access (20 points). Assessment: 01:35 Reassessment: Patient is alert, oriented x 3, equal unlabored respirations, skin kd3 warm/dry/pink. see triage notes- pt with better hr and bp Patient states feeling better. General: Appears in no apparent distress. Pain: Denies pain. 04:49 Reassessment: Patient and/or family updated on plan of care and expected duration. Pain kd3 level reassessed. Patient is alert, oriented x 3, equal unlabored respirations, skin warm/dry/pink. Patient states feeling better. Neuro: Level of Consciousness is awake, alert, obeys commands, Oriented to person, place, time, situation, Appropriate for age. Cardiovascular: Rhythm is regular. Respiratory: Airway is patent Respiratory effort is even, unlabored. Vital Signs: 00:08 BP 144 / 108; Pulse 111; Resp 16; Temp 98.1; Pulse Ox 98% on R/A; Weight 77.56 kg; kd3 Height 5 ft. 7 in. (170.18 cm); Pain 0/10; 01:36 BP 170 / 98; Pulse 97; Resp 18; Pulse Ox 99% on R/A; kd3 02:26 BP 151 / 111; Pulse 103; Resp 11; Pulse Ox 100% ; kd3 03:29 BP 127 / 94; Pulse 88; Resp 17; Pulse Ox 98% on R/A; kd3 04:01 BP 120 / 98; Pulse 94; Resp 18; Pulse Ox 99% on R/A; kd3 04:24 BP 118 / 81; Pulse 81; Resp 16; Pulse Ox 97% ; kd3 04:50 BP 111 / 82; Pulse 80; Resp 17; Pulse Ox 94% on R/A; kd3 05:18 BP 116 / 79; Pulse 81; Resp 16; Pulse Ox 95% on R/A; kd3 00:08 Body Mass Index 26.78 (77.56 kg, 170.18 cm) kd3 ED Course: 00:08 Patient arrived in ED. la1 00:08 Roseann Mccord, RICKY is Primary Nurse. kd3 00:11 Triage completed. kd3 00:12 Woodrow Hendrix MD is Attending Physician. pkl 00:15 Placed in gown. campus monitor on. Pulse ox on. NIBP on. kd3 00:15 Inserted saline lock: 20 gauge in right antecubital area, using aseptic technique. kd3 01:36 Arm band placed on right wrist. kd3 05:26 No provider procedures requiring assistance completed. kd3 05:41 IV discontinued, intact, bleeding controlled, No redness/swelling at site. Pressure kd3 dressing applied. Administered Medications: 00:39 Drug: Lopressor (metoprolol) 5 mg Route: IVP; Site: right antecubital; kd3 00:40 Drug: NS 0.9% 1000 ml Route: IV; Rate: 1000 ml; Site: right antecubital; kd3 02:16 Drug: Ativan (LORazepam) 1 mg Route: IVP; Site: right antecubital; kd3 02:20 Drug: K-Dur (potassium chloride) 20 mEq Route: PO; kd3 02:53 Not Given (Duplicate Order): NS 0.9% 1000 ml IV at 125 ml/hr continuous pkl 04:13 Drug: NS 0.9% 1000 ml Route: IV; Rate: 1000 ml; Site: right antecubital; kd3 Outcome: 04:59 Discharge ordered by . pkl 05:26 Discharged to home ambulatory. kd3 05:26 Condition: stable 05:26 Discharge instructions given to patient, Instructed on discharge instructions, follow up and referral plans. Demonstrated understanding of instructions, follow-up care. 05:41 Patient left the ED. kd3 Signatures: Woodrow Hendrix MD MD pkl Giuseppe Ayala, LAMP ASSEMBLER-C LAMP ASSEMBLER-Cla1 Roseann Mccord, RN RN kd3
[2021-03-10 05:49] VITALS: TEMP 98.1
[2021-03-10 05:58] VITALS: BP 116/79; O2SAT 95
--- NOTE | 2021-03-11 07:28 | EKG ---
Test Date: 2021-03-09 Test Time: 23:57:32 Shoe Puller: MEASUREMENT RESULTS: Intervals: Rate: 102 LA: 188 QRSD: 96 QT: 328 QTc: 427 [place]: P: 69 LA: 188 QRS: 46 T: -16 INTERPRETIVE STATEMENTS: Sinus tachycardia Cannot rule out Anterior infarct, age undetermined T wave abnormality, consider inferior ischemia Abnormal ECG Compared to ECG 08/25/2020 07:08:56 Myocardial infarct finding now present T-wave abnormality now present Possible ischemia now present Sinus rhythm no longer present Electronically Signed On 03-11-21 07:26:[address] by Keyur Keane
== END 2021-03-10 05:41 | disposition home or self-care (01) ==
LOC: ER 23:54
DX: R00.2 Palpitations (principal); F19.10 Other psychoactive substance abuse, uncomplicated; I10 Essential (primary) hypertension; F41.9 Anxiety disorder, unspecified; F17.210 Nicotine dependence, cigarettes, uncomplicated
CPT/HCPCS: 36415; 80048; 80076; 80307; 80320; 80329; 81003; 84484; 85025; 85610; 85730; 93005; 96374; 96375; 99284; J7030

== ENCOUNTER 2021-10-10 10:02 | Inpatient (IN) | payer SELFPAY ==
--- OUTSIDE RECORDS SUMMARY | 2021-10-10 10:08 | XMS REPORT | Continuity of Care Document ---
:1990 Author Organization [facility] t Address [address] [place] [address] Care Team Providers Name Role Phone Tess Boggs Attending Clinician Doctor Unassigned, [place] Attending Clinician Unavailable Clarita Jurado RN Attending Clinician Unavailable Geena Burns Attending Clinician GEENA NAVA Attending Clinician Unavailable Kassandra Ybarra NP Attending Clinician Problems Condition Condition Condition Status Onset Resolution Last Treating Co mments Source Name Details Category Date Date Treatment Clinician Date No known No known Disease Unive rs active active ity of problems problems [facility] Allergies, Adverse Reactions, Alerts Allergy Allergy Status Severity Reaction(s) Onset Inactive Treating Comm ents Source Name Type Date Date Clinician NO KNOWN Drug Active Univers ALLERGIE Class ity of S [facility] Social History Social Habit Start Date Stop Date Quantity Comments Source Exposure to Not sure [facility] SARS-CoV-2 (event) Medica l Branch Sex Assigned At [birth year] [facility] 00:00:00 00:00:00 [facility] Smoking Status Start Date Stop Date Source Unknown if ever smoked [facility] Medications Ordered Filled Start Stop Current Ordering Indication Dosage Frequency Signature Comments Components Source Medication Medication Date Date Medication? Clinician (SIG) Name Name hydrOXYzine 2020- No 25mg 25 mg, Uni vers (ATARAX) 6-19 06-19 Oral, ity of tablet 25 18:45: 17:59 ONCE, [place] 00 :00 dose, [facility] Medical 08/09/20 at Branch 1345, JOEL ondansetron 2020- No 4mg 4 mg, Univ ers (ZOFRAN-ODT 08-09 Oral, ity of ) 18:45: 17:59 ONCE, 1 [place] disintegrat 00 :00 dose, Sat Med ical ing tablet 08/09/20 at [facility] 4 mg 1345, Routine ondansetron Yes [id number] 4mg Take 1 Univers (ZOFRAN 08-09 tablet by ity of ODT) 4 mg 00:00: mouth [place] disintegrat 00 every 8 Medic al ing tablet (eight) Branch hours as needed for Nausea and Vomiting (N/V). cephALEXin No 500mg 500 mg, Un yuliet (KEFLEX) 10-21 Oral, ity of capsule 500 02:30: 01:42 [place] 1 [place] :[place] dose, Tue [facility] 10/20/18 at Branch 2130, JOEL
Re ason for Anti-Infec tive: Documented Infection< br>Documen serina Infection Site: Skin / Soft Tissue
Duration of Therapy: 7 days ibuprofen 2018- No 800mg 800 mg, Uni vers (IBU) 10-21 Oral, ity of tablet 800 02:30: 01:42 ONCE, 1 [place] mg 00 :00 dose, [facility] 10/20/18 at Branch 2130, JOEL losartan 50 Yes 50mg Take 50 mg Univers mg tablet 10-21 by mouth ity of 01:51: daily. [address] losartan 50 Yes 50mg Take 50 mg Univers mg tablet 10-21 by mouth ity of 01:51: daily. [address] losartan 50 Yes 50mg Take 50 mg Univers mg tablet 10-21 by mouth ity of 01:51: daily. [address] losartan 50 Yes 50mg Take 50 mg Univers mg tablet 10-21 by mouth ity of 01:51: daily. [address] losartan 50 Yes 50mg Take 50 mg Univers mg tablet 10-21 by mouth ity of 01:51: daily. [address] ibuprofen Yes [id number] 600mg Take 1 U nivers 600 mg 8-30 tablet by ity of tablet 00:00: mouth [place] 00 every 6 Medical (six) Branch hours as needed for Pain (scale 1-3). chlorhexidi Yes [id number] Apply to Univers ne 4 % 8-30 area(s) ity of external 00:00: once daily [place] liquid 00 as needed Medical for Wound Branch care. ibuprofen Yes [id number] 600mg Take 1 U nivers 600 mg 8-30 tablet by ity of tablet 00:00: mouth [place] 00 every 6 Medical (six) Branch hours as needed for Pain (scale 1-3). chlorhexidi Yes [id number] Apply to Univers ne 4 % 8-30 area(s) ity of external 00:00: once daily [place] liquid 00 as needed Medical for Wound Branch care. ibuprofen Yes [id number] 600mg Take 1 U nivers 600 mg 8-30 tablet by ity of tablet 00:00: mouth [place] 00 every 6 Medical (six) Branch hours as needed for Pain (scale 1-3). chlorhexidi Yes [id number] Apply to Univers ne 4 % 8-30 area(s) ity of external 00:00: once daily [place] liquid 00 as needed Medical for Wound Branch care. ibuprofen Yes [id number] 600mg Take 1 U nivers 600 mg 8-30 tablet by ity of tablet 00:00: mouth [place] 00 every 6 Medical (six) Branch hours as needed for Pain (scale 1-3). chlorhexidi 2018-0 Yes [id number] Apply to Univers ne 4 % 8-30 area(s) ity of external 00:00: once daily [place] liquid 00 as needed Medical for Wound Branch care. ibuprofen Yes [id number] 600mg Take 1 U nivers 600 mg 8-30 tablet by ity of tablet 00:00: mouth [place] 00 every 6 Medical (six) Branch hours as needed for Pain (scale 1-3). chlorhexidi 2019-0 Yes [id number] Apply to Univers ne 4 % 8-30 area(s) ity of external 00:00: once daily [place] liquid 00 as needed Medical for Wound Branch care. cephALEXin 2019- No [id number] 500mg Take 1 Univers (KEFLEX) 8-30 10-28 capsule by ity of 500 mg 00:00: 04:59 mouth 4 [place] capsule 00 :00 (four) Medical times Branch daily for 7 days. Vital Signs Vital Name Observation Time Observation Value Comments Source Systolic blood 2020-08-09 17:30:00 150 mm[Hg] Univer sity of pressure [place] [facility] Diastolic blood 2020-08-09 17:30:00 97 mm[Hg] Unive rsity of pressure [place] [facility] Heart rate 2020-08-09 17:30:00 96 /min Universi ty [facility] [place] [facility] Body temperature 2020-08-09 17:30:00 36.89 Ligia Univ ersity [facility] [place] [facility] Respiratory rate 2020-08-09 17:30:00 18 /min Univ ersity [facility] [place] [facility] Body weight 2020-08-09 17:30:00 77.111 kg [facility]i ty [facility] [place] [facility] BMI 2020-08-09 17:30:00 25.85 kg/m2 [facility] [place] [facility] Oxygen saturation in 2020-08-09 17:30:00 97 /min University of Arterial blood by [facility] Pulse oximetry Branch Systolic blood 2020-08-09 17:30:00 150 mm[Hg] Univer sity of pressure [place] [facility] Diastolic blood 2020-08-09 17:30:00 97 mm[Hg] Unive rsity of pressure [place] [facility] Heart rate 2020-08-09 17:30:00 96 /min [facility]i ty [facility] [place] [facility] Body temperature 2020-08-09 17:30:00 36.89 Ligia Univ ers[facility] [place] [facility] Respiratory rate 2020-08-09 17:30:00 18 /min Univ ers[facility] [place] [facility] Body weight 2020-08-09 17:30:00 77.111 kg [facility] [place] [facility] BMI 2020-08-09 17:30:00 25.85 kg/m2 [facility] [place] [facility] Oxygen saturation in 2020-08-09 17:30:00 97 /min University of Arterial blood by [facility] Pulse oximetry Branch Body weight 2020-03-10 01:06:00 77.111 kg [facility]i ty [facility] [place] [facility] BMI 2020-03-10 01:06:00 25.85 kg/m2 [facility] [place] [facility] Systolic blood 2020-03-10 01:05:00 110 mm[Hg] Univer sity of pressure [place] [facility] Diastolic blood 2020-03-10 01:05:00 78 mm[Hg] Unive rsity of pressure [place] [facility] Heart rate 2020-03-10 01:05:00 83 /min Universi ty [facility] [place] [facility] Body temperature 2020-03-10 01:05:00 37.06 Ligia Univ ers[facility] [place] [facility] Respiratory rate 2020-03-10 01:05:00 18 /min Univ ersity [facility] [place] [facility] Body height 2020-03-10 01:05:00 172.7 cm Universi ty [facility] [place] [facility] Oxygen saturation in 2020-03-10 01:05:00 100 /min University of Arterial blood by [place] [employer] bryan Pulse oximetry Branch Body weight 2020-03-10 01:06:00 77.111 kg Universi ty [facility] [place] [facility] BMI 2020-03-10 01:06:00 25.85 kg/m2 [facility] [place] [facility] Systolic blood 2020-03-10 01:05:00 110 mm[Hg] Univer sity of pressure [place] [facility] Diastolic blood 2020-03-10 01:05:00 78 mm[Hg] Unive rsity of pressure [place] [facility] Heart rate 2020-03-10 01:05:00 83 /min Universi ty [facility] [place] [facility] Body temperature 2020-03-10 01:05:00 37.06 Ligia Univ ers[facility] [place] [facility] Respiratory rate 2020-03-10 01:05:00 18 /min Univ ersity [facility] [place] [facility] Body height 2020-03-10 01:05:00 172.7 cm Universi ty [facility] [place] [facility] Oxygen saturation in 2020-03-10 01:05:00 100 /min University of Arterial blood by [place] [employer] bryan Pulse oximetry Branch Body temperature 2018-10-21 01:06:00 37.11 Ligia Univ [facility] [place] [facility] Respiratory rate 2018-10-21 01:06:00 20 /min Univ ers[facility] [place] [facility] Body height 2018-10-21 01:06:00 167.6 cm [facility]i ty [facility] [place] [facility] Body weight 2018-10-21 01:06:00 77.111 kg [facility] [place] [facility] BMI 2018-10-21 01:06:00 27.44 kg/m2 [facility]i ty [facility] [place] [facility] [place] Oxygen saturation in 2018-10-21 01:06:00 98 /min University of Arterial blood by [facility] Pulse oximetry Branch Systolic blood 2018-10-21 01:06:00 134 mm[Hg] Univer sity of pressure [place] [facility] Diastolic blood 2018-10-21 01:06:00 77 mm[Hg] Unive rsity of pressure [facility] Branch Heart rate 2018-10-21 01:06:00 98 /min Universi ty of [facility] Body temperature 2018-10-21 01:06:00 37.11 Ligia Univ ersity of [place] [facility] Respiratory rate 2018-10-21 01:06:00 20 /min Univ ersity of [facility] Branch Body height 2018-10-21 01:06:00 167.6 cm Universi ty of [place] [facility] [place] Body weight 2018-10-21 01:06:00 77.111 kg [facility]i ty [facility] [place] [facility] [place] BMI 2018-10-21 01:06:00 27.44 kg/m2 Universi ty [facility] [place] [facility] [place] Oxygen saturation in 2018-10-21 01:06:00 98 /min University of Arterial blood by [facility] Pulse oximetry Branch Systolic blood 2018-10-21 01:06:00 134 mm[Hg] Univer sity of pressure [facility] Diastolic blood 2018-10-21 01:06:00 77 mm[Hg] Unive rsity of pressure [place] [facility] Heart rate 2018-10-21 01:06:00 98 /min [facility]i ty [facility] [place] [facility] [place] Procedures Procedure Date / Time Performed Performing Clinician Sourc e URINALYSIS 2020-08-09 17:48:00 Tess Matute [facility] CONSENT/REFUSAL FOR 2020-08-09 17:15:05 Doctor Unassigned, No Un [facility] [place] DIAGNOSIS AND Name Medical Branch TREATMENT NOTICE OF PRIVACY 2020-03-10 00:50:22 Doctor Unassigned, No Univ ersity of [facility] [place] [facility] Name Medical Branch CONSENT/REFUSAL FOR 2020-03-10 00:49:54 Doctor Unassigned, No Un [facility] [place] DIAGNOSIS AND Name Medical Branch TREATMENT NOTICE OF PRIVACY 2018-10-21 00:57:37 Doctor Unassigned, No Univ ersity of [facility] [place] [facility] Name Medical Branch CONSENT/REFUSAL FOR 2018-10-21 00:56:48 [facility] T[facility] Encounters Start End Encounter Admission Attending Care Care Encounter Source Date/Time Date/Time Type Type Clinicians Facility Department ID 2020-08-09 2020-08-09 Emergency [facility], [facility] [id number] [facility] [place] [facility] 12:33:00 13:51:00 Tess Guadarrama [id number] i ty of [place] 4.2.7.2.686 [facility] [id number] [facility] 084 Branch 2020-08-09 2020-08-09 Emergency [place], [facility] [id number] 12:33:00 13:51:00 Tess Guadarrama [id number] [place] 4.2.7.2.686 [place] [id number] 2020-08-09 2020-08-09 Emergency X [facility] ERT [id number] Univers 12:17:00 12:17:00 ity of [facility] 2020-08-09 2020-08-09 Orders Doctor MILAGRO [id number] Univers 00:00:00 00:00:00 Only UnassignedTHAIS [id number] ity of [place] [address]686 [place] as [id number] [facility] 009 Branch 2020-08-09 2020-08-09 Orders Doctor HUMPHREY [id number] 00:00:00 00:00:00 Only UnassignedTHAIS [id number] [place] [address]686 [id number] 2020-03-16 2020-03-16 Telephone MILAGRO Jurado [id number] [facility] [place] [facility] 00:00:00 00:00:00 Clarita PLASCENCIA 350.1.13.10 i ty of [facility] 4.2.7.2.686 [place] as [id number] [facility] 019 Branch 2020-03-16 2020-03-16 Telephone MILAGRO Jurado [id number] 00:00:00 00:00:00 Clarita PLASCENCIA [id number] [facility] 4.2.7.2.686 [id number] 2020-03-09 2020-03-09 Emergency [facility] [id number] Univers 19:09:00 19:31:00 Geena Guadarrama [id number] i ty [facility] 4.2.7.2.686 [facility] [id number] [address] 2020-03-09 2020-03-09 Emergency [facility] [id number] 19:09:00 19:31:00 Geena Guadarrama [id number] [place] [address] [place] [address] [id number] 2020-03-09 2020-03-[address] [facility] ERT [id number] Univers 19:09:00 19:09:00 GEENA buchanan [facility] 2018-10-20 2018-10-20 Emergency [facility] [id number] [facility] [place] [facility] 20:09:23 21:25:00 Kassandra Guadarrama [id number] ity [facility] [address] [place] [id number] 2018-10-20 2018-10-20 [facility] [id number] 20:09:23 21:25:00 Kassandra Guadarrama [id number] [place] [address] [place] [address] [phone] [id number] Results Test Description Test Time Test Comments Results Result Comments Source LIPID PANEL 2021-02-28 04:18:59 Test Item Value Reference Range Interpretation Comme nts CHOLESTEROL (test code = 2210) 136 MG/DL <200 TRIGLYCERIDES (test code = 2232) 203 MG/DL <150 H HDL CHOLESTEROL (test code = 31 MG/DL >39 L 2220) CALC LDL CHOL (test code = 2237) 76 MG/DL <100 NOTE: CALCULATED LDL IS BASED ON CY-VAZQUEZ METHOD WHICHINCLUDES A DJUSTABLE TRIGLYCERIDE:VL DL CHOLESTEROL RATIO.THIS FACT OR VARIES BY MEASURED TRIGLY CERIDE AND NON-HDLCHOLESTE ROL CONCENTRATIONS WITH INCREASED CALCULATED LDL SEENIN HIGHER T RIGLYCERIDE OR LOWER NON-HDL S PECIMENS. FOR MOREINFORMATION , SEE CLIENT ANNOUNCEMENT AT [email or web address] RATIO LDL/HDL (test code = 2.45 RATIO <3.55 8) COMPREHENSIVE METABOLIC [id number] 04:18:59 Test Item Value Reference Range Interpretation Comments GLUCOSE (test code = 102 MG/DL 70-99 H 2216) BUN (test code = 22 MG/DL 6-20 H 2207) CREATININE (test 1.27 MG/DL 0.80-1.40 EFFECTIVE code = 2214) 02/02/2021, [facility] HAS IMPLEMENTED THE NKF-ASN RECOMME NDED KD-EPI EGF R REFIT CALCULATI ON THAT DOES NOT I NCLUDE A COEFFICIENT FORRACE. FOR MO RE INFORMATION, SE E ANNOUNCEMENT [email or web address] eGFR (2020 CKD-EPI) 77 >60 (test code = 46272) ML/MIN/1.73 CALC BUN/CREAT (test 17 RATIO 6-28 code = 2235) SODIUM (test code = 140 MEQ/L 035-192 4706) POTASSIUM (test code 4.3 MEQ/L 3.5-5.4 = 2228) CHLORIDE (test code 101 MEQ/L 95-107 = 2215) CARBON DIOXIDE (test 28 MEQ/L 19-31 code = 2206) CALCIUM (test code = 10.2 MG/DL 8.5-10.5 2208) PROTEIN, TOTAL (test 7.5 G/DL 6.1-8.3 code = 2229) ALBUMIN (test code = 4.7 G/DL 3.5-5.2 2200) CALC GLOBULIN (test 2.8 G/DL 1.9-3.7 code = 2240) CALC A/G RATIO (test 1.7 RATIO 1.0-2.6 code = 2234) BILIRUBIN, TOTAL 0.7 MG/DL See_Comment [Automated message] (test code = 2207) The syste m which generated this result transmitted ref erence range: <=1.2. T he reference range was not used to int erpret this result as normal/abnormal . ALKALINE PHOSPHATASE 75 U/L 40-112 (test code = 2204) AST (test code = 14 U/L 9-50 8) ALT (test code = 19 U/L 5-50 UNLESS OTH ERWISE 9) INDICATED, ALL TESTING PERFORM ED [facility], [place]. [address] [facility] [place] [address] [facility] DIRECTOR: SHAWN BHATIA M.D. IA NUMBER [id number] CAP ACCREDITATION N O. [id number] 18:03:51 Test Item Value Reference Range Interpretation Comments APPEARANCE (test code = Clear Clear [id number]) COLOR (test code = Yellow Yellow 6338200047) PH (test code = 4.8-8.0 9669161946) SP GRAVITY (test code = 1.003-1.030 0802225562) GLU U QUAL (test code = Normal Normal 8666365319) BLOOD (test code = Negative Negative 0691764431) KETONES (test code = Negative Negative 4626544004) PROTEIN (test code = Negative Negative 2887-8) UROBILIN (test code = Normal Normal 4544619584) BILIRUBIN (test code = Negative Negative 8908327998) NITRITE (test code = Negative Negative 9316209682) LEUK MED (test code = Negative Negative 3535769243) RBC/HPF (test code = See_Comment [Autom ated message] 4572043171) The system [employer] generated this result transmitted ref erence range: 0 - 3 HP F. The reference range was not used to int erpret this result as normal/abnormal . WBC/HPF (test code = See_Comment [Autom ated message] 1686335837) The system [employer] generated this result transmitted ref erence range: 0 - 5 HP F. The reference range was not used to int erpret this result as normal/abnormal . BACTERIA (test code = Negative Negative 4312686033) MUCOUS (test code = Slight Negative LPF A 0370047440) SQ EPITH (test code = <1 HPF 3932691757) Lab Interpretation (test Abnormal code = 53251-1) [facility]
[2021-10-10] MEDS ORDERED: NALOXONE 0.4 MG/ML VIAL ONE (10:19)
[2021-10-10 10:35] LABS: Urine Blood Trace-intact (Negative); Urine Glucose Negative (Negative); Urine Protein 1+ (Negative); Urine Specific Gravity 1.025 (1.005-1.030); Urine pH 5.5 (5.0-7.0)
[2021-10-10 10:39] LABS: SARS-CoV-2 Antigen Rapid Res Negative (Negative)
[2021-10-10] MEDS ORDERED: NA CHLORIDE 0.9% 500 ML ONE ×2 (11:01→11:53)
[2021-10-10] MEDS ORDERED: NALOXONE HCL 2 MG/2 ML VIAL ONE (11:01)
--- NOTE | 2021-10-10 11:04 | RAD REPORT ---
EXAM DESCRIPTION: CT - CTHCSPWOC - 10/10/2021 10:52 am CLINICAL HISTORY: altered mental status COMPARISON: No comparisonsNo comparisons TECHNIQUE: Axial 5 mm thick images of the head were obtained. Axial 2 mm thick images of the cervic al spine were obtained with sagittal and coronal reconstruction images generated and reviewed. All CT scans are performed using dose optimization technique as appropriate and may include automated exposure control or mA/KV adjustment according to patient size. FINDINGS: No intracranial hemorrhage, mass, edema or acute intracranial finding. No suspicion for ac [place] infarction. No extra-axial fluid collections. Mastoid air cells and paranasal sinuses are clear. No globe or orbit abnormality seen. Cervical body height and alignment are normal. No disk space narrowing. No fracture or acute bony abn ormality. Posterior endplate spurring present at C5 and C6. Central canal detail is inherently limite d. No paraspinal mass or hematoma. IMPRESSION: Negative CT head examination for acute or significant finding. Negative CT cervical spine examination for acute or significant finding.
[2021-10-10 11:23] LABS: Barbiturates NEGATIVE (NEGATIVE); Benzodiazepines POSITIVE (NEGATIVE); Cocaine POSITIVE (NEGATIVE); METHAMPHETAM POSITIVE (NEGATIVE); Methadone NEGATIVE (NEGATIVE); Opiates NEGATIVE (NEGATIVE); Phencyclidine NEGATIVE (NEGATIVE); THC Cannibis NEGATIVE (NEGATIVE)
--- NOTE | 2021-10-10 12:13 | RAD REPORT ---
EXAM DESCRIPTION: RAD - Chest Single View - 10/10/2021 11:10 am CLINICAL HISTORY: SOB COMPARISON: Portable 08/25/2020 TECHNIQUE: AP portable chest image was obtained 10/10/2021 11:10 am . FINDINGS: Lung volumes are very low. No diffuse pulmonary edema, mass or failure finding. Lung lisa ngs are not substantially different from comparison. Heart and vasculature are normal. No measurable pleural effusion and no pneumothorax. No acute bony abnormality seen. No acute aortic findings suspec serina. IMPRESSION: No acute cardiopulmonary process.
[2021-10-10 12:42] LABS: ALT/SGPT 55 U/L (12-78); AST/SGOT 114 U/L (15-37); Alkaline Phosphatase 72 U/L (45-117); BUN Blood Urea Nitrogen 57 mg/dL (7-18); Bicarbonate 24 mmol/L (21-32); Bilirubin Direct 0.4 mg/dL (0-0.2); Bilirubin Total 1.3 mg/dL (0.2-1.0); Glomerular Filtration Rate 34 ml/min (=/>90); Glucose Level 105 mg/dL (74-106); Potassium 4.3 mmol/L (3.5-5.1); Protein, Total 8.5 g/dL (6.4-8.2); Sodium Level 138 mmol/L (136-145)
[2021-10-10 14:55] LABS: Hematocrit 45.9 % (39.6-49.0); Lymphocytes % 8.7 % (15.3-44.8); MCV 91.1 fL (80-100); MPV 8.3 fL (7.6-11.3); RBC Red Blood Cell Count 5.03 M/uL (4.33-5.43)
[2021-10-10] MEDS ORDERED: NA CHLORIDE 0.9% 2,000 ML ONE (15:27)
--- NOTE | 2021-10-10 16:23 | RAD REPORT ---
EXAM DESCRIPTION: CT - Chest Abd Pelvis Wo Con - 10/10/2021 3:54 pm CLINICAL HISTORY: altered mental status, shortness of breath COMPARISON: No comparisons TECHNIQUE: Axial 5 millimeter thick images of the chest, abdomen and pelvis were obtained without IV contrast. Oral contrast was administered. All CT scans are performed using dose optimization technique as appropriate and may include automated exposure control or mA/KV adjustment according to patient size. FINDINGS: No dense consolidation seen. Patchy lung parenchymal opacification is present in each post erior gutter. There is significant respiratory motion limiting evaluation. This is probably atelectas is. A component of aspiration cannot be excluded. Lung hernandez are otherwise unremarkable. No pneumoth orax or pleural effusion. No chest wall mass or abnormal axillary lymphadenopathy seen. Mediastinal and hilar regions show no mass or lymphadenopathy. No significant cardiac finding. The liver, spleen and pancreas show no significant findings for non contrast imaging. Gallbladder an d biliary tree are normal. No hydronephrosis or suspicious renal mass. Isodense masses and pyelonephritis cannot be excluded on non contrast imaging. No adrenal abnormalities. Awad catheter is in place. Air within the lumen of the bladder is presumed to be from catheter placement. No dilated bowel loops or focal ball bowel wall thickening. No free air, free fluid or inflammatory stranding. No hernia, mass or bulky lymphadenopathy. No acute bone findings seen. L5 pars defects are present without subluxation of L5. No acute vascular finding suspected. Vascular assessment is limited in the absence of contrast. IMPRESSION: Patchy bilateral lung base opacification is present with assessment created due to motio n. This is most likely atelectasis though a component of aspiration cannot be excluded. CT abdomen and pelvis imaging shows no significant or suspicious finding.
--- NOTE | 2021-10-10 16:50 | EDPHYS ---
Physician Documentation [facility] Name: Vic Hernandez Age: 30 yrs Sex: Male : 1990 Arrival Date: 10/10/2021 Time: 10:07 Bed 3 Private MD: ED Physician Lupe Diaz HPI: 10/10 10:20 This 30 yrs old Male presents to ER via Wheelchair with complaints of Overdose. cp 10:20 The patient presents to the emergency department after a known overdose, a result of cp recreational substance abuse. Context: Method: the patient has a confirmed or suspected ingestion, of benzodiazepines, Time: the patient's OD/poisoning occurred at an unknown time, and was witnessed no one. Associated signs and symptoms: Pertinent positives: incontinence, vomiting, AMS, Pertinent negatives: chest pain, abdominal pain. Severity of symptoms: in the emergency department the symptoms are unchanged. Historical: - Allergies: 10:49 No Known Allergies; jl7 - PMHx: 10:49 ADD/ADHD; Anxiety; Heart Arrythmia; Hypertension; jl7 - Immunization history:: Adult Immunizations unknown. - Social history:: Smoking status: unknown. ROS: 10:25 Constitutional: Negative for fever. cp 10:25 Eyes: Negative for injury, pain, redness, and discharge. cp 10:25 Cardiovascular: Negative for chest pain. 10:25 Respiratory: Negative for cough, wheezing. 10:25 Abdomen/GI: Positive for vomiting. 10:25 Neuro: Positive for altered mental status, weakness. 10:25 All other systems are negative. Exam: 10:30 Head/Face: Normocephalic, atraumatic. cp 10:30 Constitutional: The patient appears alert, awake, non-toxic, well developed, well nourished, in obvious distress, mildly distressed, unkempt. 10:30 Eyes: Periorbital structures: appear normal, Pupils: constricted, bilaterally, Extraocular movements: intact throughout, Conjunctiva: normal, no exudate, no injection, Sclera: no appreciated abnormality, Lids and lashes: appear normal, bilaterally. 10:30 ENT: External ear(s): are unremarkable, Ear canal(s): are normal, clear, TM's: dullness, bilaterally, Nose: is normal, Mouth: Lips: dry, Oral mucosa: moist, Posterior pharynx: Airway: no evidence of obstruction, patent. 10:30 Neck: ROM/movement: is normal, is supple, no meningismus, no nuchal rigidity. 10:30 Chest/axilla: Inspection: normal, Palpation: is normal, no crepitus, no tenderness. 10:30 Cardiovascular: Rate: tachycardic, Rhythm: regular, Edema: is not appreciated, JVD: is cp not appreciated. 10:30 Respiratory: Respirations: labored breathing, that is mild, shallow respirations, that cp is mild, Breath sounds: bronchial sounds, that are mild, are heard in the left posterior lower lobe, right posterior middle lobe and right posterior lower lobe, decreased breath sounds, that are mild, throughout, stridor, is not appreciated, wheezing: is not appreciated. 10:30 Abdomen/GI: Inspection: abdomen appears normal, Bowel sounds: active, all quadrants, Palpation: soft, in all quadrants, mild abdominal tenderness, in all quadrants. 10:30 Back: CVA tenderness, is absent. 10:30 Skin: cellulitis, is not appreciated, no rash present. 10:30 Neuro: Orientation: to person, situation, Mentation: able to follow commands, slow to respond, somnolent, responsive to pain, Motor: moves all fours. Vital Signs: 10:11 BP 119 / 91; Pulse 107; Pulse Ox 92% on R/A; iw 10:15 Resp 23; Temp 97; jl7 12:15 BP 134 / 96; Pulse 89; Resp 26; Pulse Ox 98% ; jl7 13:00 BP 131 / 98; Pulse 86; Resp 25; Pulse Ox 98% ; jl7 14:42 BP 125 / 101; Pulse 83; Resp 25; Pulse Ox 98% on 1 lpm NC; jl7 15:45 BP 133 / 95; Pulse 84; Resp 24; Pulse Ox 98% on R/A; hb 17:12 BP 132 / 97; Pulse 93; Resp 24; Pulse Ox 91% on R/A; jl7 Procedures: 17:33 Peripheral line: by aseptic technique a peripheral line was placed in the left external cp jugular vein. MDM: 10:14 Patient medically screened. sd2 11:00 Differential diagnosis: intracranial hemorrhage, respiratory failure, sepsis, kidney cp failure, cardiac failure. 16:50 Data reviewed: vital signs, nurses notes, lab test result(s), EKG, radiologic studies, cp CT scan, plain films. 16:50 Test interpretation: by ED physician or midlevel provider: ECG, plain radiologic cp studies. Physician consultation: Brayan Tripp MD was called at 16:30, was contacted at 16:30, regarding admission, to the ICU, patient's condition. 10/10 10:16 Order name: Acetaminophen; Complete Time: 14:17 cp 10/10 10:16 Order name: Basic Metabolic Panel; Complete Time: 14:17 cp 10/10 14:18 Interpretation: Normal except: BUN 57; CRE 2.49; GFR 34. cp 10/10 10:16 Order name: CBC with Diff cp 10/10 15:30 Interpretation: Normal except: WBC 22.80; MCV 91.1; CORRINE% 82.6; NEUT A 18.8; LYM% 8.7; cp MNA 1.9. 10/10 10:16 Order name: ETOH Level; Complete Time: 14:17 cp 10/10 10:16 Order name: Hepatic Function; Complete Time: 14:17 cp 10/10 15:30 Interpretation: Normal except: AST 114; BILIT 1.3; BILID 0.4; TP 8.5; GLOB 4.5; A/G 0.9.cp 10/10 10:16 Order name: PT-INR cp 10/10 10:16 Order name: Ptt, Activated cp 10/10 10:16 Order name: Salicylate; Complete Time: 12:14 cp 10/10 10:16 Order name: Urine Drug Screen; Complete Time: 12:14 cp 10/10 12:14 Interpretation: Normal except: BZO POSITIVE; RADHAMES POSITIVE; METHAMPHETAMINE POSITIVE. cp 10/10 10:16 Order name: SARS RAPID; Complete Time: 12:14 cp 10/10 10:36 Order name: Urine Dipstick-Ancillary; Complete Time: 12:14 EDMS 10/10 12:14 Interpretation: Normal except: UBLD Trace-intact; UPROT 1+. cp 10/10 14:57 Order name: CK; Complete Time: 16:04 cp 10/10 16:04 Interpretation: CPK 4449; Reviewed. 10/10 16:22 Order name: Lactate cp 10/10 16:22 Order name: Procalcitonin cp 10/10 16:22 Order name: Blood Culture Adult (2) cp 10/10 16:35 Order name: ABG sd2 10/10 17:00 Order name: CBC with Automated Diff EDMS 10/10 17:00 Order name: CBC with Automated Diff EDMS 10/10 17:00 Order name: CBC with Automated Diff EDMS 10/10 17:00 Order name: CBC with Automated Diff EDMS 10/10 17:00 Order name: Comprehensive Metabolic Panel EDMS 10/10 17:00 Order name: Comprehensive Metabolic Panel EDMS 10/10 17:00 Order name: Comprehensive Metabolic Panel EDMS 10/10 17:00 Order name: Comprehensive Metabolic Panel EDMS 10/10 17:00 Order name: Creatine Phosphokinase EDMS 10/10 17:00 Order name: Creatine Phosphokinase EDMS 10/10 17:00 Order name: Creatine Phosphokinase EDMS 10/10 17:00 Order name: Creatine Phosphokinase EDMS 10/10 17:00 Order name: Magnesium EDMS 10/10 17:00 Order name: Magnesium EDMS 10/10 10:16 Order name: EKG; Complete Time: 10:18 cp 10/10 10:16 Order name: EKG - Nurse/Tech; Complete Time: 10:49 cp 10/10 10:16 Order name: IV Saline Lock; Complete Time: 10:49 cp 10/10 10:16 Order name: Labs collected and sent; Complete Time: 10:49 cp 10/10 10:16 Order name: Suicide Screening (Ste[place]); Complete Time: 10:49 cp 10/10 10:16 Order name: Urine Dipstick-Ancillary (obtain specimen); Complete Time: 10:49 cp 10/10 10:16 Order name: CT Head C Spine; Complete Time: 12:14 cp 10/10 10:31 Order name: XRAY Chest (1 view); Complete Time: 12:14 cp 10/10 10:55 Order name: Labs - recollect needed: recollect everything but the jim/; Complete Time: eb 11:30 10/10 12:21 Order name: Labs - recollect needed: recollect purple top/ redraw was short not enough eb in tube; Complete Time: 14:19 20 14:19 Order name: CT Chest Abdomen Pelvis W/O Contrast; Complete Time: 16:47 cp 10/10 17:00 Order name: NPO EDMS 10/10 17:00 Order name: Phosphorus EDMS 10/10 17:00 Order name: Phosphorus EDMS 10/10 17:00 Order name: Protime (+INR) EDMS 10/10 17:00 Order name: Protime (+INR) EDMS Administered Medications: 10:45 Drug: NS 0.9% 1000 ml Route: IV; Rate: 500 ml/hr; Site: right forearm; jl7 12:45 Follow up: IV Status: Completed infusion; IV Intake: 1000ml jl7 10:50 Drug: NARcan (naloxone) 1 mg Route: IVP; Site: right forearm; jl7 10:51 Follow up: Response: No adverse reaction; No change in condition jl7 13:00 Drug: NARcan (naloxone) 1 mg Route: IVP; Site: right forearm; jl7 13:01 Follow up: Response: No adverse reaction; No change in condition 7 15:26 Drug: NS 0.9% 1000 ml Route: IV; Rate: 1 bolus; Site: right forearm; jl7 16:30 Follow up: Response: No adverse reaction; IV Status: Completed infusion; IV Intake: jl7 1000ml 15:26 Drug: NS 0.9% 1000 ml Route: IV; Rate: 125 ml/hr; Site: right forearm; jl7 18:10 Follow up: Response: No adverse reaction; IV Status: Infusion continued upon admission jl7 17:45 Drug: Rocephin (cefTRIAXone) 1 grams Route: IV; Rate: calculated rate; Site: right jl7 forearm; 17:48 Follow up: Response: No adverse reaction; IV Status: Completed infusion jl7 17:50 Drug: Zithromax (azithromycin) 500 mg Route: IVPB; Infused Over: 1 hrs; Site: right jl7 forearm; 18:10 Follow up: IV Status: Infusion continued upon admission jl7 Disposition: 10/11 08:15 Co-signature as Attending Physician, Lupe Diaz MD STAFF ATTESTATION: The sd2 patient's history, exam findings, diagnostics and a summary of any interventions or procedures was reviewed in detail with the OSIR[facility]. I personally interviewed and examined the patient, and I have reviewed and agree with the HPI and exam. My personal exam shows a drowsy appearing male that arouses to painful stimuli. He is mildly tachycardic and tachypneic. He is able to answer my questions appropriately although with slurred speech.. I confirm the diagnosis as documented by the SOIRIS. I have reviewed and agree with the care plan articulated in the disposition section. Lupe Diaz MD. Disposition Summary: 10/10/21 16:49 Hospitalization Ordered Hospitalization Status: Inpatient Admission cp Provider: Brayan Tripp cp Condition: Fair cp Problem: new cp Symptoms: have improved cp Bed/Room Type: Standard cp Location: Intensive Care Unit(10/10/21 17:14) eb Room Assignment: 7-(10/10/21 17:14) eb Diagnosis - Acute kidney failure, unspecified cp - Pneumonia due to other specified bacteria cp - Severe sepsis without septic shock cp Forms: - Medication Reconciliation Form cp - SBAR form cp Signatures: Dispatcher [employer] EDMS Alvarez Lo PA PA cp Leal, Jahala, RN RN jl7 Kristina Shafer Stephanie, MD MD sd2 Corrections: (The following items were deleted from the chart) 10/10 17:14 16:49 Telemetry/MedSurg (Inpatient) cp eb 17:14 16:49 cp eb
--- NOTE | 2021-10-10 16:50 | ER ---
Nurse's Notes [facility] [place] Name: Vic Hernandez Age: 30 yrs Sex: Male : 1990 Arrival Date: 10/10/2021 Time: 10:07 Bed 3 Private MD: Diagnosis: Acute kidney failure, unspecified;Pneumonia due to other specified bacteria;Severe sepsis without septic shock Presentation: 10/10 10:08 Chief complaint: pt arrived via private vehicle, AMS, possible drug OD, pt was found iw "on side of road" and then brought to an acquittance's room , was cold to touch and appeared to be incontinent of urine, brought to ER by acquaintance , pt states he took Ativan. Coronavirus screen: At this time, the client does not indicate any symptoms associated with coronavirus-19. Ebola Screen: Patient negative for fever greater than or equal to 101.5 degrees Fahrenheit, and additional compatible Ebola Virus Disease symptoms Patient denies exposure to infectious person. Patient denies travel to an Ebola-affected area in the 21 days before illness onset. No symptoms or risks identified at this time. Initial Sepsis Screen: Does the patient meet any 2 criteria? No. Patient's initial sepsis screen is negative. Does the patient have a suspected source of infection? No. Patient's initial sepsis screen is negative. Risk Assessment: Do you want to hurt yourself or someone else? Patient reports no desire to harm self or others. Onset of symptoms was October 10, 2021. 10:08 Method Of Arrival: Wheelchair iw 10:08 Acuity: ARISTIDES 2 iw Triage Assessment: 10:10 General: Appears distressed, unkempt, Behavior is responsive to painful stimuli only. jl7 Pain: Denies pain. Neuro: Martínez Agitation-Sedation Scale (RASS): -4 Deep sedation. Cardiovascular: Rhythm is sinus tachycardia. Respiratory: Airway is patent Respiratory effort is unlabored, shallow, weak, Respiratory pattern is symmetrical, tachypnea. Derm: Skin is dry, Skin is pale, Skin temperature is cold. Historical: - Allergies: 10:49 No Known Allergies; jl7 - PMHx: 10:49 ADD/ADHD; Anxiety; Heart Arrythmia; Hypertension; jl7 - Immunization history:: Adult Immunizations unknown. - Social history:: Smoking status: unknown. Screenin:00 Abuse screen: Denies threats or abuse. Denies injuries from another. Nutritional jl7 screening: No deficits noted. Tuberculosis screening: No symptoms or risk factors identified. Fall Risk No fall in past 12 months (0 pts). Secondary diagnosis (15 points) impaired mobility, IV access (20 points). Ambulatory Aid- None/Bed Rest/Nurse Assist (0 pts). Gait- Impaired (20 pts.). Mental Status- Overestimates/Forgets Limitations (15 pts.). Total [place] Fall Scale indicates High Risk Score (45 or more points). Fall prevention measures have been instituted. Side Rails Up X 2 Placed Close to Nursing Station Frequent Obs/Assessments Occuring. Assessment: 11:00 Reassessment: Pt states "This stays between us. I took Percocet." ERP notified. jl7 11:30 Reassessment: Phlebotomy at bedside attempting to draw recollect labs. jl7 12:00 Reassessment: No changes from previously documented assessment. Neuro: Mauricio [email or web address] Agitation-Sedation Scale (RASS): -4 Deep sedation. 13:00 Reassessment: No changes from previously documented assessment. Neuro: Mauricio 7 Agitation-Sedation Scale (RASS): -4 Deep sedation. 14:42 Reassessment: Pt remains difficult wake with painful stimuli, VSS. jl7 16:00 Reassessment: No changes from previously documented assessment. Neuro: Mauricio 7 Agitation-Sedation Scale (RASS): -4 Deep sedation. 17:00 Reassessment: No changes from previously documented assessment. Neuro: Mauricio 7 Agitation-Sedation Scale (RASS): -4 Deep sedation. Overdose: 11:15 [place] Suicide Severity Screening: "In the past month, have you wished you were jl7 or wished you could go to sleep and not wake up?" Patient responds "no." "In the past month, have you actually had any thoughts of killing yourself?" Patient responds "no." "In your lifetime, have you ever done anything, started to do anything, or prepared to do anything to end your life?" Patient responds "no.". Vital Signs: 10:11 BP 119 / 91; Pulse 107; Pulse Ox 92% on R/A; iw 10:15 Resp 23; Temp 97; jl7 12:15 BP 134 / 96; Pulse 89; Resp 26; Pulse Ox 98% ; jl7 13:00 BP 131 / 98; Pulse 86; Resp 25; Pulse Ox 98% ; jl7 14:42 BP 125 / 101; Pulse 83; Resp 25; Pulse Ox 98% on 1 lpm NC; jl7 15:45 BP 133 / 95; Pulse 84; Resp 24; Pulse Ox 98% on R/A; hb 17:12 BP 132 / 97; Pulse 93; Resp 24; Pulse Ox 91% on R/A; jl7 ED Course: 10:07 Patient arrived in ED. eb 10:10 Triage completed. iw 10:10 Arm band placed on. iw 10:10 Patient has correct armband on for positive identification. Placed in gown. Bed in low jl7 position. Call light in reach. Side rails up X2. Client placed on continuous cardiac and pulse oximetry monitoring. NIBP monitoring applied. Warm blanket given. 10:13 Lupe Diaz MD is Attending Physician. sd2 10:15 Alvarez Lo PA is PHCP. cp 10:30 EKG done, by ED staff, reviewed by Alvarez RAM COVID swab sent to lab. Awad cath jl7 inserted, using sterile technique, 16 Fr., by ethnographic materials conservator, balloon inflated, to gravity drainage, urine specimen collected. Inserted saline lock: 22 gauge in right forearm, using aseptic technique. 10:48 Frannie Velasquez RN is Primary Nurse. jl7 10:54 CT Head C Spine In Process Unspecified. EDMS 11:12 XRAY Chest (1 view) In Process Unspecified. EDMS 15:56 CT Chest Abdomen Pelvis W/O Contrast In Process Unspecified. EDMS 16:49 Brayan Tripp MD is Hospitalizing Provider. cp 17:40 Inserted saline lock: 18 gauge in left EJ, using aseptic technique. ,using aseptic jl7 technique. inserted by YO Rai. 18:10 No provider procedures requiring assistance completed. Patient admitted, IV remains in jl7 place. intact, No redness/swelling at site. Administered Medications: 10:45 Drug: NS 0.9% 1000 ml Route: IV; Rate: 500 ml/hr; Site: right forearm; jl7 12:45 Follow up: IV Status: Completed infusion; IV Intake: 1000ml jl7 10:50 Drug: NARcan (naloxone) 1 mg Route: IVP; Site: right forearm; jl7 10:51 Follow up: Response: No adverse reaction; No change in condition jl7 13:00 Drug: NARcan (naloxone) 1 mg Route: IVP; Site: right forearm; jl7 13:01 Follow up: Response: No adverse reaction; No change in condition jl7 15:26 Drug: NS 0.9% 1000 ml Route: IV; Rate: 1 bolus; Site: right forearm; jl7 16:30 Follow up: Response: No adverse reaction; IV Status: Completed infusion; IV Intake: jl7 1000ml 15:26 Drug: NS 0.9% 1000 ml Route: IV; Rate: 125 ml/hr; Site: right forearm; jl7 18:10 Follow up: Response: No adverse reaction; IV Status: Infusion continued upon admission jl7 17:45 Drug: Rocephin (cefTRIAXone) 1 grams Route: IV; Rate: calculated rate; Site: right jl7 forearm; 17:48 Follow up: Response: No adverse reaction; IV Status: Completed infusion jl7 17:50 Drug: Zithromax (azithromycin) 500 mg Route: IVPB; Infused Over: 1 hrs; Site: right jl7 forearm; 18:10 Follow up: IV Status: Infusion continued upon admission jl7 Medication: 12:15 VIS not applicable for this client. jl7 Intake: 12:45 IV: 1000ml; Total: 1000ml. jl7 16:30 IV: 1000ml; Total: 2000ml. jl7 Outcome: 16:49 Decision to Hospitalize by Provider. cp 18:13 Admitted to ICU accompanied by nurse, via stretcher, room 7, with oxygen, on monitor, jl7 with chart, Report called to RICKY Ramachandran 18:13 Condition: stable 18:13 Discharge instructions given to unable to instruct pt due to neuro status 18:13 Patient left the ED. jl7 Signatures: Dispatcher [employer] EDMS Arabella Esposito RN RN iw Page, Corey, PA PA cp Angelica Samaniego RN RN hb Leal, Jahala, RN RN jl7 Kristina Shafer Stephanie, MD MD sd2 Corrections: (The following items were deleted from the chart) 17:12 16:00 BP 132 / 97; Pulse 93bpm; Resp 24bpm; Pulse Ox 91% RA; jl7 jl7
[2021-10-10 17:02] LABS: Arterial Blood Carboxyhemoglob 1.7 % (0-1.5); Blood Gas Oxyhemoglobin 89.6 % (94-97); Blood O2 Saturation 92.2 % (92-98.5)
[2021-10-10] MEDS ORDERED: CEFTRIAXONE 1000 MG/VIAL ONE (17:50)
[2021-10-10] MEDS ORDERED: NA CHLORIDE 0.9% 50 ML ONE (17:51)
[2021-10-10] MEDS ORDERED: NA CHLORIDE 0.9% 250 ML ONE (17:51)
[2021-10-10] MEDS ORDERED: AZITHROMYCIN 500 MG INJ IVPB ONE (17:51)
[2021-10-10 18:19] LABS: Blood Morphology Comment NOT SEEN (NOT SEEN); Platelet Estimate ADEQ
--- NOTE | 2021-10-10 19:00 | P.HP ---
Certification for Inpatient Patient admitted to: Inpatient With expected LOS: >2 Midnights Patient will require the following post-hospital care: None Practitioner: I am a practitioner with admitting privileges, knowledge of patient current condition, hospital course, and medical plan of care. Services: Services provided to patient in accordance with Admission requirements found in Title 42 Section 412.3 of the Code of Federal Regulations Patient History Date of Service: 10/10/21 Reason for admission: Altered Mental Status History of Present Illness: Mr. Vic Hernandez is a 30 year old male who has a past medical history of hypertension who presents to the [facility] Emergency Department for altered mental status. History is extremely limited as he is altered and minimally responsive. Per discussion with the ED provider, he was dropped off in the emergency department lobby by his presumed friends. He is not communicating or providing a history. He appears to be overdosed on drugs. Upon presentation, his vital signs were notable for a heart rate of 107 bpm and a respiratory rate of 24 breaths/min. His laboratory studies were notable for a WBC count of 22,800, a BUN of 57, a creatinine of 2.49 (was 0.79 on 08/25/2020), a creatinine kinase of 4449, and an AST of 114. Blood cultures x 2 were obtained. EKG revealed sinus tachycardia without STEMI criteria. Chest x-ray revealed, "no acute cardiopulmonary process." CT head/cervical spine revealed, " negative CT head examination for acute or significant finding. Negative CT cervical spine examination for acute or significant finding." CT abdomen/pelvis revealed, "patchy bilateral lung base opacification is present with assessment created due to motion. This is most likely atelectasis though a component of aspiration cannot be excluded. CT abdomen and pelvis imaging shows no significant or suspicious finding." In the Emergency Department, he was given 2 L normal saline, ceftriaxone, azithromycin, and 2 mg of naloxone. He was admitted to the General Internal Medicine service for further evaluation. Allergies No Known Allergies Allergy (Verified 04/19/19 03:22) Home Medications: Thiamine HCl [Vitamin B-1*] 100 mg PO DAILY #90 tablet 04/19/19 lisinopriL [Prinivil*] 10 mg PO DAILY #30 tab 04/19/19 - Past Medical/Surgical History Diabetic: No Past Medical History: Unable to obtain -: anxiety -: panic disorder -: drug/alcohol abuse -: smoker (quit early February) -: arrythmia Past Surgical History: Unable to obtain - Family History Family History: Reviewed- Non-Contributory (unable to obtain) - Family History Father -: Heart disease, Hypertension, Diabetes Notes: cardiac arrest Mother -: Liver disease Notes: cirrhosis. spinal stenosis - Social History Smoking Status: Unknown if ever smoked Alcohol use: Yes CD- Drugs: Yes Caffeine use: No Review of Systems is unable to be obtained Physical Examination - Vital Signs Temperature: 98.0 F Blood Pressure: 133/95 Pulse: 84 Respirations: 24 Pulse Ox (%): 92 - Physical Exam General: Unresponsive HEENT: Atraumatic, Mucous membr. moist/pink, Sclerae nonicteric Neck: Supple, JVD not distended Respiratory: Diminished, Crackles/rales, Rhonchi/gurgles Cardiovascular: No edema, Regular rate/rhythm, Normal S1 S2, No gallops, No rubs, No murmurs Gastrointestinal: Normal bowel sounds, Soft and benign, Non-distended, No tenderness, No rebound, No guarding Musculoskeletal: No clubbing Integumentary: No rashes Neurological: Other (unresponsive) Urinary: Awad catheter - Studies Laboratory Data (last 24 hrs) 10/10/21 14:18: WBC 22.80 H*, Hgb 15.0, Hct 45.9, Plt Count 300 10/10/21 12:03: Sodium 138, Potassium 4.3, BUN 57 H, Creatinine 2.49 H, Glucose 105, Total Bilirubin 1.3 H, AST 114 H, ALT 55, Alkaline Phosphatase 72 Assessment and Plan - Plan # Acute Toxic Metabolic Encephalopathy likely secondary to Drug Overdose (Amphetamines, Benzodiazepines, Cocaine) # Substance Use Disorder - Evaluation thus far: - Labs = Na+ 138, Ca2+ 9.7, CO2 24, Glucose 105, BUN 57 - ABG = pH 7.39, PCO2 39.1, PO2 66.1 - Urine drug screen = cocaine, benzodiazepines, amphetamines - Ethanol level = < 10 - Blood cultures x 2 drawn - CT head = "Negative CT head examination for acute or significant finding. Negative CT cervical spine examination for acute or significant finding. " - Medication review = unable to obtain - Management plan: - Admit to ICU for close monitoring - Currently protecting his airway - low threshold for intubation - q4h neuro checks - Avoid beta-blockers given cocaine use - Thiamine 100 mg IV daily - Cessation counseling once able # Possible Severe Sepsis secondary to Aspiration Pneumonitis with possible superimposed Aspiration Pneumonia He meets SIRS criteria based on HR > 90 bpm, RR > 20 breaths/min, WBC > 12,000, and the possible source is pneumonia. Severe sepsis is suspected due to concern for tissue hypoperfusion/organ dysfunction based on creatinine >2.0 mg/dL (without ESRD). - Sepsis order set was initiated - Initial Lactate was 0.9 - Blood cultures drawn before antibiotics were given - Broad spectrum antibiotics started: Ceftriaxone + Azithromycin - In regards to fluids: - 30 mL/kg of IV Normal Saline was given based on patient's actual body weight. # KDIGO Stage II Acute Kidney Injury likely secondary to Rhabdomylosis # Elevated AST likely due to Rhabdo - Creatinine = 2.49 (creatinine was 0.79 on 08/25/2020) - CK = 4,449 - Urinalysis = trace blood, 1+ protein - S/P 2 L NS in ED - IV Lactated Ringers' 125 mL/hr - Monitor creatinine and urine output - If worsening, obtain renal ultrasound - Renally dose medications # Hypertension - Hold home medications until verified Brayan Tripp M.D. Discharge Plan: Home Plan to discharge in: Greater than 2 days - Advance Directives Does patient have a Living Will: No Does patient have a Durable POA for Healthcare: No
[2021-10-10] MEDS: Ringers Lactate 1,000 ML IV SCH (19:39)
[2021-10-10] MEDS: THIAMINE 200 MG/2 ML INJ IVP SCH (19:57)
[2021-10-10 20:36] LABS: Protime INR 1.1
[2021-10-11] MEDS: Ringers Lactate 1,000 ML IV SCH ×3 (03:46→21:34)
[2021-10-11 05:09] LABS: Absolute Lymphocytes (CBC) 1.7 K/uL (0.7-4.9); Hematocrit 39.8 % (39.6-49.0); Lymphocytes % 8.8 % (15.3-44.8); MCV 88.7 fL (80-100); MPV 7.8 fL (7.6-11.3); RBC Red Blood Cell Count 4.49 M/uL (4.33-5.43)
[2021-10-11 05:16] LABS: Protime INR 1.21
[2021-10-11 05:40] LABS: Albumin 3.1 g/dL (3.4-5.0); Magnesium 2.8 mg/dL (1.8-2.4); Phosphorus 2.3 mg/dL (2.5-4.9); Potassium 4.4 mmol/L (3.5-5.1)
[2021-10-11] MEDS ORDERED: ASPIRIN 325 MG TAB PO ONE (09:43)
[2021-10-11] MEDS: AZITHROMYCIN IV 500 MG in NA CHLORIDE 0.9% 250 ML IVPB SCH (09:48)
[2021-10-11] MEDS: FOLIC ACID 1 MG TABLET PO SCH (09:48)
[2021-10-11] MEDS: ATORVASTATIN 40 MG TAB PO SCH (09:48)
[2021-10-11] MEDS: THIAMINE 200 MG/2 ML INJ IVP SCH (09:49)
--- NOTE | 2021-10-11 10:20 | RAD REPORT ---
EXAM DESCRIPTION: CT - [id number] - 10/11/2021 10:05 am CLINICAL HISTORY: RUE weakness COMPARISON: <Comparisons> TECHNIQUE: Axial 5 mm thick images of the head were obtained. Axial 2 mm thick images of the cervic al spine were obtained with sagittal and coronal reconstruction images generated and reviewed. All CT scans are performed using dose optimization technique as appropriate and may include automated exposure control or mA/KV adjustment according to patient size. FINDINGS: No intracranial hemorrhage, mass, edema or acute intracranial finding. No acute cortical b ased infarction identified. No cortical edema or sulcal effacement seen. No attenuation abnormality s een as a source for right upper extremity weakness. No extra-axial fluid collections. No atrophy or c hronic ischemic change. Ventricles are normal. Intracranial findings are not clearly different from t he October 10 study. Mastoid air cells and paranasal sinuses are clear. No globe or orbit abnormality seen. Cervical body height and alignment are normal. No disk space narrowing. No fracture or acute bony abn ormality. Posterior endplate spurring in the C5 and C6 bodies encroaches into the central canal does not cause significant stenosis. Central canal detail is inherently limited. No paraspinal mass or hematoma. IMPRESSION: Negative CT head examination for acute or significant finding. No significant changes fr om the October [address] cervical spine examination for acute or significant finding.
[2021-10-11] MEDS: CEFTRIAXONE 1,000 MG in NA CHLORIDE 0.9% 50 ML IVPB SCH (10:22)
--- NOTE | 2021-10-11 13:49 | P.PN ---
Subjective Date of Service: 10/11/21 Chief Complaint: Altered Mental Status Overnight, he has sobered up. He is now alert & oriented x 3 this morning. This morning, he has developed significant weakness in his right upper extremity. Review of Systems 10-point ROS is otherwise unremarkable Neurological: Weakness (right upper extremity ) Physical Examination - Vital Signs Temperature: 98 F Blood Pressure: 130/74 Pulse: 98 Respirations: 28 Pulse Ox (%): 95 - Studies Laboratory Data (last 24 hrs) 10/10/21 14:18: WBC 22.80 H*, Hgb 15.0, Hct 45.9, Plt Count 300 Assessment And Plan - Plan NIH Stroke Scale 1a. Level of consciousness: 0 - Alert; keenly responsive 1b. LOC questions: 0 - Both questions right 1c. LOC commands: 0 - Performs both tasks 2. Best Gaze: 0 - Normal 3. Visual: 0 - No visual loss 4. Facial Palsy: 0 - Normal symmetry 5a. Motor left arm: 0 - No drift for 10 seconds 5b. Motor right arm: 2 - Some effort against gravity 6a. Motor left le - No drift for 5 seconds 6b. Motor right le - No drift for 5 seconds 7. Limb ataxia: 0 - No ataxia 8. Sensory: 0 - Normal; no sensory loss 9. Best Language: 0 - Normal; no aphasia 10. Dysarthria: 0 - Normal 11. Extinction and Inattention: 0 - No abnormality 12. Distal motor function: 0 - No abnormality Total Score: 2 - Physical Exam General: Alert and oriented x 4 to person, place, time, and situation. HEENT: Atraumatic, Mucous membr. moist/pink, Sclerae nonicteric Neck: Supple, JVD not distended Respiratory: Diminished, Crackles/rales, Rhonchi/gurgles Cardiovascular: No edema, Regular rate/rhythm, Normal S1 S2, No gallops, No rubs, No murmurs Gastrointestinal: Normal bowel sounds, Soft and benign, Non-distended, No tenderness, No rebound, No guarding Musculoskeletal: No clubbing Integumentary: No rashes Neurological: Alert and oriented x 4 to person, place, time, and situation. 2/5 RUE weakness. Urinary: Awad catheter - Plan # Acute Toxic Metabolic Encephalopathy likely secondary to Drug Overdose (Amphetamines, Benzodiazepines, Cocaine) - resolved # Substance Use Disorder - Evaluation thus far: - Labs = Na+ 138, Ca2+ 9.7, CO2 24, Glucose 105, BUN 57 - ABG = pH 7.39, PCO2 39.1, PO2 66.1 - Urine drug screen = cocaine, benzodiazepines, amphetamines - Ethanol level = < 10 - Blood cultures x 2 drawn - CT head = "Negative CT head examination for acute or significant finding. Negative CT cervical spine examination for acute or significant finding. " - Management plan: - Transfer to Med/Surg - q4h neuro checks - Avoid beta-blockers given cocaine use - Thiamine 100 mg IV daily - Cessation counseling provided # Acute Right Upper Extremity Weakness - Evaluate for Cerebrovascular Accident - Consulted Neurology and spoke with Dr. Reid - recommendations appreciated - Differential includes CVA, brachial plexus palsy, vs drug-induced - NIHSS = 2 - STAT CT head/cervical spine = "Negative CT head examination for acute or significant finding. No significant changes from the October [address] cervical spine examination for acute or significant finding." - q4hr neurochecks - Ordered MR brain + MRA head/neck - Ordered TTE - PT/OT evaluation requested - Ordered risk profile: Hgb A1c, lipid panel, TSH - Started aspirin, atorvastatin, folic acid # Possible Severe Sepsis secondary to Aspiration Pneumonitis with possible superimposed Aspiration Pneumonia He meets SIRS criteria based on HR > 90 bpm, RR > 20 breaths/min, WBC > 12,000, and the possible source is pneumonia. Severe sepsis is suspected due to concern for tissue hypoperfusion/organ dysfunction based on creatinine >2.0 mg/dL (without ESRD). - Sepsis order set was initiated - Initial Lactate was 0.9 - Blood cultures drawn before antibiotics were given - Broad spectrum antibiotics started: Ceftriaxone + Azithromycin - In regards to fluids: - 30 mL/kg of IV Normal Saline was given based on patient's actual body weight. # KDIGO Stage II Acute Kidney Injury likely secondary to Rhabdomylosis, improving # Elevated AST likely due to Rhabdo - Creatinine = 2.49 -> 1.53 (creatinine was 0.79 on 08/25/2020) - CK = 4,449 -> 1,999 - Urinalysis = trace blood, 1+ protein - S/P 2 L NS in ED - IV Lactated Ringers' 125 mL/hr - Monitor creatinine and urine output - If worsening, obtain renal ultrasound - Renally dose medications # Hypertension - Hold home medications until verified Brayan Tripp M.D. Discharge Plan: Home Plan to discharge in: 48 Hours
[2021-10-12 05:10] LABS: Absolute Lymphocytes (CBC) 1.7 K/uL (0.7-4.9); Hematocrit 36.6 % (39.6-49.0); Lymphocytes % 10.5 % (15.3-44.8); MCV 88.2 fL (80-100); MPV 7.7 fL (7.6-11.3); RBC Red Blood Cell Count 4.14 M/uL (4.33-5.43)
[2021-10-12] MEDS: Ringers Lactate 1,000 ML IV SCH ×2 (05:11→12:00)
[2021-10-12 05:54] LABS: Albumin 2.7 g/dL (3.4-5.0); Bilirubin Total 0.8 mg/dL (0.2-1.0); Potassium 3.3 mmol/L (3.5-5.1); Protein, Total 6.6 g/dL (6.4-8.2); Thyroid Stimulating Hormone 1.03 uIU/mL (0.360-3.740)
[2021-10-12 06:12] VITALS: BMI 26.4
--- NOTE | 2021-10-12 08:13 | EKG ---
Test Date: 2021-10-10 Test Time: 10:29:28 Quality Systems Technician: JAMIE MEASUREMENT RESULTS: Intervals: Rate: 104 LA: 192 QRSD: 102 QT: 320 QTc: 420 [place]: P: 28 LA: 192 QRS: 10 T: 23 INTERPRETIVE STATEMENTS: Sinus tachycardia with occasional premature ventricular complexes Nonspecific T wave abnormality Abnormal ECG Compared to ECG 03/09/2021 23:57:32 Ventricular premature complex(es) now present Myocardial infarct finding no longer present Possible ischemia no longer present T-wave abnormality still present Electronically Signed On 10-12-21 08:07:00 CDT by Keyur Keane
--- NOTE | 2021-10-12 08:40 | RAD REPORT ---
EXAM DESCRIPTION: MRI - Brain W/Wo Cont - 10/12/2021 8:32 am CLINICAL HISTORY: Stroke Eval COMPARISON: MRA Head Wo Cont dated 10/12/2021; Head C Spine Mpr Wo Con dated 10/11/2021 TECHNIQUE: Sagittal T1-weighted images were obtained along with PD/heavily T2-weighted and T2-FLAIR images. Axial DWI and ADC mapping sequences were also obtained along with coronal heavily T2-weighted images were obtained. Post contrast enhanced images were obtained. FINDINGS: No intracranial hemorrhage, mass or acute infarction. No edema or shift of midline structu res. No extra-axial fluid collections. Signal voids are seen as a normal finding in the major intracr anial vessels. No significant white matter disease. No abnormal enhancement. No mastoid effusion.Paranasal sinuses are clear. IMPRESSION: No acute intracranial abnormality. No abnormal enhancement.
--- NOTE | 2021-10-12 08:41 | RAD REPORT ---
EXAM DESCRIPTION: MRI - MRA Head Wo Cont - 10/12/2021 8:32 am CLINICAL HISTORY: Stroke Eval CVA COMPARISON: No comparisons FINDINGS: 3D noncontrast [id number] MR angiography of the [place] was performed. No aneurysm, flow-limiting stenosis or vascular malformation is seen. Forward flow seen in codominant vertebral arteries. type left [employer]ICER. The visualized dural venous sinuses appear patent. IMPRESSION: No significant flow abnormality of the [place] is identified.
--- NOTE | 2021-10-12 08:42 | RAD REPORT ---
EXAM DESCRIPTION: MRI - MRA Neck W/Wo Cont - 10/12/2021 8:32 am CLINICAL HISTORY: Stroke Eval COMPARISON: No comparisons FINDINGS: Contrast enhance 2D [id number] MR angiography of the neck vessels was performed. Both carotid systems are widely patent. The right vertebral artery is slightly dominant. IMPRESSION: No flow limiting stenosis is present within the neck.
[2021-10-12] MEDS: FOLIC ACID 1 MG TABLET PO SCH (09:02)
[2021-10-12] MEDS: ATORVASTATIN 40 MG TAB PO SCH (09:02)
[2021-10-12] MEDS: ASPIRIN 81 MG CHEWABLE TABLET PO SCH (09:02)
[2021-10-12] MEDS: THIAMINE 200 MG/2 ML INJ IVP SCH (09:02)
[2021-10-12] MEDS: AZITHROMYCIN IV 500 MG in NA CHLORIDE 0.9% 250 ML IVPB SCH (09:03)
[2021-10-12] MEDS: CEFTRIAXONE 1,000 MG in NA CHLORIDE 0.9% 50 ML IVPB SCH (09:03)
[2021-10-12] MEDS ORDERED: MORPHINE 2 MG/ML SYR IV ONE (10:08)
[2021-10-12] MEDS ORDERED: POTASSIUM CL SA 10 MEQ TAB PO ONE (14:00)
[2021-10-12] MEDS ORDERED: IPRATROPIUM BROM 0.5MG/2.5ML NEB PRN (18:05)
[2021-10-12] MEDS ORDERED: ALBUTEROL 2.5 MG/3 ML NEB SOL NEB PRN (18:05)
[2021-10-12] MEDS ORDERED: ALBUTEROL 2.5 MG/3 ML NEB SOL ONE (18:13)
[2021-10-12] MEDS ORDERED: IPRATROPIUM BROM 0.5MG/2.5ML ONE (18:13)
--- NOTE | 2021-10-12 18:17 | RAD REPORT ---
EXAM DESCRIPTION: Shadi Single View10/12/2021 6:10 pm CLINICAL HISTORY: Wheezing COMPARISON: October 10 FINDINGS: No significant change in bilateral lower lobe opacities left greater than right. Heart is borderline enlarged IMPRESSION: No significant change in the bilateral lower lobe opacities left greater than right whic h could represent pneumonia or atelectasis
[2021-10-12] MEDS ORDERED: IPRATROPIUM BROM 0.5MG/2.5ML NEB SCH (20:00)
[2021-10-12] MEDS ORDERED: ALBUTEROL 2.5 MG/3 ML NEB SOL NEB SCH (20:00)
--- NOTE | 2021-10-12 20:12 | CON ---
Date of Consultation: 10/12/2021 Reason For Consultation: Pauses on telemetry. History Of Present Illness: This is a 30-year-old male, who is using drugs including methamphetamine and cocaine. Apparently, he was found unresponsive. He was brought into the emergency room. Initi ally, there were concerns about stroke; however, MRI of the brain was negative. On telemetry, he had frequent premature atrial contraction with some compensatory pauses. They are, however, less than 3 seconds and now while he is awake, he has totally normal rhythm. He does not have any history of ca rdiac issues. Past Medical History: 1.Hypertension. 2.Polysubstance drug abuse. Medications: Refer reconciliation sheet for detailed list. Allergies: NO KNOWN DRUG ALLERGIES. Family History: No mention of coronary artery disease or cancer. Social History: He smokes, uses drugs, and alcohol as outlined above. Review of Systems: All systems reviewed and they were negative except for mentioned in HPI. Physical Examination: Vital Signs: Reviewed. Head and Neck: Pupils are equal, reactive to light. Intact eye movements. No JVD. No cervical lym phadenopathy. Neck supple. Thyroid is not enlarged. Lungs: Clear to auscultation bilaterally. No rhonchi, wheezing, or crackles. No accessory muscle u se. Heart: Regular rate and rhythm. No extra sounds. Abdomen: Soft, nontender. Bowel sounds positive. No organomegaly. No masses or hernia. No rigidi ty or rebound. Extremities: No clubbing, cyanosis. Intact pulses. Skin: No rash. No nodules. Neurologic: Alert, awake,. No acute focal deficits appreciated. Investigations: Echocardiograms with normal ejection fraction. Creatinine is 1.25. Assessment And Recommendations: 1.Cardiac pauses on telemetry. They were less than 3 seconds and happened after premature atrial co ntractions. The patient is asymptomatic. Normal echo. We will monitor for now. Encouraged and cou nseled in details against drugs. 2.Acute renal failure due to dehydration. Rhabdomyolysis is improving and creatinine is back to nor mal. Thank you for the consult. Cardiology will sign off. SR/MODL Voice ID: [id number] Report ID: [id number]
[2021-10-12] MEDS: AMOX/K CLAV 875 MG TAB PO SCH (21:36)
--- NOTE | 2021-10-12 23:52 | P.PN ---
Subjective Date of Service: 10/12/21 Subjective: No new changes, No C/O voiced, Improving Review of Systems 10-point ROS is otherwise unremarkable Physical Examination - Vital Signs Temperature: 97.0 F Blood Pressure: 141/99 Pulse: 91 Respirations: 21 Pulse Ox (%): 97 - Physical Exam General: Alert, In no apparent distress, Oriented x3 Respiratory: Clear to auscultation bilaterally, Normal air movement Cardiovascular: Regular rate/rhythm, Normal S1 S2 Gastrointestinal: Normal bowel sounds, Soft and benign, Non-distended, No tenderness Musculoskeletal: No clubbing, No swelling, No tenderness Neurological: Normal speech, Normal tone, Cranial nerves 3-12 intact, Abnormal strength (RIGHT UPPER EXTREMITY WEAKNESS) - Studies Medications List Reviewed: Yes Assessment & Plan - Problems (Diagnosis) (1) Tuesday night paralysis of right upper extremity Current Visit: Yes Status: Acute (2) Leukocytosis Current Visit: Yes Status: Acute (3) Rhabdomyolysis Current Visit: Yes Status: Acute (4) Polysubstance (excluding opioids) dependence Current Visit: Yes Status: Acute - Plan PLAN: 1. ARRANGE FOR DISCHARGE IN A.M. WITH NEUROLOGY FOLLOW-UP; [facility] OUTPATIENT 2. MONITOR LABS 3. CARDIOLOGY CONSULTATION FOR SINUS PAUSE 4. DC IN A.M. - Advance Directives Does patient have a Living Will: No Does patient have a Durable POA for Healthcare: No
[2021-10-13] MEDS ORDERED: TRAMADOL HCL 50 MG TAB PO ONE (05:01)
[2021-10-13 05:11] LABS: Absolute Lymphocytes (CBC) 1.5 K/uL (0.7-4.9); Hematocrit 39.5 % (39.6-49.0); Lymphocytes % 14.2 % (15.3-44.8); MCV 87.7 fL (80-100); MPV 7.7 fL (7.6-11.3); RBC Red Blood Cell Count 4.51 M/uL (4.33-5.43)
[2021-10-13 05:41] LABS: Albumin 2.9 g/dL (3.4-5.0); Bilirubin Total 0.4 mg/dL (0.2-1.0); C-Reactive Protein 71.1 mg/L (<3.00); Magnesium 2.1 mg/dL (1.8-2.4); Potassium 3.8 mmol/L (3.5-5.1); Protein, Total 7.2 g/dL (6.4-8.2)
--- NOTE | 2021-10-13 06:02 | ECHO ---
HEIGHT: 5 ft 6 in WEIGHT: 164 lb 3 oz DATE OF STUDY: 10/12/[address]: Baryan Tripp MD 2-DIMENSIONAL: YES M.MODE: YES DOPPLER: YES COLOR FLOW: YES TDS: PORTABLE: YES DEFINITY: BUBBLE STUDY: DIAGNOSIS: CARDIOEMBOLIC CEREBRAL VASCULAR ACCIDENT CARDIAC HISTORY: CATHERIZATION: NO SURGERY: NO PROSTHETIC VALVE: NO PACEMAKER: NO MEASUREMENTS (cm) DIASTOLIC (NORMALS) SYSTOLIC (NORMALS) IVSd 1.1 (0.6-1.2) LA Diam 3.3 (1.9-4.0) LVEF 61% LVIDd 4.6 (3.5-5.7) LVIDs 3.1 (2.0-3.5) %FS 32% LVPWd 1.0 (0.6-1.2) Ao Diam 2.7 (2.0-3.7) 2 DIMENSIONAL ASSESSMENT: RIGHT ATRIUM: NORMAL LEFT ATRIUM: NORMAL RIGHT VENTRICLE: NORMAL LEFT VENTRICLE: NORMAL TRICUSPID VALVE: NORMAL MITRAL VALVE: NORMAL PULMONIC VALVE: NORMAL AORTIC VALVE: NORMAL PERICARDIAL EFFUSION: NONE AORTIC ROOT: NORMAL LEFT VENTRICULAR WALL MOTION: NORMAL DOPPLER/COLOR FLOW: NORMAL COMMENTS: NORMAL LEFT VENTRICULAR EJECTION FRACTION 55-60%. NORMAL WALL MOTION. NORMAL ECHOCARDIOGRAM. BUBBLE STUDY WAS NOT CLEAR TO REPEAT FOCUSED ECHOCARDIOGRAM FOR BUBBLES. TECHNOLOGIST: MICHELLE MISHRA
[2021-10-13] MEDS: ATORVASTATIN 40 MG TAB PO SCH (07:37)
[2021-10-13] MEDS: ASPIRIN 81 MG CHEWABLE TABLET PO SCH (07:38)
[2021-10-13] MEDS: FOLIC ACID 1 MG TABLET PO SCH (07:38)
[2021-10-13 08:24] VITALS: TEMP 97
--- NOTE | 2021-10-13 08:31 | P.DS ---
Discharge Date: 10/13/21 Disposition: ROUTINE DISCHARGE Discharge Condition: GOOD Reason for Admission: Altered Mental Status - Problems (1) Tuesday night paralysis of right upper extremity Current Visit: Yes Status: Acute (2) Leukocytosis Current Visit: Yes Status: Acute (3) Rhabdomyolysis Current Visit: Yes Status: Acute (4) Polysubstance (excluding opioids) dependence Current Visit: Yes Status: Acute Brief History of Present Illness: Mr. Vic Hernandez is a 30 year old male who has a past medical history of hypertension who presents to the [facility] Emergency Department for altered mental status. History is extremely limited as he is altered and minimally responsive. Per discussion with the ED provider, he was dropped off in the emergency department lobby by his presumed friends. He is not communicating or providing a history. He appears to be overdosed on drugs. Upon presentation, his vital signs were notable for a heart rate of 107 bpm and a respiratory rate of 24 breaths/min. His laboratory studies were notable for a WBC count of 22,800, a BUN of 57, a creatinine of 2.49 (was 0.79 on 08/25/2020), a creatinine kinase of 4449, and an AST of 114. Blood cultures x 2 were obtained. EKG revealed sinus tachycardia without STEMI criteria. Chest x-ray revealed, "no acute cardiopulmonary process." CT head/cervical spine revealed, " negative CT head examination for acute or significant finding. Negative CT cervical spine examination for acute or significant finding." CT abdomen/pelvis revealed, "patchy bilateral lung base opacification is present with assessment created due to motion. This is most likely atelectasis though a component of aspiration cannot be excluded. CT abdomen and pelvis imaging shows no significant or suspicious finding." In the Emergency Department, he was given 2 L normal saline, ceftriaxone, azithromycin, and 2 mg of naloxone. He was admitted to the General Internal Medicine service for further evaluation. Hospital Course: Patient was diagnosed with Tuesday night palsy. Patient is doing well at this time and the strength is improving. At this time is stable for discharge he can follow-up with neurology as an outpatient. He did have sinus pause which was less than 3 seconds and cardiology has cleared him from that standpoint. Outpatient follow-up with neurology in 1 week. Plan is for possible EMG studies. Vital Signs/Physical Exam: Temp Pulse Resp BP Pulse Ox 97.0 F 91 H 21 H 141/99 H 97 10/13/21 08:23 10/13/21 08:23 10/13/21 08:23 10/13/21 08:23 10/13/21 08:23 General: Alert, In no apparent distress, Oriented x3 Laboratory Data at Discharge: WBC 10.90 K/uL (4.3-10.9) D 10/13/21 04:29 Hgb 13.6 g/dL (13.6-17.9) 10/13/21 04:29 Hct 39.5 % (39.6-49.0) L 10/13/21 04:29 Plt Count 306 K/uL (152-406) 10/13/21 04:29 PT 13.4 SECONDS (9.5-12.5) H 10/11/21 04:38 INR 1.21 10/11/21 04:38 APTT 30.5 SECONDS (24.3-36.9) 10/10/21 20:16 Sodium Cancelled 10/13/21 05:00 Potassium Cancelled 10/13/21 05:00 BUN Cancelled 10/13/21 05:00 Creatinine Cancelled 10/13/21 05:00 Glucose Cancelled 10/13/21 05:00 Phosphorus 2.3 mg/dL (2.5-4.9) L 10/11/21 04:38 Magnesium 2.1 mg/dL (1.8-2.4) D 10/13/21 04:29 Total Bilirubin Cancelled 10/13/21 05:00 AST Cancelled 10/13/21 05:00 ALT Cancelled 10/13/21 05:00 Alkaline Phosphatase Cancelled 10/13/21 05:00 Triglycerides 95 mg/dL (<150) 10/12/21 04:45 Cholesterol 78 mg/dL (<200) 10/12/21 04:45 HDL Cholesterol 31 mg/dL (40-60) L 10/12/21 04:45 Cholesterol/HDL Ratio 2.52 10/12/21 04:45 Home Medications: Amox/Clavulanate [Augmentin 875-125 Tab*] 875 mg PO BID #10 tab 10/12/21 Aspirin Chewable [Aspirin Chewable*] 81 mg PO DAILY #30 tab.chew 10/12/21 Atorvastatin Calcium [Lipitor] 40 mg PO DAILY #30 tab 10/12/21 Thiamine HCl [Vitamin B-1*] 100 mg PO DAILY #30 10/12/21 New Medications: Aspirin Chewable [Aspirin Chewable*] 81 mg PO DAILY #30 tab.chew Amox/Clavulanate [Augmentin 875-125 Tab*] 875 mg PO BID #10 tab Atorvastatin Calcium [Lipitor] 40 mg PO DAILY #30 tab Thiamine HCl [Vitamin B-1*] 100 mg PO DAILY #30 Physician Discharge Instructions: -DC IV and DC home -Follow-up with PCP in 1 to 2 weeks -Follow-up with Cardiology and Neurology in 1 to 2 weeks -Please call Dr. Amaya at [phone] if any questions regarding hospital stay -Please call nursing station at [phone] if any nursing or medication questions -Return to the emergency room if symptoms worsen Diet: AHA Activity: Fall precautions Followup: NONE,NONE [Primary Care Provider] - Time spent managing pt's care (in minutes): 35
[2021-10-13] MEDS ORDERED: THIAMINE HCL 100 MG TABLET PO SCH (09:00)
[2021-10-13] MEDS ORDERED: POTASSIUM CL SA 10 MEQ TAB PO ONE (09:00)
[2021-10-13 09:27] VITALS: O2SAT 96
[2021-10-13] MEDS: AMOX/K CLAV 875 MG TAB PO SCH (11:13)
[2021-10-13 13:00] VITALS: BP 132/97
== END 2021-10-13 13:30 | disposition home or self-care (01) | DRG 871 ==
LOC: ER 10:02 → ERHOLD 16:49 → 3RD-ICU 17:48
PROVIDERS: ADMIT Internal Medicine; ATTEND Internal Medicine
DX: A41.9 Sepsis, unspecified organism (principal); G92.8 Other toxic encephalopathy; J18.9 Pneumonia, unspecified organism; J69.0 Pneumonitis due to inhalation of food and vomit; M62.82 Rhabdomyolysis; N17.9 Acute kidney failure, unspecified; G83.89 Other specified paralytic syndromes; R65.20 Severe sepsis without septic shock; D72.829 Elevated white blood cell count, unspecified; I49.1 Atrial premature depolarization; F19.10 Other psychoactive substance abuse, uncomplicated; E86.0 Dehydration; T43.621A Poisoning by amphetamines, accidental (unintentional), initial encounter; T42.4X1A Poisoning by benzodiazepines, accidental (unintentional), initial encounter; T40.5X1A Poisoning by cocaine, accidental (unintentional), initial encounter; I10 Essential (primary) hypertension; Z20.822 Contact with and (suspected) exposure to COVID-19
CPT/HCPCS: 36415; 51702; 70450; 70544; 70549; 70553; 71045; 71250; 72125; 74176; 80048; 80053; 80061; 80076; 80307; 80320; 80329; 81003; 82550; 82607; 82805; 83036; 83605; 83735; 84100; 84145; 84443; 85025; 85610; 85730; 86140; 87040; 87811; 93005; 93306; 94640; 96361; 96365; 96375; 97110; 97112; 97116; 97161; 97165; 99291; 99292; A9577; J0456; J2270; J2310; J3411; J7030; J7040; J7050; J7120

== ENCOUNTER 2024-05-18 22:53 | Observation (INO) | payer SELFPAY ==
--- OUTSIDE RECORDS SUMMARY | 2024-05-18 22:55 | XMS REPORT | Continuity of Care Document ---
Author Name Unknown Address [address] [facility] [address] [place] [address] [facility] Address [address] [facility]. [address] [place] [address] Care Team Providers Care Sales Planning Analyst Name Role Phone Tess Boggs Attending Clinician [phone] Doctor Unassigned, [place] Attending Clinician U jason Jurado RN, Clarita Angulo Attending Clinician Unavaila Geena Braxton Attending Clinician [phone] GEENA NAVA Attending Clinician Unavailable Kassandra Ybarra NP Attending Clinician [phone] Problems Condition Name Condition Details Condition Category Status Onset Date Resolution Date Last Treatment Date Treating Clinician Comments Source No known active problems No known active problems Disease [facility] Allergies, Adverse Reactions, Alerts Allergy Name Allergy Type Status Severity Reaction(s) Onset Date Inactive Date Treating Clinician Comments Source NO KNOWN ALLERGIE S Drug Class Active [facility] Social History Social Habit Start Date Stop Date Quantity Comments Source Exposure to SARS-CoV-2 (event) Not sure [facility] Sex Assigned At 1990 00:00:00 1990 00:00:00 [facility] Smoking Status Start Date Stop Date Source Unknown if ever smoked [facility] Medications Ordered Medication Name Filled Medication Name Start Date Stop Date Current Medication? Ordering Clinician Indication Dosage Frequency Signature (SIG) Comments Components Source hydrOXYzine (ATARAX) tablet 25 mg 08-09 18:45: 00 08-09 17:59 :00 No 25mg 25 mg, Oral, ONCE, 1 dose, 08/09/20 at 1345, JOEL [facility] ondansetron (ZOFRAN-ODT ) disintegrat ing tablet 4 mg 08-09 18:45: 00 08-09 17:59 :00 No 4mg 4 mg, Oral, ONCE, 1 dose, 08/09/20 at 1345, Routine [facility] ondansetron (ZOFRAN ODT) 4 mg disintegrat ing tablet 08-09 00:00: 00 Yes [id number] 4mg Take 1 tablet by mouth every 8 (eight) hours as needed for Nausea and Vomiting (N/V). [facility] cephALEXin (KEFLEX) capsule 500 mg 10-21 02:30: 00 10-21 01:42 :00 No 500mg 500 mg, Oral, ONCE, 1 dose, Tue10/20/18 at 2130, JOEL
Re ason for Anti-Infec tive: Documented Infection< br>Documen serina Infection Site: Skin / Soft Tissue
Duration of Therapy: 7 days [facility] ibuprofen (IBU) tablet 800 mg 10-21 02:30: 00 10-21 01:42 :00 No 800mg 800 mg, Oral, ONCE, 1 dose, Tue10/20/18 at 2130, JOEL [facility] losartan 50 mg tablet 10-21 01:51: 54 Yes 50mg Take 50 mg by mouth daily. [facility] ibuprofen 600 mg tablet 10-20 00:00: 00 Yes [id number] 600mg Take 1 tablet by mouth every 6 (six) hours as needed for Pain (scale 1-3). [facility] chlorhexidi ne 4 % external liquid 10-20 00:00: 00 Yes [id number] Apply to area(s) once daily as needed for Wound care. [facility] cephALEXin (KEFLEX) 500 mg capsule 10-20 00:00: 00 10-28 04:59 :00 No [id number] 500mg Take 1 capsule by mouth 4 (four) times daily for 7 days. [facility] Vital Signs Vital Name Observation Time Observation Value Comments S ource Systolic blood pressure 2020-08-09 17:30:00 150 mm[Hg] [facility] Diastolic blood pressure 2020-08-09 17:30:00 97 mm[Hg] [facility] Heart rate 2020-08-09 17:30:00 96 /min [facility] Body temperature 2020-08-09 17:30:00 36.89 [facility] Respiratory rate 2020-08-09 17:30:00 18 /min [facility] Body weight 2020-08-09 17:30:00 77.111 kg [facility] BMI 2020-08-09 17:30:00 25.85 kg/m2 [facility] Oxygen saturation in Arterial blood by Pulse oximetry 2020-08-09 17:30:00 97 /min [facility] Systolic blood pressure 2020-08-09 17:30:00 150 mm[Hg] [facility] Diastolic blood pressure 2020-08-09 17:30:00 97 mm[Hg] [facility] Heart rate 2020-08-09 17:30:00 96 /min [facility] Body temperature 2020-08-09 17:30:00 36.89 Lig[facility] Respiratory rate 2020-08-09 17:30:00 18 /min [facility] Body weight 2020-08-09 17:30:00 77[facility]111 [facility] BMI 2020-08-09 17:30:00 25.85 kg/m2 [facility] Oxygen saturation in Arterial blood by Pulse oximetry 2020-08-09 17:30:00 97 /min [facility] Body weight 2020-03-10 01:06:00 77.111 kg [facility] BMI 2020-03-10 01:06:00 25.85 kg/m2 [facility] Systolic blood pressure 2020-03-10 01:05:00 110 mm[Hg] [facility] Diastolic blood pressure 2020-03-10 01:05:00 78 mm[Hg] [facility] Heart rate 2020-03-10 01:05:00 83 /min [facility] Body temperature 2020-03-10 01:05:00 37.06 Lig[facility] Respiratory rate 2020-03-10 01:05:00 18 /min [facility] Body height 2020-03-10 01:05:00 172.7 cm [facility] Oxygen saturation in Arterial blood by Pulse oximetry 2020-03-10 01:05:00 100 /min [facility] Body weight 2020-03-10 01:06:00 77.111 kg [facility] BMI 2020-03-10 01:06:00 25.85 kg/m2 [facility] Systolic blood pressure 2020-03-10 01:05:00 110 mm[Hg] [facility] Diastolic blood pressure 2020-03-10 01:05:00 78 mm[Hg] [facility] Heart rate 2020-03-10 01:05:00 83 /min [facility] Body temperature 2020-03-10 01:05:00 37.06 Ligia [facility] Respiratory rate 2020-03-10 01:05:00 18 /min [facility] Body height 2020-03-10 01:05:00 172.7 cm [facility] Oxygen saturation in Arterial blood by Pulse oximetry 2020-03-10 01:05:00 100 /min [facility] Systolic blood pressure 2018-10-21 01:06:00 134 mm[Hg] [facility] Diastolic blood pressure 2018-10-21 01:06:00 77 mm[Hg] [facility] Heart rate 2018-10-21 01:06:00 98 /min [facility] Body temperature 2018-10-21 01:06:00 37.11 Lig[facility] Respiratory rate 2018-10-21 01:06:00 20 /min [facility] Body height 2018-10-21 01:06:00 167.6 cm [facility] Body weight 2018-10-21 01:06:00 77.111 kg [facility] BMI 2018-10-21 01:06:00 27.44 kg/m2 [facility] Oxygen saturation in Arterial blood by Pulse oximetry 2018-10-21 01:06:00 98 /min [facility] Systolic blood pressure 2018-10-21 01:06:00 134 mm[Hg] [facility] Diastolic blood pressure 2018-10-21 01:06:00 77 mm[Hg] [facility] Heart rate 2018-10-21 01:06:00 98 /min [facility] Body temperature 2018-10-21 01:06:00 37.11 Lig[facility] Respiratory rate 2018-10-21 01:06:00 20 /min [facility] Body height 2018-10-21 01:06:00 167.6 cm [facility] Body weight 2018-10-21 01:06:00 77.111 kg [facility] BMI 2018-10-21 01:06:00 27.44 kg/m2 [facility] Oxygen saturation in Arterial blood by Pulse oximetry 2018-10-21 01:06:00 98 /min [facility] Procedures Procedure Date / Time Performed Performing Clinicia n Source URINALYSIS 2020-08-09 17:48:00 Tess [facility] CONSENT/REFUSAL FOR DIAGNOSIS AND TREATMENT 2020-08-09 17:15:05 Doctor Unassigned, [place] [facility] NOTICE OF PRIVACY PRACTICES 2020-03-10 00:50:22 Doctor Unassigned, [place] [facility] CONSENT/REFUSAL FOR DIAGNOSIS AND TREATMENT 2020-03-10 00:49:54 Doctor Unassigned, [place] [facility] NOTICE OF PRIVACY PRACTICES 2018-10-21 00:57:37 Doctor Unassigned, [place] [facility] CONSENT/REFUSAL FOR DIAGNOSIS AND TREATMENT 2018-10-21 00:56:48 Doctor Unassigned, [place] [facility] Encounters Start Date/Time End Date/Time Encounter Type Admission Type Attending [facility] Care Facility Care Department Encounter ID Source 2023-04-22 15:21:11 2023-04-22 15:21:11 Outpatient [facility] [id number] Agustin Martin 2023-02-07 14:08:34 2023-02-07 14:08:34 Outpatient [facility] [id number] Agustin Martin 2020-08-09 12:33:00 2020-08-09 13:51:00 [facility] [id number] [id number] 4.2.7.2.686 [id number] [facility] 2020-08-09 12:33:00 2020-08-09 13:51:00 [facility] [id number] 350.1.13.10 4.2.7.2.686 [id number] 2020-08-09 12:17:00 2020-08-09 12:17:00 Emergency X [facility] ERT [id number] [facility] 2020-08-09 00:00:00 2020-08-09 00:00:00 Orders Only Doctor Unassigned, [place] [facility] [id number] 350.1.13.10 4.2.7.2.686 [id number] [facility] 2020-08-09 00:00:00 2020-08-09 00:00:00 Orders Only Doctor Unassigned, [place] [facility] [id number] 350.1.13.10 4.2.7.2.686 [id number] 2020-03-16 00:00:00 2020-03-16 00:00:00 Telephone Clarita Jurado [facility] [id number] 350.1.13.10 4.2.7.2.686 [id number] [facility] 2020-03-16 00:00:00 2020-03-16 00:00:00 Telephone Clarita Jurado [facility] 1.2.840.114 350.1.13.10 4.2.7.2.686 [id number] 2020-03-09 19:09:00 2020-03-09 19:31:00 Emergency Geena Nava [facility] [id number] 350.1.13.10 4.2.7.2.686 [id number] 2020-03-09 19:09:00 2020-03-09 19:31:00 Emergency Geena Nava [facility] [id number] 350.1.13.10 4.2.7.2.686 [id number] [facility] 2020-03-09 19:09:00 2020-03-09 19:09:00 Emergency X GEENA NAVA [facility] ERT [id number] [facility] 2018-10-20 20:09:23 2018-10-20 21:25:00 Emergency Kassandra Ybarra [facility] [id number] 350.1.13.10 4.2.7.2.686 [id number] 2018-10-20 20:09:23 2018-10-20 21:25:00 Emergency Kassandra Ybarra [facility] [id number] 350.1.13.10 4.2.7.2.686 [id number] [facility] Results Test Description Test Time Test Comments Results Result Co mments Source COMPREHENSIVE METABOLIC [id number] 04:49:20* Test Item Value Reference Range Interpretation Comme nts GLUCOSE (test code = 2217) 93 MG/DL 70-99 BUN (test code = 2208) 20 MG/DL 6-20 CREATININE (test code = 2214) 1.21 MG/DL 0.80-1.40 eGFR (2020 CKD-EPI) (test code = 01796) 81 ML/MIN/1.73 >60 CALC BUN/CREAT (test code = 2235) 17 RATIO 6-28 SODIUM (test code = 2231) 140 MEQ/L 133-146 POTASSIUM (test code = 2228) 4.6 MEQ/L 3.5-5.4 CHLORIDE (test code = 2215) 103 MEQ/L 95-107 CARBON DIOXIDE (test code = 2206) 23 MEQ/L 19-31 CALCIUM (test code = 2208) 10.6 MG/DL 8.5-10.5 H PROTEIN, TOTAL (test code = 2228) 7.6 G/DL 6.1-8.3 ALBUMIN (test code = 2200) 4.9 G/DL 3.5-5.2 CALC GLOBULIN (test code = 2240) 2.7 G/DL 1.9-3.7 CALC A/G RATIO (test code = 2233) 1.8 RATIO 1.0-2.6 BILIRUBIN, TOTAL (test code = 2206) 0.2 MG/DL <=1.2 ALKALINE PHOSPHATASE (test code = 2203) 66 U/L 40-112 AST (test code = 2217) 41 U/L 9-50 ALT (test code = 2218) 68 U/L 5-50 H UNLESS OTHERWISE INDICATED, ALL TESTING PERFORMED AT [facility] [address] [place] [address] MAPPING ENGINEER: CHETAN HUGHES M.D. CLIA NUMBER [id number] [facility] [place] [place]. [id number] HEMOGLOBIN [id number] 02:34:11* Test Item Value Reference Range Interpretation Comme nts HEMOGLOBIN A1c (test code = 88352) 5.3 % 4.2-5.6 LIPID [id number] 04:18:59* Test Item Value Reference Range Interpretation Comme nts CHOLESTEROL (test code = 2210) 136 MG/DL <200 TRIGLYCERIDES (test code = 223) 203 MG/DL <150 H HDL CHOLESTEROL (test code = 2220) 31 MG/DL >39 L CALC LDL CHOL (test code = 2237) 76 MG/DL <100 NOTE: CALCULATED LDL IS BASED ON CY-VAZQUEZ METHOD WHICHINCLUDES ADJUSTABLE TRIGLYCERIDE:VLDL CHOLESTEROL RATIO.THIS FACTOR VARIES BY MEASURED TRIGLYCERIDE AND NON-HDLCHOLESTEROL CONCENTRATIONS WITH INCREASED CALCULATED LDL SEENIN HIGHER TRIGLYCERIDE OR LOWER NON-HDL SPECIMENS. FOR MOREINFORMATION, SEE CLIENT ANNOUNCEMENT AT [email or web address] RATIO LDL/HDL (test code = 2238) 2.45 RATIO <3.55 COMPREHENSIVE METABOLIC [id number] 04:18:59* Test Item Value Reference Range Interpretation Comme nts GLUCOSE (test code = 2216) 102 MG/DL 70-99 H BUN (test code = 2207) 22 MG/DL 6-20 H CREATININE (test code = 2214) 1.27 MG/DL 0.80-1.40 EFFECTIVE 2020, [facility] HAS IMPLEMENTED THE NKF-ASN RECOMMENDED KD-EPI EGFR REFIT CALCULATION THAT DOES NOT INCLUDE A COEFFICIENT FORRACE. FOR MORE INFORMATION, SEE ANNOUNCEMENT [email or web address] eGFR (2020 CKD-EPI) (test code = 78695) 77 ML/MIN/1.73 >60 CALC BUN/CREAT (test code = 2234) 17 RATIO 6-28 SODIUM (test code = 2230) 140 MEQ/L 133-146 POTASSIUM (test code = 2227) 4.3 MEQ/L 3.5-5.4 CHLORIDE (test code = 2214) 101 MEQ/L 95-107 CARBON DIOXIDE (test code = 2205) 28 MEQ/L 19-31 CALCIUM (test code = 220) 10.2 MG/DL 8.5-10.5 PROTEIN, TOTAL (test code = 2228) 7.5 G/DL 6.1-8.3 ALBUMIN (test code = 2200) 4.7 G/DL 3.5-5.2 CALC GLOBULIN (test code = 2240) 2.8 G/DL 1.9-3.7 CALC A/G RATIO (test code = 2233) 1.7 RATIO 1.0-2.6 BILIRUBIN, TOTAL (test code = 2206) 0.7 MG/DL See_Comment [Automated me ssage] The system which generated this result transmitted reference range: <=1.2. The reference range was not used to interpret this result as normal/abnormal. ALKALINE PHOSPHATASE (test code = 2203) 75 U/L 40-112 AST (test code = 2218) 14 U/L 9-50 ALT (test code = 2219) 19 U/L 5-50 UNLESS OTHERWISE INDICATED, [facility]MED [facility] [address] [place] [address] MAPPING ENGINEER: SHAWN BHATIA M.D. [place] NUMBER [id number] [facility] [place]. [id number] 18:03:51* Test Item Value Reference Range Interpretation Comme nts APPEARANCE (test code = 7172934321) Clear Clear COLOR (test code = 4640102118) Yellow Yellow PH (test code = 0500134912) 4.8-8.0 SP GRAVITY (test code = 4875886474) 1.003-1.030 GLU U QUAL (test code = 2782539491) Normal Normal BLOOD (test code = 5414266037) Negative Negative KETONES (test code = 3761325509) Negative Negative PROTEIN (test code = 2887-8) Negative Negative UROBILIN (test code = 8194196590) Normal Normal BILIRUBIN (test code = 2491322056) Negative Negative NITRITE (test code = 9320063083) Negative Negative LEUK MED (test code = 1838374758) Negative Negative RBC/HPF (test code = 7321610625) See_Comment [Automated [employer]] The system which generated this result transmitted reference range: 0 - 3 HPF. The reference range was not used to interpret this result as normal/abnormal. WBC/HPF (test code = 5047774077) See_Comment [Automated [employer]] The system which generated this result transmitted reference range: 0 - 5 HPF. The reference range was not used to interpret this result as normal/abnormal. BACTERIA (test code = 9764361702) Negative Negative MUCOUS (test code = 9064263894) Slight Negative LPF A SQ EPITH (test code = 5291003585) <1 HPF Lab Interpretation (test code = 58653-5) Abnormal [facility]
[2024-05-19] MEDS ORDERED: METOPROLOL XL 50 MG TAB PO ONE (00:03)
[2024-05-19] MEDS ORDERED: ASPIRIN 81 MG CHEWABLE TABLET ONE (00:03)
[2024-05-19] MEDS ORDERED: NA CHLORIDE 0.9% 1,000 ML ONE ×2 (00:04→04:26)
[2024-05-19] MEDS ORDERED: FAMOTIDINE 20 MG/2 ML VIAL IV ONE (00:04)
[2024-05-19 00:06] LABS: Absolute Basophils 0.1 K/uL (0-0.5); Absolute Eosinophils 0.1 K/uL (0-0.5); Absolute Lymphocytes (CBC) 2.6 K/uL (0.7-4.9); Absolute Monocytes 0.6 K/uL (0.1-1.3); Absolute Neutrophil 5.6 K/uL (1.8-8.0); Basophils % 1.2 % (0-1.3); Eosinophils % 1.6 % (0-4.4); Hematocrit 39.1 % (39.6-49.0); Hemoglobin 14.1 g/dL (13.6-17.9); Lymphocytes % 28.5 % (15.3-44.8); MCH 31.3 pg (27.0-35.0); MCHC 36.1 g/dL (32.0-36.0); MCV 86.8 fL (80-100); MPV 7.8 fL (7.6-11.3); Monocytes % 6.6 % (3.3-12.3); Neutrophils % 62.1 % (41.7-73.7); Nucleated Red Blood Cells % 0.1 % (0-0); Platelets 284 thou/uL (152-406); RBC Red Blood Cell Count 4.51 M/uL (4.33-5.43); Red Cell Distribution Width 12.8 % (12.1-15.2)
[2024-05-19 00:25] LABS: ALT/SGPT 75 U/L (16-61); AST/SGOT 29 U/L (15-37); Albumin 3.8 g/dL (3.4-5.0); Albumin/Globulin Ratio 1.1 (1.1-1.8); Alkaline Phosphatase 83 U/L (45-117); Anion Gap 9.3 mEq/L (5.0-15.0); BUN Blood Urea Nitrogen 23 mg/dL (7-18); Bicarbonate 28 mEq/L (21-32); Bilirubin Total 0.3 mg/dL (0.2-1.0); Globulin 3.5 g/dL (2.3-3.5); Glomerular Filtration Rate 76 ml/min (=/>90); Glucose Level 125 mg/dL (74-106); Lipase 45 U/L (13-75); Magnesium 2.3 mg/dL (1.6-2.4); NT PRO-BNP 28 pg/mL (<125); Potassium 3.3 mEq/L (3.5-5.1); Protein, Total 7.3 g/dL (6.4-8.2); Sodium Level 138 mEq/L (136-145); Troponin High Sensitivity 48.9 pg/mL (<58.9)
[2024-05-19 00:28] LABS: Bilirubin Direct < 0.2 mg/dL (0-0.2); Bilirubin Indirect, Calculated 0.1 mg/dL (0.2-0.8)
[2024-05-19 00:29] LABS: D-Dimer 0.591 FEUug/mL (0-0.500); PT Prothrombin Time 9.6 SECONDS (10-13.0); Protime INR 0.83
--- NOTE | 2024-05-19 02:25 | ER ---
Nurse's Notes [facility] Name: Vic Hernandez Age: 33 yrs Sex: Male : 1990 Arrival Date: 05/18/2024 Time: 22:53 Bed 6 Private MD: Diagnosis: Dyspnea;Essential (primary) hypertension;Chest pain, unspecified;Cocaine abuse;Anxiety disorder, unspecified;Alcohol abuse, uncomplicated;Hypokalemia;Cardiomegaly Presentation: 05/18 23:23 Chief complaint: Patient states: I went to lay after working all day and i got short of bm8 breath. Coronavirus screen: Vaccine status: Patient reports receiving the 2nd dose of the covid vaccine. At this time, the client does not indicate any symptoms associated with coronavirus-19. Ebola Screen: Patient negative for fever greater than or equal to 101.5 degrees Fahrenheit, and additional compatible Ebola Virus Disease symptoms Patient denies exposure to infectious person. Patient denies travel to an Ebola-affected area in the 21 days before illness onset. No symptoms or risks identified at this time. Initial Sepsis Screen: Does the patient meet any 2 criteria? No. Patient's initial sepsis screen is negative. Does the patient have a suspected source of infection? No. Patient's initial sepsis screen is negative. Risk Assessment: Do you want to hurt yourself or someone else? Patient reports no desire to harm self or others. Onset of symptoms was May 18, 2024 at 21:00. 23:23 Method Of Arrival: Ambulatory bm8 23:23 Acuity: ARISTIDES 3 bm8 Triage Assessment: 23:25 General: Appears in no apparent distress. comfortable, Behavior is calm, cooperative, bm8 appropriate for age. Pain: Denies pain. EENT: No deficits noted. No signs and/or symptoms were reported regarding the EENT system. Neuro: No deficits noted. Level of Consciousness is awake, alert, obeys commands, Oriented to person, place, time, situation, Appropriate for age. Cardiovascular: Denies chest pain, Heart tones S1 S2 present Capillary refill < 3 seconds in bilateral fingers Patient's skin is warm and dry. Respiratory: Reports shortness of breath Airway is patent Trachea midline Respiratory effort is even, unlabored, Respiratory pattern is regular, symmetrical, Breath sounds are clear bilaterally. Onset: The symptoms/episode began/occurred suddenly, the patient reports symptoms have resolved. GI: No signs and/or symptoms were reported involving the gastrointestinal system. : No signs and/or symptoms were reported regarding the genitourinary system. Derm: No signs and/or symptoms reported regarding the dermatologic system. Musculoskeletal: No signs and/or symptoms reported regarding the musculoskeletal system. Historical: - Allergies: 23:25 No Known Allergies; bm8 - PMHx: 23:25 ADD/ADHD; Anxiety; Heart Arrythmia; Hypertension; bm8 - PSHx: 23:25 None; bm8 - Immunization history:: Adult Immunizations up to date. - Infectious Disease History:: Denies. - Social history:: Smoking status: Patient reports the use of cigarette tobacco products, denies chronic smoking, but will smoke occasionally, Patient uses alcohol, Patient/guardian denies using. Screenin/29 00:27 [facility] ED Fall Risk Assessment (Adult) History of falling in the last 3 months, jb4 including since admission No falls in past 3 months (0 pts) Confusion or Disorientation No (0 pts) Intoxicated or Sedated No (0 pts) Impaired Gait No (0 pts) Mobility Assist Device Used No (0 pt) Altered Elimination No (0 pt) Score/Fall Risk Level 0 - 2 = Low Risk Oriented to surroundings, Maintained a safe environment. Abuse screen: Denies threats or abuse. Nutritional screening: No deficits noted. Tuberculosis screening: No symptoms or risk factors identified. Assessment: 05/18 23:59 General: Appears in no apparent distress. comfortable, Behavior is cooperative, jb4 appropriate for age, anxious. Pain: Denies pain. Neuro: Level of Consciousness is awake, alert, obeys commands, Oriented to person, place, time, situation. Cardiovascular: Patient's skin is warm and dry. Rhythm is sinus rhythm. Respiratory: Airway is patent Respiratory effort is even, unlabored, Respiratory pattern is regular, symmetrical. Derm: Skin is intact, Skin is pink, warm \T\ dry. 05/19 02:30 General: PT to DC after final imaging results . lg3 Vital Signs: 05/18 23:23 BP 171 / 109; Pulse 73; Resp 18; Temp 98.5; Pulse Ox 99% ; Weight 90.72 kg; Height 5 bm8 ft. 7 in. ; Pain 0/10; 23:59 BP 175 / 105; Pulse 67; Resp 16; Pulse Ox 98% on R/A; jb4 05/19 03:19 BP 209 / 112; Pulse 68; Resp 18; Pulse Ox 98% ; cp4 05:24 BP 158 / 116; Pulse 71; Resp 18; Pulse Ox 99% ; cp4 05/18 23:23 Body Mass Index 31.32 (90.72 kg, 170.18 cm) bm8 05/18 23:23 Pain Scale: Adult [facility] ED Course: 05/18 22:54 Patient arrived in ED. rg4 23:25 Triage completed. bm8 23:25 Arm band placed on right wrist. bm8 23:38 Alvarez Leiva MD is Attending Physician. shawn 23:41 No provider procedures requiring assistance completed. Initial lab(s) drawn, by sd, elham sent to lab. Inserted saline lock: 20 gauge in right antecubital area, using aseptic technique. Blood collected. Flushed with 10 mL NS. 23:42 EKG done, by ED staff, reviewed by Alvarez Leiva MD. bm8 23:45 Bello Juan, RN is Primary Nurse. jb4 05/19 00:00 Lipase Sent. jb4 00:00 D-Dimer Sent. jb4 00:00 Basic Metabolic Panel Sent. jb4 00:00 CBC with Diff Sent. jb4 00:00 Troponin HS Sent. jb4 00:00 PT-INR Sent. jb4 00:00 NT PRO-BNP Sent. jb4 00:00 Magnesium Sent. jb4 00:00 LFT's Sent. jb4 00:27 Patient has correct armband on for positive identification. Bed in low position. Call jb4 light in reach. Side rails up X 1. Provided Education on: plan of care. 01:14 XRAY Chest (1 view) In Process Unspecified. EDMS 01:42 US Extremity Venous W Compression Teto In Process Unspecified. EDMS 02:24 Turner Izaguirre MD is Referral Physician. shawn 02:58 CT Chest For PE Angio In Process Unspecified. EDMS 04:03 Prince Staton MD is Hospitalizing Provider. shawn 06:43 Patient admitted, IV remains in place. cp4 Administered Medications: 00:11 Drug: Aspirin PO Chewable Tablet 324 mg PO once; 81 mg tablets x 4 Route: PO; jb4 06:35 Follow up: Response: No adverse reaction cp4 00:11 Drug: Famotidine IVP 20 mg IVP once; dilute with 10 mL 0.9% NaCl; give over 2 minutes jb4 Route: IVP; Site: left antecubital; 06:35 Follow up: Response: No adverse reaction cp4 00:11 Drug: NS 0.9% IV 1000 ml IV at 1000 ml once; to be given as a bolus over 60 minutes jb4 Route: IV; Rate: 1000 ml; Site: left antecubital; 06:35 Follow up: IV Status: Completed infusion cp4 00:11 Drug: ToPROL XL PO 50 mg PO once Route: PO; jb4 01:14 Follow up: Response: No adverse reaction cp4 02:01 Not Given (Patient Refused): ativan1 mg IVP once cp4 04:38 Drug: Ativan IVP 1 mg IVP once Route: IVP; Site: right antecubital; cp4 06:35 Follow up: Response: No adverse reaction cp4 04:38 Drug: Potassium PO Effervescent Tablet 50 mEq PO once; dissolve in 4 ounces of water or cp4 juice Route: PO; 06:35 Follow up: Response: No adverse reaction cp4 04:38 Drug: Thiamine IV 100 mg IV at bolus once Route: IV; Rate: bolus; Site: right cp4 antecubital; 06:34 Follow up: IV Status: Completed infusion cp4 04:38 Drug: Banana Bag - (Multivitamin IV 1 amp, NS 0.9% IV 1000 ml, Thiamine IV 100 mg, cp4 foLIC Acid IVPB 1 mg) IV at 125 ml/hr once Route: IV; Rate: 125 ml/hr; Site: right antecubital; 04:39 Drug: Enoxaparin Sub-Q 90 mg Sub-Q once Route: Sub-Q; Site: abdomen; cp4 06:34 Follow up: Response: No adverse reaction cp4 04:40 Drug: Lisinopril PO 20 mg PO once Route: PO; cp4 06:34 Follow up: Response: No adverse reaction cp4 Medication: 06:43 VIS not applicable for this client. cp4 Outcome: 02:24 Discharge ordered by . shawn 04:04 Decision to Hospitalize by Provider. shawn 06:43 Admitted to ER Hold. Please see [facility] for further documentation. cp4 06:43 Condition: stable 06:43 Instructed on the need for admit, 09:50 Patient left the ED. iw Signatures: Dispatcher [employer] EDAlvarez Jacobsen MD MD cha Williams, Irene, RN RN Susie Munoz4 Bello Juan RN RN jb4 Patricia Tidwell, RN RN lg3 Eve Pham cp4 Ravinder Alejandro RN RN bm8
--- NOTE | 2024-05-19 02:25 | EDPHYS ---
Physician Documentation [facility] Name: Vic Hernandez Age: 33 yrs Sex: Male : 1990 Arrival Date: 05/18/2024 Time: 22:53 Bed 6 Private MD: ED Physician Alvarez Leiva HPI: 05/18 23:43 This 33 yrs old Male presents to ER via Ambulatory with complaints of shawn Shortness Of Breath. 23:43 The patient has shortness of breath at rest. Onset: The symptoms/episode began/occurred shawn just prior to arrival. Duration: The symptoms are intermittent, with no pattern. The patient's shortness of breath has no apparent modifying factors. Associated signs and symptoms: The patient has no apparent associated signs or symptoms. Severity of symptoms: At their worst the symptoms were mild in the emergency department the symptoms are unchanged. Historical: - Allergies: 23:25 No Known Allergies; bm8 - PMHx: 23:25 ADD/ADHD; Anxiety; Heart Arrythmia; Hypertension; bm8 - PSHx: 23:25 None; bm8 - Immunization history:: Adult Immunizations up to date. - Infectious Disease History:: Denies. - Social history:: Smoking status: Patient reports the use of cigarette tobacco products, denies chronic smoking, but will smoke occasionally, Patient uses alcohol, Patient/guardian denies using. ROS: 23:44 Constitutional: Negative for fever, chills, and weight loss, Eyes: Negative for injury, shawn pain, redness, and discharge, ENT: Negative for injury, pain, and discharge, Neck: Negative for injury, pain, and swelling, Cardiovascular: Negative for chest pain, palpitations, and edema, Abdomen/GI: Negative for abdominal pain, nausea, vomiting, diarrhea, and constipation, Back: Negative for injury and pain, : Negative for injury, bleeding, discharge, and swelling, MS/Extremity: Negative for injury and deformity, Skin: Negative for injury, rash, and discoloration, Neuro: Negative for headache, weakness, numbness, tingling, and seizure, Psych: Negative for depression, anxiety, suicide ideation, homicidal ideation, and hallucinations, Allergy/Immunology: Negative for hives, rash, and allergies, Endocrine: Negative for neck swelling, polydipsia, polyuria, polyphagia, and marked weight changes, Hematologic/Lymphatic: Negative for swollen nodes, abnormal bleeding, and unusual bruising, 23:44 Respiratory: Positive for cough, shortness of breath, Exam: 23:44 Constitutional: This is a well developed, well nourished patient who is awake, alert, shawn and in no acute distress. Head/Face: Normocephalic, atraumatic. Eyes: Pupils equal round and reactive to light, extra-ocular motions intact. Lids and lashes normal. Conjunctiva and sclera are non-icteric and not injected. Cornea within normal limits. Periorbital areas with no swelling, redness, or edema. ENT: Nares patent. No nasal discharge, no septal abnormalities noted. Tympanic membranes are normal and external auditory canals are clear. Oropharynx with no redness, swelling, or masses, exudates, or evidence of obstruction, uvula midline. Mucous membranes moist. Neck: Trachea midline, no thyromegaly or masses palpated, and no cervical lymphadenopathy. Supple, full range of motion without nuchal rigidity, or vertebral point tenderness. No Meningismus. Chest/axilla: Normal chest wall appearance and motion. Nontender with no deformity. No lesions are appreciated. Cardiovascular: Regular rate and rhythm with a normal S1 and S2. No gallops, murmurs, or rubs. Normal PMI, no JVD. No pulse deficits. Respiratory: Lungs have equal breath sounds bilaterally, clear to auscultation and percussion. No rales, rhonchi or wheezes noted. No increased work of breathing, no retractions or nasal flaring. Abdomen/GI: Soft, non-tender, with normal bowel sounds. No distension or tympany. No guarding or rebound. No evidence of tenderness throughout. Back: No spinal tenderness. No costovertebral tenderness. Full range of motion. Male : Normal genitalia with no discharge or lesions. Skin: Warm, dry with normal turgor. Normal color with no rashes, no lesions, and no evidence of cellulitis. MS/ Extremity: Pulses equal, no cyanosis. Neurovascular intact. Full, normal range of motion., bilateral aka Neuro: Awake and alert, GCS 15, oriented to person, place, time, and situation. Cranial nerves II-XII grossly intact. Motor strength 5/5 in all extremities. Sensory grossly intact. Cerebellar exam normal. Normal gait. Psych: Awake, alert, with orientation to person, place and time. Behavior, mood, and affect are within normal limits. 23:44 ECG was reviewed by the Attending Physician. 05/19 02:24 ECG was reviewed by the Attending Physician. [facility] 02:25 Musculoskeletal/extremity: DVT Exam: No signs of deep vein thrombosis. no pain, no shawn swelling, no tenderness, negative Homans' sign noted on exam, no appreciated bluish discoloration, no erythema, no increased warmth, Vital Signs: 05/18 23:23 BP 171 / 109; Pulse 73; Resp 18; Temp 98.5; Pulse Ox 99% ; Weight 90.72 kg; Height 5 bm8 ft. 7 in. ; Pain 0/10; 23:59 BP 175 / 105; Pulse 67; Resp 16; Pulse Ox 98% on R/A; jb4 05/19 03:19 BP 209 / 112; Pulse 68; Resp 18; Pulse Ox 98% ; cp4 05:24 BP 158 / 116; Pulse 71; Resp 18; Pulse Ox 99% ; cp4 05/18 23:23 Body Mass Index 31.32 (90.72 kg, 170.18 cm) bm8 05/18 23:23 Pain Scale: Adult bm8 MDM: 05/18 23:38 Medical Screening Exam initiated shawn 23:45 Differential diagnosis: Anemia Anxiety Reaction Bronchitis CHF exacerbation, Chronic shawn Obstructive Pulmonary Disease Myocardial Infarction pneumonia, Pneumothorax pulmonary edema, Pulmonary Embolism reactive airway disease, Sepsis Unstable Angina. Antibiotic administration: Not indicated. Immunization status:. Data reviewed: vital signs, nurses notes, lab test result(s), EKG, radiologic studies, plain films. Consideration of Admission/Observation Escalation of care including admission/observation considered. I considered the following discharge prescriptions or medication management in the emergency department Medications were administered in the Emergency Department. See MAR. Independent interpretation of the following test(s) in the Emergency Department EKG: See my EKG interpretation above. Test considered but Not performed: Ultrasound no 2 d echo. Historians other than the Patient: pt well informed. 05/18 23:42 Order name: Basic Metabolic Panel; Complete Time: 01:05 [facility] 05/18 23:42 Order name: CBC with Diff; Complete Time: 01:05 [facility] 05/18 23:42 Order name: LFT's; Complete Time: 01:05 [facility] 05/18 23:42 Order name: Magnesium; Complete Time: 01:05 [facility] 05/18 23:42 Order name: NT PRO-BNP; Complete Time: 01:05 [facility] 05/18 23:42 Order name: PT-INR; Complete Time: 01:05 [facility] 05/18 23:42 Order name: Troponin HS; Complete Time: 01:05 [facility] 05/18 23:42 Order name: D-Dimer; Complete Time: 01:05 [facility] 05/18 23:42 Order name: Lipase; Complete Time: 01:05 [facility] 05/19 00:22 Order name: Troponin High Sensitivity: 200 am; Complete Time: 02:33 [facility] 05/19 02:47 Order name: Troponin High Sensitivity: 330 am; Complete Time: 03:51 [facility] 05/19 04:02 Order name: UDS; Complete Time: 05:18 [facility] 05/19 05:08 Order name: Basic Metabolic Panel EDMS 05/19 05:08 Order name: CBC with Automated Diff EDMS 05/19 05:08 Order name: Troponin High Sensitivity EDMS 05/19 08:09 Order name: Glucose, Ancillary Testing EDND 05/18 23:42 Order name: XRAY Chest (1 view) [facility] 05/19 01:06 Order name: US Extremity Venous W Compression Teto [facility] 05/19 01:06 Order name: CT Chest For PE Angio; Complete Time: 05:18 [facility] 05/19 05:08 Order name: Echo with Doppler EDMS 05/18 23:42 Order name: EKG; Complete Time: 23:43 [facility] 05/18 23:46 Order name: EKG: repeat; Complete Time: 23:47 [facility] 05/18 23:42 Order name: Cardiac monitoring; Complete Time: 23:43 [facility] 05/18 23:42 Order name: EKG - Nurse/Tech; Complete Time: 23:43 [facility] 05/18 23:42 Order name: IV Saline Lock; Complete Time: 23:43 [facility] 05/18 23:42 Order name: Labs collected and sent; Complete Time: 23:43 [facility] 05/18 23:42 Order name: O2 Per Protocol; Complete Time: 23:43 [facility] 05/18 23:42 Order name: O2 Sat Monitoring; Complete Time: 23:43 [facility] 05/18 23:46 Order name: EKG - Nurse/Tech; Complete Time: 23:47 [facility] EC:44 Rate is 75 beats/min. Rhythm is regular. QRS [place] is Normal. [place] interval is normal. QRS shawn interval is normal. QT interval is normal. No Q waves. T waves are Normal in lead III. No ST changes noted. Clinical impression: NSR w/ Non-specific ST/T Changes. Interpreted by me. Reviewed by me. 05/19 02:24 Rate is 53 beats/min. Rhythm is regular. QRS [place] is Normal. [place] interval is normal. QRS shawn interval is normal. QT interval is normal. No Q waves. T waves are Normal. No ST changes noted. Clinical impression: NSR w/ Non-specific ST/T Changes and No evidence of ischemia. Interpreted by me. Reviewed by me. Administered Medications: 00:11 Drug: Aspirin PO Chewable Tablet 324 mg PO once; 81 mg tablets x 4 Route: PO; jb4 06:35 Follow up: Response: No adverse reaction cp4 00:11 Drug: Famotidine IVP 20 mg IVP once; dilute with 10 mL 0.9% NaCl; give over 2 minutes jb4 Route: IVP; Site: left antecubital; 06:35 Follow up: Response: No adverse reaction cp4 00:11 Drug: NS 0.9% IV 1000 ml IV at 1000 ml once; to be given as a bolus over 60 minutes jb4 Route: IV; Rate: 1000 ml; Site: left antecubital; 06:35 Follow up: IV Status: Completed infusion cp4 00:11 Drug: ToPROL XL PO 50 mg PO once Route: PO; jb4 01:14 Follow up: Response: No adverse reaction cp4 02:01 Not Given (Patient Refused): ativan1 mg IVP once cp4 04:38 Drug: Ativan IVP 1 mg IVP once Route: IVP; Site: right antecubital; cp4 06:35 Follow up: Response: No adverse reaction cp4 04:38 Drug: Potassium PO Effervescent Tablet 50 mEq PO once; dissolve in 4 ounces of water or cp4 juice Route: PO; 06:35 Follow up: Response: No adverse reaction cp4 04:38 Drug: Thiamine IV 100 mg IV at bolus once Route: IV; Rate: bolus; Site: right cp4 antecubital; 06:34 Follow up: IV Status: Completed infusion cp4 04:38 Drug: Banana Bag - (Multivitamin IV 1 amp, NS 0.9% IV 1000 ml, Thiamine IV 100 mg, cp4 foLIC Acid IVPB 1 mg) IV at 125 ml/hr once Route: IV; Rate: 125 ml/hr; Site: right antecubital; 04:39 Drug: Enoxaparin Sub-Q 90 mg Sub-Q once Route: Sub-Q; Site: abdomen; cp4 06:34 Follow up: Response: No adverse reaction cp4 04:40 Drug: Lisinopril PO 20 mg PO once Route: PO; cp4 06:34 Follow up: Response: No adverse reaction cp4 Disposition Summary: 05/19/24 04:04 Hospitalization Ordered Notes: Hospitalization Status: Observation shawn Provider: Prince shawn Staton Condition: Fair(05/19/24 04:04) shawn Problem: new(05/19/24 04:04) shawn Symptoms: have improved(05/19/24 04:04) shawn Bed/Room Type: Standard shawn Location: [facility] ER HOLD(05/19/24 04:26) Room Assignment: ERHOLD-(05/19/24 04:26) cg Diagnosis - Dyspnea(05/19/24 04:04) shawn - Essential (primary) hypertension(05/19/24 04:04) shawn - Chest pain, unspecified shawn - Cocaine abuse shawn - Anxiety disorder, unspecified(05/19/24 04:04) shawn - Alcohol abuse, uncomplicated shawn - Hypokalemia shawn - Cardiomegaly shawn Discharge Instructions: - Discharge Summary Sheet bp Forms: - Medication Reconciliation Form shawn - SBAR form shawn - Leadership Thank You Letter shawn - Work release form bp Signatures: Dispatcher [employer] EDMS Alvarez Leiva MD MD cha Garcia, Cindy, RN RN Bello Camargo RN RN jb4 Eve Pham cp4 Ravinder Alejandro RN RN bm8 Corrections: (The following items were deleted from the chart) 01:07 01:07 Chest For PE Angio+CT.RAD.BRZ ordered. EDND EDMS 04:01 02:24 Home shawn shawn 04:01 02:24 new shawn shawn 04:01 02:24 have improved shawn shawn 04:01 02:24 Stable shawn shawn 04:01 02:24 Dyspnea shawn shawn 04:01 02:24 Essential (primary) hypertension shawn shawn 04:01 02:24 Anxiety disorder, unspecified shawn shawn 04:26 04:04 Telemetry/Med[facility]urg ([facility]ation) [facility] 04:04 [facility]
--- NOTE | 2024-05-19 03:27 | RAD REPORT ---
EXAM DESCRIPTION: Extrem Venous W Compress Teto 05/19/2024 3:21 AM CDT CLINICAL HISTORY: 33 years, Male, PAIN COMPARISON: None FINDINGS: Multiple grayscale images as well as duplex Doppler ultrasound with a color flow and spectral wavefor m of bilateral lower extremities were performed. Both common femoral veins, superficial femoral veins, popliteal veins, posterior tibial and peroneal veins at the level of the calves were imaged. Spectral waveform demonstrate normal compressibility and phasicity. No intraluminal defects were seen. IMPRESSION: No sonographic evidence of deep venous thrombosis of either lower extremity. Electronically signed by: Rowdy Guerrero MD 05/19/2024 03:21 AM CDT RP Due to temporary technical issues with the PACS/Show[employer] scribe reporting system, reports are being sign ed by the in-house radiologist without review as a courtesy to ensure prompt reporting the interpreting rad iologist is fully responsible for the content of the report. Transcribed Date/Time: 05/19/2024 3:26 AM
--- NOTE | 2024-05-19 04:15 | RAD REPORT ---
CLINICAL HISTORY: Dyspnea. COMPARISON: None. TECHNIQUE: XR CHEST 1 VIEW 05/18/2024 11:42 PM CDT FINDINGS: Cardiac silhouette is normal in size. Lungs are clear without consolidation, atelectasis, mass or david ma. There is no pleural effusion. There is no pneumothorax. There are no acute osseous findings. IMPRESSION: Clear lungs. Electronically signed by: Alejo Crisostomo MD 05/19/2024 01:58 AM CDT RP Due to temporary technical issues with the PACS/[employer] reporting system, reports are being alina d by the in-house radiologist without review as a courtesy to ensure prompt reporting the interpreting radiologist is fully responsible for the content of the report. Transcribed Date/Time: 05/19/2024 4:15 AM
--- NOTE | 2024-05-19 04:18 | RAD REPORT ---
EXAM DESCRIPTION: Chest For Pe Angio 05/19/2024 3:21 AM CDT CLINICAL HISTORY: 33 years, Male, CHEST PAIN COMPARISON: 10/10/2021 TECHNIQUE: Multiple transaxial tomograms of the chest were obtained from the lung apices through the lung bases after the administration of large bolus of IV contrast for complete opacification of the pulmonary arteries. Subsequent to 2-D and 3-D multiplanar reformats and maximum intensity projection images were generate d in the sagittal and coronal planes. An individualized dose optimization technique, Automated Exposure Control, was utilized for the perfo rmed procedure. Contrast: Intravenous contrast was administered. FINDINGS: Neck base: Visualized thyroid gland and soft tissues are normal. No adenopathy. CTA: Diagnostic quality: Adequate for assessment of the subsegmental pulmonary arteries. The pulmonary arteries are adequately opacified. No evidence of pulmonary emboli or right heart strain. No acute finding in the thoracic aorta. CHEST: Lungs: The lung parenchyma demonstrate to be clear. No significant pulmonary nodules, masses and/or c onsolidations. Airways: The trachea mainstem bronchus demonstrate to be within normal limits. Pleura: No evidence for significant pleural effusions. The diaphragms are well positioned. There is n o evidence for pneumothorax. Mediastinum and bernabe: There is no significant mediastinal and/or hilar lymphadenopathy. The axillary regions demonstrate to be clear. Heart: Borderline enlarged. No pericardial thickening or effusion. Vessels: Coronary: No significant coronary artery calcifications. Aorta: The thoracic aorta demonstrate to be within normal limits. No evidence for aneurysm an/or d issection. Other: There is no significant filling defects within the pulmonary arteries to suggest pulmonary embolus. Osseous structures: The thoracic spine demonstrate to be within normal limits. No evidence for compre ssion deformities and/or significant skeletal lesions. Musculoskeletal: No soft tissue and/or musculoskeletal abnormality. Visualized upper abdomen: The visualized portions of the upper abdomen demonstrate increased size of the liver with decreased attenuation. IMPRESSION: No evidence of pulmonary embolism. Borderline enlarged heart. Fatty infiltration of the liver. Electronically signed by: Rowdy Guerrero MD 05/19/2024 03:23 AM CDT Due to temporary technical issues with the PACS[employer] reporting system, reports are being alina d by the in-house radiologist without review as a courtesy to ensure prompt reporting the interpreting radiologist is fully responsible for the content of the report. Transcribed Date/Time: 05/19/2024 4:17 AM
[2024-05-19] MEDS ORDERED: ENOXAPARIN 100 MG/ML SYR SQ ONE (04:23)
[2024-05-19] MEDS ORDERED: LORazepam 2 MG/ML VIAL ONE (04:24)
[2024-05-19] MEDS ORDERED: THIAMINE 200 MG/2 ML INJ ONE (04:24)
[2024-05-19] MEDS ORDERED: lisinopriL 20 MG TAB ONE (04:24)
[2024-05-19] MEDS ORDERED: POTASSIUM 25 MEQ EFFERV TAB ONE (04:24)
[2024-05-19] MEDS ORDERED: MULTIVITAMINS 10 ML VIAL (INJ) IV ONE (04:25)
[2024-05-19] MEDS ORDERED: FOLIC ACID 5 MG/ML VIAL ONE (04:25)
[2024-05-19] MEDS ORDERED: NITROGLYCERIN 0.4 MG/TAB SL PRN (05:04)
--- NOTE | 2024-05-19 05:12 | P.HP ---
Certification for Inpatient Patient admitted to: Observation With expected LOS: <2 Midnights Practitioner: I am a practitioner with admitting privileges, knowledge of patient current condition, hospital course, and medical plan of care. Services: Services provided to patient in accordance with Admission requirements found in Title 42 Section 412.3 of the Code of Federal Regulations Patient History Date of Service: 05/19/24 Reason for admission: Dyspnea on exertion History of Present Illness: Patient is a 33-year-old male with a past medical history of hypertension. He presented to the ER complaining of dyspnea on exertion. He has noticed that his exercise tolerance has been worsening recently. He getting more tired than normal. Associated symptoms include weight gain. He has gone from 170 to 205 lbs. On the day of admission, patient was gasping for air while he was trying to get some sleep. This prompted his ER visit. Last echo from 2021 revealed a normal systolic and diastolic function. During today's visit, troponins are negative x 3. Patient continues to be symptomatic. CT chest ruled out pulmonary embolism but revealed cardiomegaly. Allergies No Known Allergies Allergy (Verified 04/19/19 03:22) Home Medications: Amox/Clavulanate [Augmentin 875-125 Tab*] 875 mg PO BID #10 tab 10/12/21 Aspirin Chewable [Aspirin Chewable*] 81 mg PO DAILY #30 tab.chew 10/12/21 Atorvastatin Calcium [Lipitor] 40 mg PO DAILY #30 tab 10/12/21 Thiamine HCl [Vitamin B-1*] 100 mg PO DAILY #30 10/12/21 Hydrocodone 5/APAP 325 [[place] 5/325] 1 tab PO Q6H PRN #30 tab 10/13/21 Methylprednisolone [Medrol dosepack] 4 mg PO DIRECTED #1 cholo 10/13/21 - Past Medical/Surgical History Diabetic: No -: anxiety -: panic disorder -: drug/alcohol abuse -: smoker (quit early February) -: arrythmia - Family History Father -: Heart disease, Hypertension, Diabetes Notes: cardiac arrest Mother -: Liver disease Notes: cirrhosis. spinal stenosis - Social History Alcohol use: Yes CD- Drugs: Yes Caffeine use: No Physical Examination - Physical Exam General: Acute distress HEENT: Atraumatic, Normocephalic Respiratory: Normal air movement Cardiovascular: No edema, Normal pulses, Regular rate/rhythm, Normal S1 S2 Neurological: Normal speech - Studies Laboratory Data (last 24 hrs) 05/18/24 05/18/24 05/18/24 23:57 23:57 23:57 WBC 9.10 Hgb 14.1 Hct 39.1 L Plt Count 284 PT 9.6 L INR 0.83 Sodium 138 Potassium 3.3 L BUN 23 H Creatinine 1.26 Glucose 125 H Magnesium 2.3 Total Bilirubin 0.3 AST 29 ALT 75 H Alkaline Phosphatase 83 Lipase 45 Assessment and Plan - Problems (Diagnosis) (1) Dyspnea on exertion Current Visit: Yes Status: Acute (2) Chest pain, rule out acute myocardial infarction Current Visit: No Status: Acute (3) Polysubstance (excluding opioids) dependence Current Visit: No Status: Acute - Plan Assessment This is a 33-year-old male with past medical history of hypertension. He is being admitted after presented with dyspnea on exertion and poor exercise tolerance. ACS has been ruled out with negative cardiac enzymes. Patient continues to be symptomatic. CT chest revealed cardiomegaly. BNP within normal limits urine toxicology pending. Of note, patient was severely hypertensive in the ER with SBP of 204 mmHg. Dyspnea on exertion, probably from hypertensive crisis Hypertensive urgency Hypokalemia Plan: Will admit under observation with telemetry Potassium replacement. Also follow mag and Phos Obtain a 2D echo Blood pressure control: As needed IV hydralazine and scheduled nifedipine He may need 2 or more antihypertensive agent to achieve goal of blood pressure less than 130 mmHg Follow urine toxicology Resume rest of home medication reconciliation - Advance Directives Does patient have a Living Will: No Does patient have a Durable POA for Healthcare: No
[2024-05-19] MEDS: NIFEDIPINE XL 30 MG TABLET PO SCH (05:13)
[2024-05-19] MEDS ORDERED: HYDRALAZINE HCL 20 MG/ML VIAL IV PRN (05:13)
[2024-05-19 05:14] LABS: Barbiturates NEGATIVE (NEGATIVE); Benzodiazepines NEGATIVE (NEGATIVE); Cocaine POSITIVE (NEGATIVE); METHAMPHETAM NEGATIVE (NEGATIVE); Methadone NEGATIVE (NEGATIVE); Opiates NEGATIVE (NEGATIVE); Phencyclidine NEGATIVE (NEGATIVE); THC Cannibis NEGATIVE (NEGATIVE)
[2024-05-19 06:20] VITALS: TEMP 98.5
[2024-05-19] MEDS ORDERED: NIFEdipine 10 MG CAP ONE (06:24)
[2024-05-19 06:40] VITALS: BMI 31.3
[2024-05-19 07:32] LABS: Absolute Basophils 0.1 K/uL (0-0.5); Absolute Eosinophils 0.1 K/uL (0-0.5); Absolute Lymphocytes (CBC) 2.3 K/uL (0.7-4.9); Absolute Monocytes 0.6 K/uL (0.1-1.3); Eosinophils % 1.1 % (0-4.4); Hematocrit 42.6 % (39.6-49.0); Hemoglobin 14.6 g/dL (13.6-17.9); Lymphocytes % 20.8 % (15.3-44.8); MCH 30.4 pg (27.0-35.0); MCHC 34.4 g/dL (32.0-36.0); MCV 88.3 fL (80-100); MPV 7.6 fL (7.6-11.3); Neutrophils % 72.1 % (41.7-73.7); Nucleated Red Blood Cells % 0.1 % (0-0); Platelets 331 thou/uL (152-406); RBC Red Blood Cell Count 4.82 M/uL (4.33-5.43); Red Cell Distribution Width 12.8 % (12.1-15.2)
[2024-05-19 07:45] LABS: Anion Gap 8.6 mEq/L (5.0-15.0); Potassium 4.6 mEq/L (3.5-5.1)
[2024-05-19 08:57] VITALS: O2SAT 100
[2024-05-19] MEDS: ASPIRIN EC 81 MG TAB PO SCH (09:00)
[2024-05-19] MEDS: ALPRAZOLAM 0.5 MG TABLET PO ONE (09:08)
[2024-05-19] MEDS ORDERED: ALPRAZOLAM 0.5 MG TABLET ONE (09:25)
[2024-05-19 09:40] VITALS: BP 165/85
--- NOTE | 2024-05-19 14:31 | P.DS ---
Admission Date: 05/19/24 Discharge Date: 05/19/24 Disposition: ROUTINE DISCHARGE Discharge Condition: GOOD Reason for Admission: Dyspnea on exertion Brief History of Present Illness: Patient is a 33-year-old male with a past medical history of hypertension. He presented to the ER complaining of dyspnea on exertion. He has noticed that his exercise tolerance has been worsening recently. He getting more tired than normal. Associated symptoms include weight gain. He has gone from 170 to 205 lbs. On the day of admission, patient was gasping for air while he was trying to get some sleep. This prompted his ER visit. Last echo from 2021 revealed a normal systolic and diastolic function. During today's visit, troponins are negative x 3. Patient continues to be symptomatic. CT chest ruled out pulmonary embolism but revealed cardiomegaly. Hospital Course: Patient was admitted to the hospital for dyspnea on exertion, he has a history of hypertension. He had a CTA of his chest which was negative for pulmonary embolism or any pulmonary edema, did reveal mild cardiomegaly. This morning he is feeling much better. His blood pressure is normal he had negative troponins x 4 his BNP is 28. He is stable for discharge and outpatient follow-up with cardiology as well as psychiatry for his anxiety. CT did also mention fatty liver, this was discussed with patient, recommend cessation of alcohol and low-fat diet. Please follow-up with your primary care doctor in 1 to 2 weeks to repeat CBC, CMP Follow-up with cardiologyDr. Zina in 1 week Follow-up with psychiatry 2 weeks Do not use cocaine as it can cause heart problems/risk of Alcohol cessation if you drink given fatty liver present on CT Eat a low-fat diet Vital Signs/Physical Exam: Temp Pulse Resp BP Pulse Ox 98.5 F 89 18 165/85 H 97 05/19/24 05:04 05/19/24 09:04 05/19/24 09:04 05/19/24 09:04 05/19/24 09:04 General: Alert, In no apparent distress, Oriented x3 HEENT: Atraumatic, PERRLA Neck: Supple, JVD not distended Respiratory: Clear to auscultation bilaterally, Normal air movement Cardiovascular: Regular rate/rhythm, Normal S1 S2 Gastrointestinal: Normal bowel sounds, No tenderness Musculoskeletal: No tenderness Integumentary: No rashes Neurological: Normal speech Laboratory Data at Discharge: WBC 11.10 thou/uL (4.3-10.9) H 05/19/24 07:20 Hgb 14.6 g/dL (13.6-17.9) 05/19/24 07:20 Hct 42.6 % (39.6-49.0) 05/19/24 07:20 Plt Count 331 thou/uL (152-406) 05/19/24 07:20 PT 9.6 SECONDS (10-13.0) L 05/18/24 23:57 INR 0.83 05/18/24 23:57 Sodium 136 mEq/L (136-145) 05/19/24 07:20 Potassium 4.6 mEq/L (3.5-5.1) D 05/19/24 07:20 BUN 18 mg/dL (7-18) 05/19/24 07:20 Creatinine 1.20 mg/dL (0.70-1.30) 05/19/24 07:20 Glucose 135 mg/dL (74-106) H 05/19/24 07:20 Magnesium 2.3 mg/dL (1.6-2.4) 05/18/24 23:57 Total Bilirubin 0.3 mg/dL (0.2-1.0) 05/18/24 23:57 AST 29 U/L (15-37) 05/18/24 23:57 ALT 75 U/L (16-61) H 05/18/24 23:57 Alkaline Phosphatase 83 U/L (45-117) 05/18/24 23:57 Lipase 45 U/L (13-75) 05/18/24 23:57 Home Medications: Amox/Clavulanate [Augmentin 875-125 Tab*] 875 mg PO BID #10 tab 10/12/21 Aspirin Chewable [Aspirin Chewable*] 81 mg PO DAILY #30 tab.chew 10/12/21 Atorvastatin Calcium [Lipitor] 40 mg PO DAILY #30 tab 10/12/21 Thiamine HCl [Vitamin B-1*] 100 mg PO DAILY #30 10/12/21 Hydrocodone 5/APAP 325 [[place] 5/325] 1 tab PO Q6H PRN #30 tab 10/13/21 Methylprednisolone [Medrol dosepack] 4 mg PO DIRECTED #1 cholo 10/13/21 Physician Discharge Instructions: Patient was admitted to the hospital for dyspnea on exertion, he has a history of hypertension. He had a CTA of his chest which was negative for pulmonary embolism or any pulmonary edema, did reveal mild cardiomegaly. This morning he is feeling much better. His blood pressure is normal he had negative troponins x 4 his BNP is 28. He is stable for discharge and outpatient follow-up with cardiology as well as psychiatry for his anxiety. CT did also mention fatty liver, this was discussed with patient, recommend cessation of alcohol and low-fat diet. Please follow-up with your primary care doctor in 1 to 2 weeks to repeat CBC, CMP Follow-up with cardiologyDr. Zina in 1 week Follow-up with psychiatry 2 weeks Do not use cocaine as it can cause heart problems/risk of Alcohol cessation if you drink given fatty liver present on CT Eat a low-fat diet Diet: AHA Activity: Ad arabella Followup: Kendall Toscano [ACTIVE - CAN ADMIT] - 1-2 Weeks NONE,NONE [Primary Care Provider] - 1-2 Weeks Turner Izaguirre MD [ACTIVE - CAN ADMIT] - 1-2 Weeks Time spent managing pt's care (in minutes): 55
--- NOTE | 2024-05-21 11:25 | EKG ---
Test Date: 2024-05-19 Test Time: 01:58:48 Biological Scientist: ERIKA MEASUREMENT RESULTS: Intervals: Rate: 53 IN: 196 QRSD: 102 QT: 414 QTc: 388 Cheney: P: 59 IN: 196 QRS: 53 T: 38 INTERPRETIVE STATEMENTS: Sinus bradycardia with marked sinus arrhythmia Nonspecific ST abnormality Abnormal ECG Compared to ECG 05/18/2024 23:37:49 ST (T wave) deviation now present Sinus rhythm no longer present Myocardial infarct finding no longer present Electronically Signed On 05-21-24 11:20:31 CDT by Rolf Mcdonald
--- NOTE | 2024-05-21 11:25 | EKG ---
Test Date: 2024-05-18 Test Time: 23:37:49 Shipping Weigher: AF MEASUREMENT RESULTS: Intervals: Rate: 75 HI: 206 QRSD: 102 QT: 358 QTc: 399 Maupin: P: 50 HI: 206 QRS: 45 T: -2 INTERPRETIVE STATEMENTS: Normal sinus rhythm Cannot rule out Anterior infarct, age undetermined Abnormal ECG Compared to ECG 10/10/2021 10:29:28 Myocardial infarct finding now present Sinus tachycardia no longer present Ventricular premature complex(es) no longer present T-wave abnormality no longer present Electronically Signed On 05-21-24 11:20:38 CDT by Rolf Mcdonald
== END 2024-05-19 09:40 | disposition home or self-care (01) ==
LOC: ER 22:53 → ERHOLD 05-19 05:04
PROVIDERS: ADMIT Internal Medicine; ATTEND Hospitalist
DX: R06.02 Shortness of breath (principal); R07.9 Chest pain, unspecified; I10 Essential (primary) hypertension; I51.7 Cardiomegaly; I16.0 Hypertensive urgency; E87.6 Hypokalemia; K76.0 Fatty (change of) liver, not elsewhere classified; F41.9 Anxiety disorder, unspecified; F14.90 Cocaine use, unspecified, uncomplicated; Z71.51 Drug abuse counseling and surveillance of drug abuser; Z79.82 Long term (current) use of aspirin
CPT/HCPCS: 36415; 71045; 71275; 80048; 80076; 80307; 82947; 83690; 83735; 83880; 84484; 85025; 85379; 85610; 93005; 93970; 96372; 99285; G0378; J1650; J3411; J7030; Q9967